=== PATIENT | female | born 1935 | race Caucasian/White ===

== ENCOUNTER → 2017-08-03 | Outpatient (CLI) | payer OTHER, MEDICARE ==
[~2017-08-03] MED LIST: AMOX500C3 PO; ASPEC81 PO; ATOR-22 PO; BIMA0.01 OPB; GADAVIST IV PRN; LEVO50TA6 PO; MULT-506 PO; SENN-65 PO; TIMO0.2534 OPB; WARF5TAB7 PO; [UNRECOGNIZED DRUG - OTHER] PO
--- NOTE | 2017-08-03 16:01 | DIAGNOSTIC IMAGING REPORT ---
BRAIN COMBO HISTORY: 82 years-old Female G31.84 Mild cognitive impairment chronic memory loss COMPARISON: CT head 08/15/2011 TECHNIQUE: Multiplanar multisequence MRI of the brain was obtained both with and without the use of 6.5 mL Gadavist FINDINGS: There is no restricted diffusion to suggest acute infarction. The midline structures including the corpus callosum, brainstem, infundibulum and pituitary gland and optic chiasm appear unremarkable the sagittal T1 images. No cerebellar tonsillar herniation. Degenerative changes of the imaged cervical spine. There is no acute intracranial hemorrhage, midline shift, abnormal extra-axial collections, hydrocephalus or intracranial mass identified. There is moderate generalized cerebral and cerebellar atrophy with ex vacuo ventriculomegaly. Multifocal patchy areas of increased T2/FLAIR signal are noted within the subcortical, deep and periventricular white matter of the cerebral hemispheres bilaterally. Major flow voids at the level of the skull base appear patent. Orbits appear unremarkable. Trace left mastoid effusion. Mild ethmoid sinus disease. Scalp, covering and soft tissues are unremarkable. There is no abnormal intra-axial or extra-axial enhancement identified. IMPRESSION: 1. No acute intracranial abnormality identified. No acute infarction or abnormal enhancement. 2. Moderate atrophy with ex vacuo ventriculomegaly. 3. Multifocal patchy areas of increased T2/FLAIR signal are noted within the subcortical, deep and periventricular white matter of the cerebral hemispheres bilaterally suggesting mild chronic microvascular ischemic changes. 4. Trace left mastoid effusion. The above report was generated using voice recognition software. It may contain grammatical, syntax or spelling errors. Electronically signed by: Wilfredo Javier M.D. 08/03/2017 4:00 PM Dictated Date/Time: 08/03/2017 3:53 PM
== END | disposition home or self-care (01) ==
LOC: C.MRI 14:03
PROVIDERS: ATTEND Psychiatry & Neurology Neurology
DX: G31.84 Mild cognitive impairment of uncertain or unknown etiology (principal)

== ENCOUNTER → 2017-09-15 | Outpatient (CLI) | payer OTHER, MEDICARE ==
[~2017-09-15] MED LIST changes: -GADAVIST IV PRN
== END | disposition home or self-care (01) ==
LOC: C.LAB1850 13:42
PROVIDERS: ATTEND Psychiatry & Neurology Neurology
DX: G31.84 Mild cognitive impairment of uncertain or unknown etiology (principal)

== ENCOUNTER 2018-12-11 11:01 | Inpatient (IN) ==
[2018-12-11] MEDS ORDERED: SODIUM CHLORIDE 0.9% 1000ML 1,000 ML IV ONE (11:23)
[2018-12-11 11:55] LABS: Hematocrit (blood only) 40.1 % (37-47); Hemoglobin 13.9 g/dL (12.0-16.0); Mean Corpuscular Hgb Conc 34.7 g/dL (32-36); Mean Corpuscular Volume 90.3 fL (80-100); Mean Platelet Volume 10.1 fL (7.4-10.4); Platelet Count 155 K/uL (130-400); RDW Coefficient of Variation 14.7 % (11.5-14.5); RDW Standard Deviation 48.4 fL (36.4-46.3); Red Blood Count 4.44 M/uL (4.2-5.4); White Blood Count 15.49 K/uL (4.8-10.8)
[2018-12-11 12:12] LABS: BUN Creatinine Ratio 23.6 (10-20); Calcium 9.2 mg/dl (8.5-10.1); Creatinine Clr Calc Pharmacy 50.7 ml/min; Est GFR (African American) 78.4; Est GFR (Non-African American) 67.6; Potassium 3.4 mmol/L (3.5-5.1)
[2018-12-11 12:13] LABS: Partial Thromboplastin Ratio 1.5; Partial Thromboplastin Time 39.8 Seconds (21.0-31.0); Prothrombin Time 33.5 Seconds (9.0-12.0)
[2018-12-11 12:15] LABS: INR 3.6 (0.9-1.1)
[2018-12-11 12:16] LABS: Troponin I 0.022 ng/ml (0-0.045)
[2018-12-11 12:17] LABS: Basophils # (auto) 0.01 K/uL (0-0.2); Basophils % (auto) 0.1 %; Eosinophils # (auto) 0.01 K/uL (0-0.5); Eosinophils % (auto) 0.1 %; Immature Granulocytes # (auto) 0.06 K/uL (0.00-0.02); Immature Granulocytes % (auto) 0.4 %; Lymphocytes # (auto) 1.12 K/uL (1.2-3.4); Lymphocytes % (auto) 7.2 %; Monocytes # (auto) 0.72 K/uL (0.11-0.59); Monocytes % (auto) 4.6 %; Neutrophils # (auto) 13.57 K/uL (1.4-6.5); Neutrophils % (auto) 87.6 %
--- NOTE | 2018-12-11 12:21 | XRay Report ---
XR chest 1V portable CLINICAL HISTORY: fall COMPARISON STUDY: Chest radiograph January 14, 2014. FINDINGS: There is no pneumothorax or pleural effusion. Moderate cardiomegaly is noted with a prosthe tic cardiac valve and median sternotomy wires. There is no evidence for pulmonary edema. There is min imal left lower lung interstitial thickening. This is probably chronic or reflects atelectasis. IMPRESSION: No acute cardiopulmonary findings. Electronically signed by: Osiel Tafoya M.D. 12/11/2018 12:20 PM
--- NOTE | 2018-12-11 12:22 | XRay Report ---
XR pelvis 1-2V routine CLINICAL HISTORY: Fall. COMPARISON: None FINDINGS: The sacroiliac joints and symphysis pubis are intact. There is no acute fracture within th e pelvis or the hips. IMPRESSION: No acute fracture within the pelvis or hips. Electronically signed by: Osiel Tafoya M.D. 12/11/2018 12:20 PM
[2018-12-11] MEDS ORDERED: IOVERSOL 100ml IV PRN (12:34)
--- NOTE | 2018-12-11 12:40 | CT Scan Report ---
CT OF THE HEAD WITHOUT CONTRAST CLINICAL HISTORY: Fall. Weakness. COMPARISON STUDY: Head CT January 14, 2014. MRI of the brain August 03, 2017. CT DOSE: 1900.40 mGy.cm TECHNIQUE: Helical axial images of the head were obtained without IV contrast. Automated exposure con trol was utilized for the study. A dose lowering technique was utilized adhering to the principles o f ALARA. FINDINGS: No acute intracranial hemorrhage, midline shift or mass effect is present. Ventricular dila tation is unchanged and likely due to atrophy. Basilar cisterns are patent. There are no extra axial collections. There are no findings to suggest acute dural sinus thrombosis or acute territorial infar ct. There is no calvarial fracture. IMPRESSION: 1. No acute intracranial findings. 2. No calvarial fracture. Electronically signed by: Osiel Tafoya M.D. 12/11/2018 12:38 PM
--- NOTE | 2018-12-11 12:43 | CT Scan Report ---
CT OF THE CERVICAL SPINE WITHOUT CONTRAST CLINICAL HISTORY: Fall. Weakness. COMPARISON STUDY: Cervical spine radiographs May 02, 2009. TECHNIQUE: Helical axial images of the cervical spine were obtained without IV contrast. Sagittal a nd coronal reconstructions were viewed. Automated exposure control was utilized for the study. A do se lowering technique was utilized adhering to the principles of ALARA. FINDINGS: Craniocervical junction is intact and there is no acute cervical spine fracture. Mild anter olisthesis of C4 on C5 is similar to prior exam. There is marked disc space narrowing with osteophyto sis at C5-C6 and C6-C7. There is severe multilevel facet arthrosis. There is no prevertebral edema. T he facet joints are intact. IMPRESSION: No acute cervical spine fracture or subluxation. Electronically signed by: Osiel Tafoya M.D. 12/11/2018 12:41 PM
--- NOTE | 2018-12-11 13:00 | CT Scan Report ---
CT OF THE ABDOMEN AND PELVIS WITH CONTRAST CLINICAL HISTORY: Fall. COMPARISON STUDY: Right upper quadrant ultrasound February 23, 2018. TECHNIQUE: Following IV administration of 94 mL of [id number], axial images of the abdomen and pelvi s were obtained from the lung bases to the proximal femurs. Images were reviewed in the axial, sagitt al, and coronal planes. IV contrast was administered without complication. Automated exposure contro l was utilized for the study. A dose lowering technique was utilized adhering to the principles of A CUCA. FINDINGS: No hemoperitoneum or pneumoperitoneum is present. There is moderate cardiomegaly. Prostheti c mitral valve is noted. Left lower lobe opacity is/interstitial thickening is likely chronic. There is a gallstone within the gallbladder without evidence for acute cholecystitis. There is no evidence for traumatic injury to the liver, spleen, adrenal glands, kidneys or pancreas. A 1.4 cm left adrenal nodule is indeterminate although statistically benign. Abdominal aorta is ectatic. There is no evide nce for a bowel obstruction. Caliber and wall thickness of small and large bowel are normal. There is no ascites or lymphadenopathy. There is moderate atherosclerotic plaque within the major vessels. No acute lumbar spine or pelvic fracture is identified. The endometrial/endometrial cavity is prominent . A 1.1 cm focus of enhancement along the right aspect of the endometrium is noted. IMPRESSION: 1. No acute traumatic findings within the abdomen or pelvis. 2. Prominence of the endometrium which may reflect endometrial thickening or fluid within the canal. 1.1 cm nodular enhancing focus along the right second endometrium with a few additional enhancing aldair rine lesions. These may reflect fibroids however the findings could be correlated with evidence for p ostmenopausal bleeding. If present, gynecologic consultation is recommended. 3. Cholelithiasis. 4. Stable dilatation of the proximal abdominal aorta. Electronically signed by: Osiel Tafoya M.D. 12/11/2018 12:58 PM
[2018-12-11 13:20] LABS: Appearance Urine Clear (Clear); Bacteria Urine Automated Negative (Negative); Bilirubin Urine Negative (Negative); Blood Urine 2+ (Negative); Color Urine Dark Yellow; Glucose Urine UA Negative (Negative); Ketones Urine Negative (Negative); Leukocyte Esterase Urine Negative (Negative); Nitrite Urine Negative (Negative); Protein Urine Negative (Negative); Specific Gravity Urine 1.044 (1.000-1.030); Urobilinogen Urine Negative (Negative)
[2018-12-11] MEDS ORDERED: cefTRIAXone SODIUM 1,000 MG/50 ML BAG IV STA (13:31)
--- NOTE | 2018-12-11 14:25 | Emergency Department Note ---
Entered by Bradly Wren acting as a scribe for History of Present Illness General Chief complaint: Fall Stated complaint: FALL IN RESTROOM Time Seen by Provider: 12/11/18 11:14 Source: patient History of Present Illness Provider complaint: syncopal episode Onset (ago): day(s) 1 Location: head Radiation: non-radiation Severity: similar to prior episodes Pain Consistency: + constant Quality: + aching Relieved By: + none Exacerbated By: + none Associated symptoms: + weakness; no fever/chills and no shortness of breath Treatments prior to arrival: none The patient is an 83 year old female who presents to the emergency department with complaints of a fall last night. The patient's friend states she found the patient on the floor this morning in the bathroom when she was coming to see her after making her breakfast. She states that the patient did not know how she fell and 10 minutes later she could not remember anything. He recently traveled back from [place] 2 days ago. Before her travel to [place], she went to the hospital in [place] for disorientation and her last INR was four and she was started on Keflex for a possible UTI infection from her PCP. She is on Coumadin. The patient reports having intermittent nausea. She denies any fever or shortness of breath. Home Medications Home Medications Medication Instructions Recorded Confirmed Type acetaminophen 325 mg capsule 325 mg PO QAM PRN cap 03/31/18 12/11/18 History aspirin 81 mg tablet,delayed 81 mg PO QPM 03/31/18 12/11/18 History release atorvastatin 20 mg tablet 20 mg PO QPM 03/31/18 12/11/18 History bimatoprost 0.01 % eye drops 1 drops OP QAM 03/31/18 12/11/18 History calcium carbonate 500 mg calcium 500 mg PO QPM tab 03/31/18 12/11/18 History (1,250 mg) tablet donepezil 5 mg tablet 5 mg PO QPM 03/31/18 12/11/18 History levothyroxine 50 mcg capsule 50 mcg PO QPM 03/31/18 12/11/18 History multivitamin tablet 1 tab PO QPM 03/31/18 12/11/18 History sennosides 8.6 mg-docusate sodium 1 tab PO DAILY 03/31/18 12/11/18 History 50 mg tablet warfarin 5 mg tablet See Rx Instructions .ROUTE 03/31/18 12/11/18 History .COMPLEX tab cyanocobalamin (vit B-12) 1,000 1,000 mcg PO QPM 12/09/18 12/11/18 History mcg tablet dorzolamide-timolol 1 drp OPB BID 12/11/18 12/11/18 History warfarin See Rx Instructions .ROUTE .COMPLEX 12/11/18 12/11/18 History Allergies Allergy/AdvReac Type Severity Reaction Status Date / Time No Known Allergies Allergy Unverified 12/11/18 11:32 Past Med/Surg History Medical History Bronchitis (Resolved) Dizziness (Acute) Encounter for monitoring coumadin therapy (Acute) A-fib (Acute) Herpes zoster (Acute) Dementia Bilateral leg pain (Acute) Supratherapeutic INR (Acute) Surgical History H/O mitral valve replacement (Resolved) Social History Preferred Language: Maori Feels Safe at Home: Yes Smoking Status: Former smoker Review of Systems See HPI for pertinent positives & negatives. and A total of 10 systems reviewed and were otherwise negative Physical Exam Vital Signs Vital Signs - 24 hr 12/11/18 11:05 12/11/18 11:15 12/11/18 11:30 Temperature 36.4 C L Temperature Source Oral Sepsis Recent Fever Within 48 Hours No Sepsis New/Unexplained Change in Mental Status No Sepsis Action Taken by Nursing No Action Required Pulse Rate 85 105 H 83 Pulse Rate from SpO2 Sensor 99 H Respiratory Rate 97 H 19 20 Respiratory Effort / Characteristics Non-Labored Spontaneous Blood Pressure 87/64 L 98/66 L 94/69 L Blood Pressure Mean 71 76 77 Blood Pressure Position Sitting Pulse Oximetry 97 96 95 Oxygen Delivery Method Room Air Room Air Room Air 12/11/18 12:00 12/11/18 12:37 12/11/18 13:00 Temperature Temperature Source Sepsis Recent Fever Within 48 Hours Sepsis New/Unexplained Change in Mental Status Sepsis Action Taken by Nursing Pulse Rate 101 H 77 72 Pulse Rate from SpO2 Sensor 72 77 77 Respiratory Rate 16 21 21 Respiratory Effort / Characteristics Blood Pressure 99/65 L 106/69 120/75 Blood Pressure Mean 76 81 90 Blood Pressure Position Pulse Oximetry 94 96 97 Oxygen Delivery Method Room Air Room Air Room Air GENERAL: She is oriented to person, place, and time. She appears well-developed and well-nourished. She does not appear distressed. HENT: Exam performed. Head: Normocephalic and atraumatic. Right Ear: External ear normal. No mastoid tenderness. Left Ear: External ear normal. No mastoid tenderness. Mouth/Throat: The oropharynx is clear and moist. No trismus in the jaw. No dental abscesses or uvula swelling. No oropharyngeal exudate or tonsillar abscesses. EYES: Conjunctivae and EOM are normal. Pupils are equal, round, and reactive to light. Right eye exhibits no discharge. Left eye exhibits no discharge. No scleral icterus. NECK: Normal range of motion. Neck supple. No JVD present. No spinous process tenderness present. No carotid bruit present. No rigidity. No tracheal deviation and normal range of motion present. No Brudzinski's sign and no Kernig's sign noted. CV: Heart murmur. Normal rate, irregular rhythm and intact distal pulses. There is no peripheral edema. Palpable radial pulses bue. PULM/CHEST: Effort normal and breath sounds normal. No respiratory distress. No stridor. She has no wheezes. She has no rales. Chest Wall: She exhibits no tenderness. ABD: The abdomen is soft. Bowel sounds are normal. She has no distension. No mass is present. There is no tenderness. There is no rebound, no guarding, no Moran's sign and no tenderness at McBurney's point. Rovsig negative MUSC/SKEL: Normal range of motion. There is no peripheral edema or deformity. No CT lumbar spine tenderness. Pelvis stable. LYMPH: No cervical adenopathy. NEURO: She is alert and oriented to person, place, and time. She has normal strength. No cranial nerve deficit or sensory deficit. Coordination and gait normal. GCS eye subscore is 4. GCS verbal subscore is 5. GCS motor subscore is 6 . cerbellar tests wnl. SKIN: Skin is warm and dry. She is not diaphoretic. PSYCH: She has a normal mood and affect. Her behavior is normal. Judgment and thought content normal. Procedures FAST Exam FAST Exam 1: Fluid in Morison's pouch: No Fluid in Splenorenal Junction: No Fluid around bladder, Transverse view: No Fluid around bladder, Sagittal view: No Fluid in Pericardial Sac: No Gross Wall Motion Abnormality: No Study normal for this patient: Yes Course 1114:The patient was evaluated in room B7. A physical exam was performed.The patient was initially found to be hypotensive and was placed on monitor tech and had a large bore IV access to obtain fluid was started, bedside FAST negative, see procedure note. 1334: Vital signs are stable and there is no traumatic injury. Mild elevation of leukocyte count is 15.4 and her lactic acid level is 2.1. The patient's blood pressure improved status post 1 L IV fluid bolus. I discuss the results with the family and the patient. Her WBC and lactic acid values show that she could have a UTI. The family does not feel comfortable taking her home due to the recent fall. Dr. Ayala- [facility] hospitalist, agreed to accept the patient for further evaluation. Administered Medications Ioversol (Optiray 320 100ml) 94 ml IV ONCE PRN PRN Reason: Interaction Checking Stop: 12/15/18 12:33 Last Admin: 12/11/18 12:35 Dose: 1 ml Documented by: [id number] Discontinued Medications Sodium Chloride (Nss 1000ml) 1,000 mls @ 999 mls/hr IV .Q1H1M ONE Stop: 12/11/18 12:23 Last Infusion: 12/11/18 12:43 Dose: 0 mls/hr Documented by: [id number] Admin: 12/11/18 11:42 Dose: 999 mls/hr Documented by: [id number] Medical Decision Making Medical Records Attestation: I reviewed the patient's medical records. Home Medications Current Medication List: was personally reviewed by me Laboratory Data Attestation: I reviewed the patient's lab results. Result diagrams: 12/11/18 11:33 12/11/18 11:33 Lab Results 12/11/18 12/11/18 12/11/18 Range/Units 11:33 11:33 11:33 WBC 15.49 H (4.8-10.8) K/uL RBC 4.44 (4.2-5.4) M/uL Hgb 13.9 (12.0-16.0) g/dL Hct 40.1 (37-47) % MCV 90.3 (80-100) fL MCH 31.3 (25-34) pg MCHC 34.7 (32-36) g/dL RDW Std Deviation 48.4 H (36.4-46.3) fL RDW Coeff of Asa 14.7 H (11.5-14.5) % Plt Count 155 (130-400) K/uL MPV 10.1 (7.4-10.4) fL Immature Gran % (Auto) 0.4 % Neut % (Auto) 87.6 % Lymph % (Auto) 7.2 % Louisa % (Auto) 4.6 % Eos % (Auto) 0.1 % Baso % (Auto) 0.1 % Immature Gran # (Auto) 0.06 H (0.00-0.02) K/uL Neut # (Auto) 13.57 H (1.4-6.5) K/uL Lymph # (Auto) 1.12 L (1.2-3.4) K/uL Louisa # (Auto) 0.72 H (0.11-0.59) K/uL Eos # (Auto) 0.01 (0-0.5) K/uL Baso # (Auto) 0.01 (0-0.2) K/uL PT 33.5 H (9.0-12.0) Seconds INR 3.6 H (0.9-1.1) APTT 39.8 H (21.0-31.0) Seconds PTT Ratio 1.5 Sodium 134 L (136-145) mmol/L Potassium 3.4 L (3.5-5.1) mmol/L Chloride 99 (98-107) mmol/L Carbon Dioxide 27 (21-32) mmol/L Anion Gap 8.0 (3-11) BUN 19 H (7-18) mg/dl Creatinine 0.81 (0.6-1.2) mg/dl Est Cr Clr Drug Dosing 50.7 ml/min Est GFR ( Amer) 78.4 Est GFR (Non-Af Amer) 67.6 BUN/Creatinine Ratio 23.6 H (10-20) Glucose 177 H (70-99) mg/dl Lactate (0.4-2.0) mmol/L Calcium 9.2 (8.5-10.1) mg/dl Total Creatine Kinase 25 L (26-192) U/L Troponin I 0.022 (0-0.045) ng/ml Lipase 179 (73-393) U/L Urine Color Urine Appearance (Clear) Urine pH (4.5-7.5) Ur Specific [place] (1.000-1.030) Urine Protein (Negative) Urine Glucose (UA) (Negative) Urine Ketones (Negative) Urine Blood (Negative) Urine Nitrite (Negative) Urine Bilirubin (Negative) Urine Urobilinogen (Negative) Ur Leukocyte Esterase (Negative) Urine WBC (Auto) (0-5) /hpf Urine RBC (Auto) (0-4) /hpf U Hyaline Cast (Auto) (0-5) /lpf U Epithel Cells (Auto) (0-5) /lpf Urine Bacteria (Auto) (Negative) 12/11/18 12/11/18 Range/Units 11:40 13:00 WBC (4.8-10.8) K/uL RBC (4.2-5.4) M/uL Hgb (12.0-16.0) g/dL Hct (37-47) % MCV (80-100) fL MCH (25-34) pg MCHC (32-36) g/dL RDW Std Deviation (36.4-46.3) fL RDW Coeff of Asa (11.5-14.5) % Plt Count (130-400) K/uL MPV (7.4-10.4) fL Immature Gran % (Auto) % Neut % (Auto) % Lymph % (Auto) % Louisa % (Auto) % Eos % (Auto) % Baso % (Auto) % Immature Gran # (Auto) (0.00-0.02) K/uL Neut # (Auto) (1.4-6.5) K/uL Lymph # (Auto) (1.2-3.4) K/uL Louisa # (Auto) (0.11-0.59) K/uL Eos # (Auto) (0-0.5) K/uL Baso # (Auto) (0-0.2) K/uL PT (9.0-12.0) Seconds INR (0.9-1.1) APTT (21.0-31.0) Seconds PTT Ratio Sodium (136-145) mmol/L Potassium (3.5-5.1) mmol/L Chloride (98-107) mmol/L Carbon Dioxide (21-32) mmol/L Anion Gap (3-11) BUN (7-18) mg/dl Creatinine (0.6-1.2) mg/dl Est Cr Clr Drug Dosing ml/min Est GFR ( Amer) Est GFR (Non-Af Amer) BUN/Creatinine Ratio (10-20) Glucose (70-99) mg/dl Lactate 2.1 H* (0.4-2.0) mmol/L Calcium (8.5-10.1) mg/dl Total Creatine Kinase (26-192) U/L Troponin I (0-0.045) ng/ml Lipase (73-393) U/L Urine Color Dark Yellow Urine Appearance Clear (Clear) Urine pH 6.0 (4.5-7.5) Ur Specific [place] 1.044 H (1.000-1.030) Urine Protein Negative (Negative) Urine Glucose (UA) Negative (Negative) Urine Ketones Negative (Negative) Urine Blood 2+ H (Negative) Urine Nitrite Negative (Negative) Urine Bilirubin Negative (Negative) Urine Urobilinogen Negative (Negative) Ur Leukocyte Esterase Negative (Negative) Urine WBC (Auto) 1-5 (0-5) /hpf Urine RBC (Auto) 10-30 H (0-4) /hpf U Hyaline Cast (Auto) 1-5 (0-5) /lpf U Epithel Cells (Auto) 10-20 H (0-5) /lpf Urine Bacteria (Auto) Negative (Negative) Imaging Data Radiologist's Impression: Radiology results as stated below. Per my review and the radiologists interpretation: XR pelvis 1-2V routine CLINICAL HISTORY: Fall. COMPARISON: None FINDINGS: The sacroiliac joints and symphysis pubis are intact. There is no acute fracture within the pelvis or the hips. IMPRESSION: No acute fracture within the pelvis or hips. Electronically signed by: Osiel Tafoya M.D. 12/11/2018 12:[address] OF THE HEAD WITHOUT CONTRAST CLINICAL HISTORY: Fall. Weakness. COMPARISON STUDY: Head CT January 14, 2014. MRI of the brain August 03, 2017. CT DOSE: 1900.40 mGy.cm TECHNIQUE: Helical axial images of the head were obtained without IV contrast. Automated exposure control was utilized for the study. A dose lowering christianne hnique was utilized adhering to the principles of ALARA. FINDINGS: No acute intracranial hemorrhage, midline shift or mass effect is present. Ventricular dilatation is unchanged and likely due to atrophy. Basilar cisterns are patent. There are no extra axial collections. There are no findings to suggest acute dural sinus thrombosis or acute territorial infarct. There is no calvarial fracture. IMPRESSION: 1. No acute intracranial findings. 2. No calvarial fracture. Electronically signed by: Osiel Tafoya M.D. 12/11/2018 12:38 PM Dictated: 12/11/18 1236 Transcribed: 12/11/18 1236 Dictated: 12/11/18 1220 Transcribed: 12/11/18 1220 XR chest 1V portable CLINICAL HISTORY: fall COMPARISON STUDY: Chest radiograph January 14, 2014. FINDINGS: There is no pneumothorax or pleural effusion. Moderate cardiomegaly is noted with a prosthetic cardiac valve and median sternotomy wires. There is no evidence for pulmonary edema. There is minimal left lower lung interstitial thickening. This is probably chronic or reflects atelectasis. IMPRESSION: No acute cardiopulmonary findings. Electronically signed by: Osiel Tafoya M.D. 12/11/2018 12:20 PM Dictated: 12/11/[address] OF THE CERVICAL SPINE WITHOUT CONTRAST CLINICAL HISTORY: Fall. Weakness. COMPARISON STUDY: Cervical spine radiographs May 02, 2009. TECHNIQUE: Helical axial images of the cervical spine were obtained without IV contrast. Sagittal and coronal reconstructions were viewed. Automated exposure control was utilized for the study. A dose lowering technique was utilized adhering to the principles of ALARA. FINDINGS: Craniocervical junction is intact and there is no acute cervical spine fracture. Mild anterolisthesis of C4 on C5 is similar to prior exam. There is marked disc space narrowing with osteophytosis at C5-C6 and C6-C7. There is severe multilevel facet arthrosis. There is no prevertebral edema. The facet juan luis ints are intact. IMPRESSION: No acute cervical spine fracture or subluxation. Electronically signed by: Osiel Tafoya M.D. 12/11/2018 12:41 PM Dictated: 12/11/18 1236 Transcribed: 12/11/[address] OF THE ABDOMEN AND PELVIS WITH CONTRAST CLINICAL HISTORY: Fall. COMPARISON STUDY: Right upper quadrant ultrasound February 23, 2018. TECHNIQUE: Following IV administration of 94 mL of Optiray-320, axial images of the abdomen and pelvis were obtained from the lung bases to the proximal femurs. Images were reviewed in the axial, sagittal, and coronal planes. IV contrast was administered without complication. Automated exposure control was utilized for the study. A dose lowering technique was utilized adhering to the principles of ALARA. FINDINGS: No hemoperitoneum or pneumoperitoneum is present. There is moderate cardiomegaly. Prosthetic mitral valve is noted. Left lower lobe opacity is/interstitial thickening is likely chronic. There is a gallstone within the gallbladder without evidence for acute cholecystitis. There is no evidence for traumatic injury to the liver, spleen, adrenal glands, kidneys or pancreas. A 1.4 cm left adrenal nodule is indeterminate although statistically benign. Abdominal aorta is ectatic. There is no evidence for a bowel obstruction. Caliber and wall thickness of small and large bowel are normal. There is no ascites or lymphadenopathy. There is moderate atherosclerotic plaque within the major vessels. No acute lumbar spine or pelvic fracture is identified. The endometrial/endometrial cavity is prominent. A 1.1 cm focus of enhancement along the right aspect of the endometrium is noted. IMPRESSION: 1. No acute traumatic findings within the abdomen or pelvis. 2. Prominence of the endometrium which may reflect endometrial thickening or fluid within the canal. 1.1 cm nodular enhancing focus along the right second endometrium with a few additional enhancing uterine lesions. These may reflect fibroids however the findings could be correlated with evidence for postmenopausal bleeding. If present, gynecologic consultation is recommended. 3. Cholelithiasis. 4. Stable dilatation of the proximal abdominal aorta. Electronically signed by: Osiel Tafoya M.D. 12/11/2018 12:58 PM ECG Data Attestation: I personally reviewed and interpreted this ECG as follows: Indication: syncope Rate (beats per minute): 88 Rhythm: atrial fibrillation Findings: + other (QRS and QTC WNL); no ST depression and no ST elevation Blood Pressure Blood Pressure Findings: Normal blood pressure MDM Narrative 1114:The patient was evaluated in room B7. A physical exam was performed.The patient was initially found to be hypotensive and was placed on monitor tech and had a large bore IV access to obtain fluid was started, bedside FAST negative, see procedure note. 1334: Vital signs are stable and there is no traumatic injury. Mild elevation of leukocyte count is 15.4 and her lactic acid level is 2.1. The patient's blood pressure improved status post 1 L IV fluid bolus. I discuss the results with the family and the patient. Her WBC and lactic acid values show that she could have a UTI. The family does not feel comfortable taking her home due to the recent fall. Dr. Ayala- [facility] hospitalist, agreed to accept the patient for further evaluation. Impression & Plan Fall, UTI (urinary tract infection), Sepsis Discharge Plan Visit Data Chief Complaint: Fall Stated Complaint: FALL IN RESTROOM ED Provider: Juan Bauer Discharge Problem: Fall, UTI (urinary tract infection), Sepsis Patient Disposition: Being Evaluated by Hospitalist Forms Stand Alone Forms: [facility] Prescriptions Prescriptions: No Action aspirin [Ecotrin Low Strength] 81 mg tablet,delayed release (DR/EC) 81 mg PO QPM RF: 0 atorvastatin [Lipitor] 20 mg tablet 20 mg PO QPM RF: 0 acetaminophen 325 mg capsule 325 mg PO QAM PRN (Reason: Pain) RF: 0 bimatoprost [Lumigan] 0.01 % drops 1 drops OP QAM RF: 0 donepezil [Aricept] 5 mg tablet 5 mg PO QPM RF: 0 levothyroxine 50 mcg capsule 50 mcg PO QPM RF: 0 multivitamin tablet 1 tab PO QPM RF: 0 calcium carbonate [Oyster Shell Calcium] 500 mg calcium (1,250 mg) tablet 500 mg PO QPM RF: 0 sennosides-docusate sodium [Senna Plus] 8.6-50 mg tablet 1 tab PO DAILY RF: 0 warfarin 5 mg tablet See Rx Instructions .ROUTE .COMPLEX RF: 0 cyanocobalamin (vitamin B-12) 1,000 mcg tablet 1,000 mcg PO QPM RF: 0 warfarin 2.5 mg Tablet See Rx Instructions .ROUTE .COMPLEX RF: 0 dorzolamide-timolol 22.3-6.8 mg/mL drops 1 drp OPB BID RF: 0 Referrals Referrals: Ben Gomez MD [Primary Care Provider] - Discharge Problem: Fall Qualifiers: Encounter type: initial encounter Qualified Code(s): W19.XXXA - Unspecified fall, initial encounter UTI (urinary tract infection) Qualifiers: Urinary tract infection type: site unspecified Hematuria presence: with hematuria Qualified Code(s): N39.0 - Urinary tract infection, site not specified Sepsis Qualifiers: Sepsis type: sepsis due to unspecified organism Qualified Code(s): A41.9 - Sepsis, unspecified organism The scribe's documentation has been prepared under my direction and personally reviewed by me in its entirety. I confirm that the note above accurately reflects all work, treatment, procedures, and medical decision making performed by me.
--- NOTE | 2018-12-11 14:49 | History & Physical Report ---
Date of Service December 11, 2018 Assessment & Plan (1) Altered mental status: Uncertain etiology UTI vs other infection vs dementia exacerbated by jet lag vs other Was an issue preflight and pt did appear to improve s/p abx at OSH, however it was felt that she did not have an infection ?? after cx returned?? and no abx were continued EKG is WNL Possible UTI, cx pending TSH, B12, Lyme pending Blood cx pending Ceftriaxone started in the ED, will continue CT head neg for acute CTAP neg for infectious concerns CXR neg for acute (2) Fall: Uncertain circumstances Imaging neg for MSK issues from fall PT/OT pending Daughter is requesting placement as she cannot care for her on her own in her current state EKG is WNL Possible UTI, cx pending TSH, B12, Lyme pending Blood cx pending Ceftriaxone started in the ED, will continue CK WNL (3) UTI (urinary tract infection): Dx as outpt after UA in office on 12/09 Started keflex on 12/10 Ceftriaxone in the ED, will continue UA on admission with only 2+ blood, neg for leuk est, nitrites Cx pending HypoTN on arrival to the ED, now WNL WBC and lactic acid elevated Afebrile, not tachycardic (4) A-fib: continue home meds Coumadin 2.5mg /Wed, 5mg other days INR was 4.1 on 12/09, 3.6 on admission Monitor (5) Hypokalemia: Mild, replace and monitor (6) Memory loss: Chronic issue Takes donepezil Follows with Dr. Key if needed and was to see him this week for annual f/u (7) B12 deficiency: New dx at OSH B12 pending MCV is high normal (8) Hypothyroid: continue home meds TSH pending (9) Hyperlipidemia: continue home meds (10) DVT prophylaxis: Supratherapeutic on coumadin History of Present Illness Primary Care Provider: Ben Gomez MD 83 y/o F who was brought to the ED by her daughter after being found on the floor in the bathroom. When asked, pt states she has no idea why she is in the ED. She states that she feels like her usual self. Pt takes donepezil at baseline for some minor memory issues. She follows with Dr. Key for this and is to have her yearly f/u with him next week. Pt was in her usual state of health until about 1 month ago. She and her daughter had planned a trip to [place] to visit a friend who lives there. Pt had been at her usual (walking around the block daily unassisted, driving, ambulating without issue, etc), but while they were at the airport in [place], she suddenly became very "feeble" and could hardly walk. She was also very disoriented, not knowing they were in an airport. She suggested they just "go back home on the way to [place]" and was making other statements that were not appropriate for the situation they were in. She was taken to a hospital in [place] and had testing done over several days. Daughter does not have any paperwork from this with her, but states the final dx was dehydration. She was also given potassium while admitted and was started on B12. At one point she was told that the pt had a UTI and was on abx, but then the next day was told that this was not the case and no further abx were given. Pt seemed to be feeling better, so they went to [place] at that time time for 2 weeks. Daughter states that while they were there, pt was no longer making nonsensical statements, but she was very fatigued. She required a wheelchair for tourist activities and was only able to do one activity a day, which was unlike her. She did not seem confused again until they were on the return flight home. She made several statements that were again not appropriate for the situation and she did not remember that they were on an airplane at one point. She also fell in the bathroom of the plane and daughter had to assist her out of the bathroom. Pt returned to [place] on Wednesday and slept for about 24 hours. She has continued to feel fatigued and disoriented but no specific complaints. Her appetite has been low. She was seen by an REFERRAL CLERK at her PCP's office on Wednesday and was dx with dehydration based on labs. She gave a urine sample at that time and they were call yesterday stating that she has a UTI. She was started on Keflex last night. Pt denies urinary sx. Daughter woke up this morning and found pt lying on the bathroom floor. Pt has no memory of falling and could not tell her what happened. She could not get up on her own. There were no signs of trauma. They came to the ED at that point. She was seen by [facility] on Wednesday and her INR was elevated at 4.1. Her coumadin was held for this. Pt denies fever, SOB, chest pain, abd pain, n/v/c/d, LE swelling. Pt does have pain in her feet, but this is a chronic issue. Allergies Allergy/AdvReac Type Severity Reaction Status Date / Time No Known Allergies Allergy Unverified 12/11/18 11:32 Home Medications Home Medications Medication Instructions Recorded Confirmed Type acetaminophen 325 mg capsule 325 mg PO QAM PRN cap 03/31/18 12/11/18 History aspirin 81 mg tablet,delayed 81 mg PO QPM 03/31/18 12/11/18 History release atorvastatin 20 mg tablet 20 mg PO QPM 03/31/18 12/11/18 History bimatoprost 0.01 % eye drops 1 drops OP QAM 03/31/18 12/11/18 History calcium carbonate 500 mg calcium 500 mg PO QPM tab 03/31/18 12/11/18 History (1,250 mg) tablet donepezil 5 mg tablet 5 mg PO QPM 03/31/18 12/11/18 History levothyroxine 50 mcg capsule 50 mcg PO QPM 03/31/18 12/11/18 History multivitamin tablet 1 tab PO QPM 03/31/18 12/11/18 History sennosides 8.6 mg-docusate sodium 1 tab PO DAILY 03/31/18 12/11/18 History 50 mg tablet warfarin 5 mg tablet See Rx Instructions .ROUTE 03/31/18 12/11/18 History .COMPLEX tab cyanocobalamin (vit B-12) 1,000 1,000 mcg PO QPM 12/09/18 12/11/18 History mcg tablet dorzolamide-timolol 1 drp OPB BID 12/11/18 12/11/18 History warfarin See Rx Instructions .ROUTE .COMPLEX 12/11/18 12/11/18 History Past Med/Surg History Medical History Bronchitis (Resolved) Dizziness (Acute) Encounter for monitoring coumadin therapy (Acute) A-fib (Acute) Herpes zoster (Acute) Dementia Bilateral leg pain (Acute) Supratherapeutic INR (Acute) Surgical History H/O mitral valve replacement (Resolved) Social History Preferred Language: Kazakh Feels Safe at Home: Yes Smoking Status: Former smoker Smoking End Date: Hx Alcohol Use: No Hx Substance Use: No Review of Systems Review of Systems: Pertinent positives and negatives reviewed in HPI--all others negative Physical Exam Constitutional: WD/WN, vitals as above Eyes: normal visual van by confrontation and + anicteric sclerae Neck: normal visual inspection and trachea midline Respiratory: normal respiratory effort, lungs clear to auscultation Cardiovascular: Rate/Rhythm: regular rate; + abnormal rhythm Gastrointestinal (Abdomen): Inspection/Auscultation: abdomen not distended Percussion/Palpation: abdomen soft; abdomen nontender Musculoskeletal: Head/Neck/Chest: normocephalic and head atraumatic negative for edema, peripheral pulses intact Skin: no rashes, warm and dry Neurologic: CN's II-XI intact bilaterally, awake and + confused Speech / Cognition: normal speech Psychiatric: Orientation: oriented to person, oriented to place (knows she is in a hospital but does not know what town she is in) and cooperative; + not oriented to time (does not know the year, answers fall to the season, does know the president) Eye Contact: good eye contact Speech: normal rate/rhythm/volume of speech Affect: euthymic affect Thought Process: no word rohan Knows that she lives in [place] Results & Data Vital Signs (Past 12 Hours) Vital Signs Temp Pulse Resp BP Pulse Ox 12/11/18 13:00 72 21 120/75 97 12/11/18 12:37 77 21 106/69 96 12/11/18 12:00 101 H 16 99/65 L 94 12/11/18 11:30 83 20 94/69 L 95 12/11/18 11:15 105 H 19 98/66 L 96 12/11/18 11:05 36.4 C L 85 97 H 87/64 L 97 Diagnostic Findings CXR: neg for acute CT head: neg for acute CT c-spine: neg for acute Pelvic XR: neg for acute CTAP: neg for acute, possible fibroids noted, adrenal mass noted that is likely benign ECG Rhythm: atrial fibrillation Code Status & VTE Plan Code Status Full code VTE Prophylaxis Plan VTE Prophylaxis will be ordered: Yes PG Care Time/CCT Total # of Minutes Spent Total Time Spent with Patient: Total time spent is greater than 50% in coordination of care (as documented) at patient's floor/unit and/or counseling patient: (1) Fall Encounter type: initial encounter Qualified Code(s): W19.XXXA - Unspecified fall, initial encounter
[2018-12-11] MEDS ORDERED: ACETAMINOPHEN 325 MG PO PRN (16:07)
[2018-12-11] MEDS ORDERED: ONDANSETRON INJ 2 MG/ML 2 ML VIAL IV PRN (16:07)
[2018-12-11] MEDS ORDERED: MAGNESIUM HYDROXIDE SUSP 30 ML UDC PO PRN (16:07)
[2018-12-11] MEDS ORDERED: ACETAMINOPHEN 325 MG TAB PO PRN (16:07)
[2018-12-11] MEDS ORDERED: POTASSIUM CHLORIDE 20 MEQ TABCR PO ONE (16:30)
[2018-12-11 17:38] LABS: Lyme Ab IgG w/WB Rflx Negative (Negative); Lyme Ab IgM w/WB Rflx Negative (Negative)
[2018-12-11] MEDS: CALCIUM CARBONATE 500 MG CHEWABLE TAB PO SCH (17:38)
[2018-12-11] MEDS: MULTIVITAMIN TAB PO SCH (17:38)
[2018-12-11] MEDS: CYANOCOBALAMIN 500 MCG TABLET (VITAMIN B-12) PO SCH (20:46)
[2018-12-11] MEDS: DORZOLAMIDE/TIMOLOL 22.3/6.8MG/ML 10 ML BTL OPB SCH (20:46)
[2018-12-11] MEDS: ASPIRIN 81 MG ECTAB PO SCH (20:46)
[2018-12-11] MEDS: DONEPEZIL HCL 5 MG TAB PO SCH (20:46)
[2018-12-11] MEDS: LEVOTHYROXINE SODIUM 50 MCG TABLET PO SCH (20:47)
[2018-12-11] MEDS ORDERED: CALCIUM CARBONATE 500 MG CHEWABLE TAB PO SCH (21:00)
[2018-12-11] MEDS ORDERED: MULTIVITAMIN TAB PO SCH (21:00)
[2018-12-11] MEDS ORDERED: CALCIUM CARBONATE 1250MG TAB PO SCH (21:00)
[2018-12-11] MEDS: ATORVASTATIN 20 MG TAB PO SCH (21:05)
[2018-12-12 06:30] LABS: Basophils # (auto) 0.01 K/uL (0-0.2); Basophils % (auto) 0.1 %; Eosinophils # (auto) 0.02 K/uL (0-0.5); Eosinophils % (auto) 0.2 %; Hematocrit (blood only) 37.9 % (37-47); Immature Granulocytes # (auto) 0.03 K/uL (0.00-0.02); Immature Granulocytes % (auto) 0.3 %; Lymphocytes # (auto) 0.99 K/uL (1.2-3.4); Lymphocytes % (auto) 9.9 %; Mean Corpuscular Hgb Conc 34.3 g/dL (32-36); Mean Corpuscular Volume 90.5 fL (80-100); Monocytes # (auto) 1.01 K/uL (0.11-0.59); Neutrophils # (auto) 7.99 K/uL (1.4-6.5); Neutrophils % (auto) 79.5 %; Platelet Count 145 K/uL (130-400); RDW Coefficient of Variation 14.8 % (11.5-14.5); RDW Standard Deviation 49.1 fL (36.4-46.3); Red Blood Count 4.19 M/uL (4.2-5.4); White Blood Count 10.05 K/uL (4.8-10.8)
[2018-12-12 06:39] LABS: Prothrombin Time 37.4 Seconds (9.0-12.0)
[2018-12-12 06:52] LABS: BUN Creatinine Ratio 23.6 (10-20); Calcium 9.2 mg/dl (8.5-10.1); Creatinine Clr Calc Pharmacy 72.1 ml/min; Est GFR (African American) 100.1; Est GFR (Non-African American) 86.3; Potassium 3.9 mmol/L (3.5-5.1)
[2018-12-12] MEDS: DOCUSATE SODIUM/SENNA 50/8.6MG TAB PO SCH (07:54)
[2018-12-12] MEDS: DORZOLAMIDE/TIMOLOL 22.3/6.8MG/ML 10 ML BTL OPB SCH ×2 (07:54→20:27)
[2018-12-12] MEDS ORDERED: DORZOLAMIDE/TIMOLOL 22.3/6.8MG/ML 10 ML BTL OP ONE (09:00)
[2018-12-12 11:32] LABS: Albumin Level 3.2 gm/dl (3.4-5.0); Bilirubin Direct 0.3 mg/dl (0-0.2); Magnesium 2.2 mg/dl (1.8-2.4); Total Protein 7.5 gm/dl (6.4-8.2)
[2018-12-12] MEDS: D5W AND NSS 1,000 ML IV SCH (13:58)
[2018-12-12] MEDS: cefTRIAXone SODIUM 2,000 MG in DEXTROSE 5% 50 ML IV SCH (14:22)
[2018-12-12] MEDS: MULTIVITAMIN TAB PO SCH (16:49)
[2018-12-12] MEDS: CALCIUM CARBONATE 500 MG CHEWABLE TAB PO SCH (16:49)
--- NOTE | 2018-12-12 19:33 | Hospitalist Progress Note ---
Date of Service December 12, 2018 Assessment & Plan (1) Endocarditis of mitral valve: Time course of dental work in early October, followed by development of illness 2-3 weeks later, and ongoing sickness since -coupled with + blood cultures for GPC in chains (strep or enterococcus) and echo findings- are all concerning for MV endocarditis. Continue rocephin although if the pathogen is enterococcus will need to be changed to PCN agent. Repeat blood cultures today. Check sed rate and crp in am. Formal cardiology consult to be requested (does she need PAULA or simply assume endocarditis?). Consider ID consultation. Supportive care. Abnormal LFTs could be due to embolic phenomenon (liver looked anatomically ok on CT at admission). (2) Bacteremia: due to endocarditis? no skin source on exam. no pneumonia on cxr. urine cx from outpatient [facility] office was NEGATIVE. has gallstones on CT but no symptoms to suggest cholecystitis. repeat blood cx's today. echo findings as noted. cardiology consult requested. consider ID consult as well. Present on Admission?: Yes (3) Hypothyroid: TSH wnl. cont synthroid. Present on Admission?: Yes (4) UTI (urinary tract infection): suspected, but ruled out at this time. (5) Altered mental status: 2nd to bacteremia. CT head noted to be normal. if endocarditis is truly present cannot rule out septic embolic to brain. consider MRI brain. daughter reports NO baseline dementia. Present on Admission?: Yes (6) Fall: in setting of generalized illness from bacteremia. PT, OT. treat underlying infection. Present on Admission?: Yes (7) Supratherapeutic INR: continue to hold coumadin. INR am. LFTs noted to be mildly high today- cause? liver dysfunction will contribute to supratherapeutic INR. Present on Admission?: Yes (8) H/O mitral valve replacement: bioprosthetic. replaced 15 years ago at [facility] per daughter. echo findings as noted. cardiology consultation. Present on Admission?: Yes (9) A-fib: rates controlled. on chronic coumadin at home. INR supratherapeutic at this time. Present on Admission?: Yes (10) DVT prophylaxis: coumadin daughter updated twice at bedside today Subjective patient with fatigue and poor appetite. this has been ongoing for several weeks. she DID have a dental cleaning about October 26. she took prophylaxis with amoxicillin prior to this procedure. had MVR with bovine valve about 15 years ago at [facility]. 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 tele with quentin overnight - rates controlled. patient denies headaches, sore throat, rash, cp, dyspnea, cough, abd pain, vomiting, dysuria, joint pain/swelling, myalgias. when she was hospitalized at a hospital in [place] in October prior to traveling to [place] there was initially concern of UTI but daughter was ultimately told there was NO UTI. unsure if blood cx's were sent during that stay. Review of Systems Constitutional: + fatigue, + weakness and + anorexia; no fever, no chills, no sweats, no body aches and no weight loss Ear, Nose, Mouth, Throat: no nasal congestion Respiratory: no cough and no dyspnea Gastrointestinal: no abdominal pain and no vomiting Genitourinary: no dysuria Physical Exam Constitutional: + ill appearing and + thin; no acute distress ENMT: external ear and nose normal, oropharynx normal Respiratory: normal respiratory effort, lungs clear to auscultation Cardiovascular: Rate/Rhythm: regular rate and + irregularly irregular Heart Sounds: normal S1, normal S2 and + murmur (2/6 systolic LLSB) Vessels: posterior tibial pulses present and dorsalis pedis pulses present; no JVD Extremities: no edema Gastrointestinal (Abdomen): normal bowel sounds, soft, nontender, no hepatosplenomegaly Musculoskeletal: no cyanosis or clubbing, extremities motor strength 5/5 Skin: no rashes, warm and dry (no janeway lesions; no splinter hemorrhages) Psychiatric: A+Ox3, euthymic affect Lymphatic: no cervical lymphadenopathy Results & Data Vital Signs (Past 12 Hours) Vital Signs Temp Pulse Resp BP BP Pulse Ox 12/12/18 15:54 36.3 C L 81 16 119/81 95 12/12/18 09:58 98 12/12/18 08:35 36.5 C 78 16 111/52 L 95 Laboratory Results Laboratory Results - last 24 hr 12/11/18 12/12/18 12/12/18 14:54 05:55 05:55 WBC 10.05 RBC 4.19 L Hgb 13.0 Hct 37.9 MCV 90.5 MCH 31.0 MCHC 34.3 RDW Std Deviation 49.1 H RDW Coeff of Asa 14.8 H Plt Count 145 MPV 10.0 Immature Gran % (Auto) 0.3 Neut % (Auto) 79.5 Lymph % (Auto) 9.9 [facility] % (Auto) 10.0 Eos % (Auto) 0.2 Baso % (Auto) 0.1 Immature Gran # (Auto) 0.03 H Neut # (Auto) 7.99 H Lymph # (Auto) 0.99 L [facility] # (Auto) 1.01 H Eos # (Auto) 0.02 Baso # (Auto) 0.01 PT 37.4 H INR 4.0 H Sodium Potassium Chloride Carbon Dioxide Anion Gap BUN Creatinine Est Cr Clr Drug Dosing Est GFR ( Amer) Est GFR (Non-Af Amer) BUN/Creatinine Ratio Glucose POC Lactic Acid Juan Miguel 1.69 Calcium Magnesium Total Bilirubin Direct Bilirubin AST ALT Alkaline Phosphatase Total Protein Albumin 12/12/18 12/12/18 05:55 10:23 WBC RBC Hgb Hct MCV MCH MCHC RDW Std Deviation RDW Coeff of Asa Plt Count MPV Immature Gran % (Auto) Neut % (Auto) Lymph % (Auto) [facility] % (Auto) Eos % (Auto) Baso % (Auto) Immature Gran # (Auto) Neut # (Auto) Lymph # (Auto) [facility] # (Auto) Eos # (Auto) Baso # (Auto) PT INR Sodium 136 Potassium 3.9 Chloride 104 Carbon Dioxide 27 Anion Gap 5.0 BUN 14 Creatinine 0.57 L Est Cr Clr Drug Dosing 72.1 Est GFR ( Amer) 100.1 Est GFR (Non-Af Amer) 86.3 BUN/Creatinine Ratio 23.6 H Glucose 85 POC Lactic Acid Juan Miguel Calcium 9.2 Magnesium 2.2 Total Bilirubin 1.0 Direct Bilirubin 0.3 H AST 63 H ALT 75 Alkaline Phosphatase 192 H Total Protein 7.5 Albumin 3.2 L Diagnostic Findings blood cx's 2/2 sets + for GPC in chains echo - MV bioprosthetic valve with possible vegetation PG Care Time/CCT Total # of Minutes Spent Total Time Spent with Patient: Total time spent is greater than 50% in coordination of care (as documented) at patient's floor/unit and/or counseling patient: (1) Hypothyroid Hypothyroidism type: acquired Qualified Code(s): E03.9 - Hypothyroidism, unspecified (2) UTI (urinary tract infection) Urinary tract infection type: site unspecified Hematuria presence: without hematuria Qualified Code(s): N39.0 - Urinary tract infection, site not specified (3) Altered mental status Altered mental status type: delirium Qualified Code(s): R41.0 - Disorientation, unspecified (4) Fall Encounter type: initial encounter Qualified Code(s): W19.XXXA - Unspecified fall, initial encounter (5) A-fib Atrial fibrillation type: chronic Qualified Code(s): I48.2 - Chronic atrial fibrillation
[2018-12-12] MEDS: CYANOCOBALAMIN 500 MCG TABLET (VITAMIN B-12) PO SCH (20:27)
[2018-12-12] MEDS: LEVOTHYROXINE SODIUM 50 MCG TABLET PO SCH (20:27)
[2018-12-12] MEDS: DONEPEZIL HCL 5 MG TAB PO SCH (20:27)
[2018-12-12] MEDS: ATORVASTATIN 20 MG TAB PO SCH (20:27)
[2018-12-12] MEDS: ASPIRIN 81 MG ECTAB PO SCH (20:27)
[2018-12-13] MEDS: D5W AND NSS 1,000 ML IV SCH (03:46)
[2018-12-13 06:35] LABS: INR 3.1 (0.9-1.1); Prothrombin Time 29.5 Seconds (9.0-12.0)
[2018-12-13 06:56] LABS: Albumin Level 2.4 gm/dl (3.4-5.0); BUN Creatinine Ratio 21.9 (10-20); C Reactive Protein 4.68 mg/dl (0-0.29); Calcium 8.8 mg/dl (8.5-10.1); Est GFR (African American) 103.1; Potassium 3.8 mmol/L (3.5-5.1)
[2018-12-13 07:05] LABS: Albumin Globulin Ratio 0.7 (0.9-2); Bilirubin,Total 0.6 mg/dl (0.2-1); Globulin 3.7 gm/dl (2.5-4.0); Total Protein 6.1 gm/dl (6.4-8.2)
[2018-12-13] MEDS: BIMATOPROST 0.01% OP SCH (08:02)
[2018-12-13] MEDS: DOCUSATE SODIUM/SENNA 50/8.6MG TAB PO SCH (08:02)
[2018-12-13] MEDS: DORZOLAMIDE/TIMOLOL 22.3/6.8MG/ML 10 ML BTL OPB SCH ×2 (08:02→20:17)
--- NOTE | 2018-12-13 14:02 | Cardiology Consultation ---
Date of Consultation December 13, 2018 Assessment & Plan (1) A-fib: She is known to have permanent atrial fibrillation. She is not appear to be symptomatic from the arrhythmia. Rate control appears to be adequate She has been on appropriate anticoagulation. Present on Admission?: Yes (2) Endocarditis of mitral valve: Patient did have streptococcal bacteremia. She does appear to have a lesion on the mitral valve. She is not appear to have other sequelae of endocarditis. The valve function is normal. I suspect she does have bacteremia related to this lesion. She has been started on antibiotics and should complete the appropriate extended course for treatment of prosthetic mitral valve endocarditis. We do not have other studies with which to compare her current images. Will attempt to contact [facility] where she has been followed for many years to see if there has been any evidence of abnormality involving the mitral valve previously. It is unclear whether this infection has caused any of the symptoms which prompted her admission. Most of the symptoms describe seem like progressive dementia or perhaps worsening of dementia due to environmental factors. History of Present Illness Reason for Consultation: Bacteremia Requesting Physician: Matthew Attending Physician: Wm Castro History of Present Illness The patient is an 83-year-old woman with a history of mitral valve replacement who was admitted to [facility] with symptoms of altered mental status. Much of today's information was obtained from the daughter who was present for the interview. It seems that the patient does suffer from an element of baseline dementia. Over the past few weeks she has been slightly more confused. Her daughter brought her to the airport for a planned trip to [place] and an she was noted to be confused. She was brought to a local hospital where she was admitted for a couple of days. She is felt to be dehydrated may have had a urinary tract infection. The patient's symptoms improved to the degree where she was able to take the trip to [facility] in the did remain confused during that trip. Upon returned to the [facility] she was again evaluated for the symptoms and eventually brought to [facility] where she was discovered to have Streptococcus pneumoniae bacteremia. The patient reportedly was cold through most of her trip to [facility]. There were no objective findings of fevers. There were no other reports of specific symptoms such as a cough, breathing trouble, chest pain, edema or abdominal complaints. The patient has had an element of anorexia and according to her daughter eats primarily yogurt and fruit. The patient did suffer a fall in her bathroom recently. The circumstances of the fall are unclear as the patient has no recollection of the event. Allergies Allergy/AdvReac Type Severity Reaction Status Date / Time No Known Allergies Allergy Unverified 12/11/18 11:32 Home Medications Home Medications Medication Instructions Recorded Confirmed Type acetaminophen 325 mg capsule 325 mg PO QAM PRN cap 03/31/18 12/11/18 History aspirin 81 mg tablet,delayed 81 mg PO QPM 03/31/18 12/11/18 History release atorvastatin 20 mg tablet 20 mg PO QPM 03/31/18 12/11/18 History bimatoprost 0.01 % eye drops 1 drops OP QAM 03/31/18 12/11/18 History calcium carbonate 500 mg calcium 500 mg PO QPM tab 03/31/18 12/11/18 History (1,250 mg) tablet donepezil 5 mg tablet 5 mg PO QPM 03/31/18 12/11/18 History levothyroxine 50 mcg capsule 50 mcg PO QPM 03/31/18 12/11/18 History multivitamin tablet 1 tab PO QPM 03/31/18 12/11/18 History sennosides 8.6 mg-docusate sodium 1 tab PO DAILY 03/31/18 12/11/18 History 50 mg tablet warfarin 5 mg tablet See Rx Instructions .ROUTE 03/31/18 12/11/18 History .COMPLEX tab cyanocobalamin (vit B-12) 1,000 1,000 mcg PO QPM 12/09/18 12/11/18 History mcg tablet dorzolamide-timolol 1 drp OPB BID 12/11/18 12/11/18 History warfarin See Rx Instructions .ROUTE .COMPLEX 12/11/18 12/11/18 History Patient History Medical History Bronchitis (Resolved) Dizziness (Acute) Encounter for monitoring coumadin therapy (Acute) A-fib (Chronic) Herpes zoster (Acute) Dementia Bilateral leg pain (Acute) Supratherapeutic INR (Acute) Surgical History H/O mitral valve replacement (Chronic) Social History Preferred Language: Maldivian Communication Ability: Effective Beliefs That Will Affect Care: None Current Living Situation: Family Current Living Situation Comment: lives with daughter Feels Safe at Home: Yes Smoking Status: Former smoker Hx Alcohol Use: No Hx Substance Use: No Review of Systems Review of Systems: Unobtainable due to cognitive status Physical Exam Physical Exam: She is alert and oriented x3. Mood affect appear normal. She answered all questions appropriately. However, many of her answers were incorrect according to her daughter. HEENT: Sclerae are anicteric. Pupils are equal and reactive to light and accommodation. Extraocular movements were intact. Neuro: Cranial nerves intact Neck: Examination of the submandibular region did not reveal any significant lymphadenopathy. Carotids are palpable bilaterally and free of bruits on auscultation. There was no evidence of jugular venous distention. The thyroid was not enlarged. Lungs: Lungs are clear to auscultation bilaterally. There are no rales wheezes or rhonchi. She has normal respiratory effort without use of accessory muscles. There is normal pulmonary excursion. Cardiac: The rhythm was regular. S1 and S2 were normal. There are no murmurs on examination. The PMI was not markedly displaced on palpation. Abdomen: The abdomen was soft and nontender. Extremities: Patient has bilateral radial pulses that are equal in intensity. There is no evidence cyanosis or clubbing. There was no evidence of significant peripheral edema bilaterally. Skin: There are no rashes noted on examination today. Results & Data Vital Signs (Past 12 Hours) Vital Signs Temp Pulse Resp BP Pulse Ox 12/13/18 07:30 36.5 C 80 18 143/89 H 96 Laboratory Results Abnormal Lab Results 12/13/18 12/13/18 12/13/18 05:57 05:57 05:57 ESR 41 H PT 29.5 H INR 3.1 H Sodium 137 Potassium 3.8 Chloride 106 Carbon Dioxide 24 Anion Gap 6.0 BUN 11 Creatinine 0.52 L Est Cr Clr Drug Dosing 79.0 Est GFR ( Amer) 103.1 Est GFR (Non-Af Amer) 89.0 BUN/Creatinine Ratio 21.9 H Glucose 93 Calcium 8.8 Total Bilirubin 0.6 AST 51 H ALT 63 Alkaline Phosphatase 149 H C-Reactive Protein 4.68 H Total Protein 6.1 L Albumin 2.4 L Globulin 3.7 Albumin/Globulin Ratio 0.7 L Diagnostic Findings Echocardiogram obtained yesterday revealed normal LV systolic function. Normal function of a bioprosthetic mitral valve. 9 millimeter mobile lesion involving the structure of the prosthetic mitral valve CT scan of the head did not reveal any acute process CT scan of the abdomen and pelvis revealed mild dilation of the proximal aorta but no other acute process Chest x-ray did not reveal any evidence of acute pulmonary disease ECG Additional Comments: Atrial fibrillation with controlled ventricular response and nonspecific ST and T-wave changes (1) A-fib Atrial fibrillation type: chronic Qualified Code(s): I48.2 - Chronic atrial fibrillation
--- NOTE | 2018-12-13 14:25 | Infectious Disease Consult ---
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 follow repeat cultures. doubt she would be surgical candidate. History of Present Illness Attending Physician: Wm Castro pt admitted with change in mental status, appears to be worsening over several weeks. pt had dental cleaning in October and then had febrile illness afterwards lasting weeks. did travel to [place] and had increased fatigue, confusion during that time. was also briefly hospitalized in [place]. most recently was treated for uti with keflex from pcp just prior to admission. was found on bath[place] floor and brought to hospital by family. In ER she was found to be afebrile but had wbc of 15, UA negative. blood cultures growing alpha strep, no final to be done, 09/29 bottles. repeat cultures on 12/12 pending. Has h/o MVR, tte did show 9mm veg on MV. She is on rocephin and tolerating well. denies f/c on my exam. no cp, sob, adame, cough. denies abd pain, no n/v/d, no gu symptoms. had ct head and spine - negative, CT abd ? fibroid. states she is tolerating abx well. eating well. Allergies Allergy/AdvReac Type Severity Reaction Status Date / Time No Known Allergies Allergy Unverified 12/11/18 11:32 Home Medications Home Medications Medication Instructions Recorded Confirmed Type acetaminophen 325 mg capsule 325 mg PO QAM PRN cap 03/31/18 12/11/18 History aspirin 81 mg tablet,delayed 81 mg PO QPM 03/31/18 12/11/18 History release atorvastatin 20 mg tablet 20 mg PO QPM 03/31/18 12/11/18 History bimatoprost 0.01 % eye drops 1 drops OP QAM 03/31/18 12/11/18 History calcium carbonate 500 mg calcium 500 mg PO QPM tab 03/31/18 12/11/18 History (1,250 mg) tablet donepezil 5 mg tablet 5 mg PO QPM 03/31/18 12/11/18 History levothyroxine 50 mcg capsule 50 mcg PO QPM 03/31/18 12/11/18 History multivitamin tablet 1 tab PO QPM 03/31/18 12/11/18 History sennosides 8.6 mg-docusate sodium 1 tab PO DAILY 03/31/18 12/11/18 History 50 mg tablet warfarin 5 mg tablet See Rx Instructions .ROUTE 03/31/18 12/11/18 History .COMPLEX tab cyanocobalamin (vit B-12) 1,000 1,000 mcg PO QPM 12/09/18 12/11/18 History mcg tablet dorzolamide-timolol 1 drp OPB BID 12/11/18 12/11/18 History warfarin See Rx Instructions .ROUTE .COMPLEX 12/11/18 12/11/18 History Patient History Medical History Bronchitis (Resolved) Dizziness (Acute) Encounter for monitoring coumadin therapy (Acute) A-fib (Chronic) Herpes zoster (Acute) Dementia Bilateral leg pain (Acute) Supratherapeutic INR (Acute) Surgical History H/O mitral valve replacement (Chronic) Social History Preferred Language: Danish Communication Ability: Effective Beliefs That Will Affect Care: None Current Living Situation: Family Current Living Situation Comment: lives with daughter Feels Safe at Home: Yes Smoking Status: Former smoker Hx Alcohol Use: No Hx Substance Use: No Review of Systems Review of Systems: All systems reviewed & are unremarkable except as noted in HPI & below Physical Exam Constitutional: WD/WN, vitals as above Eyes: PERRL, conjunctivae normal, anicteric sclerae ENMT: external ear and nose normal, oropharynx normal Neck: normal visual inspection Respiratory: normal respiratory effort, lungs clear to auscultation Cardiovascular: RRR, no murmur, no edema Gastrointestinal (Abdomen): normal bowel sounds, soft, nontender, no hepatosplenomegaly Musculoskeletal: no cyanosis or clubbing, extremities motor strength 5/5 Skin: no rashes, warm and dry Psychiatric: A+Ox3, euthymic affect Results & Data Vital Signs (Past 12 Hours) Vital Signs Temp Pulse Resp BP Pulse Ox 12/13/18 07:30 36.5 C 80 18 143/89 H 96 Laboratory Results Microbiology 12/12/18 Unknown Urine,Clean Catch Urine Culture - Preliminary No growth - Less than 1,000 colonies/mL, Final report to follow. 12/12/18 10:30 Blood Aerobic Blood Culture - Preliminary No growth in Aerobic bottle after 24 hours. 12/12/18 10:30 Blood Anaerobic Blood Culture - Preliminary No growth in Anaerobic bottle after 24 hours. 12/12/18 10:23 Blood Aerobic Blood Culture - Preliminary No growth in Aerobic bottle after 24 hours. 12/12/18 10:23 Blood Anaerobic Blood Culture - Preliminary No growth in Anaerobic bottle after 24 hours. 12/11/18 14:56 Blood Aerobic Blood Culture - Final Alpha strep not S.pne/enteroco 12/11/18 14:56 Blood Anaerobic Blood Culture - Final Alpha strep not S.pne/enteroco 12/11/18 14:45 Blood Aerobic Blood Culture - Final Alpha strep not S.pne/enteroco 12/11/18 14:45 Blood Anaerobic Blood Culture - Final Alpha strep not S.pne/enteroco
[2018-12-13] MEDS: cefTRIAXone SODIUM 2,000 MG in DEXTROSE 5% 50 ML IV SCH (14:41)
[2018-12-13] MEDS ORDERED: WARFARIN SOD 5 MG TAB PO SCH (16:00)
[2018-12-13] MEDS: CALCIUM CARBONATE 500 MG CHEWABLE TAB PO SCH (17:42)
[2018-12-13] MEDS: MULTIVITAMIN TAB PO SCH ×2 (17:42→17:43)
--- NOTE | 2018-12-13 19:51 | Magnetic Resonance Report ---
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 FINDINGS: Motion degraded exam. Social Service Assistant localizer images demonstrate no gross extracranial abnormality. There is no restricted diffusion to suggest acute or subacute infarction. Midline structures including the cor pus callosum, brainstem, optic chiasm, and pituitary gland appear unremarkable on the sagittal T1 ser ies. Multiple subcentimeter cystic foci noted about the pineal gland. Degenerative changes are noted about the imaged cervical spine. No acute intracranial hemorrhage, midline shift, abnormal extra-axial collection, hydrocephalus or in tracranial mass. Age-related involutional changes with ex vacuo ventriculomegaly. Mild to moderate pa tchy T2/FLAIR hyperintensities about the white matter redemonstrated suggestive of chronic microvascu lar ischemic disease. Moderate-sized bilateral mastoid effusions. Major flow voids at the level of th e skull base appear patent. Bilateral cataract repair. Skull and soft tissues are unremarkable. Mild mucosal thickening of the paranasal sinuses. Mild rightward bowing and spurring of the nasal septum. IMPRESSION: 1. Motion degraded exam without acute intracranial abnormality identified. 2. Age-related involutional changes with findings suggestive of chronic microvascular ischemic diseas e. 3. Moderate bilateral mastoid effusions. The above report was generated using voice recognition software. It may contain grammatical, syntax o r spelling errors. Electronically signed by: Wilfredo Javier M.D. 12/13/2018 7:50 PM
[2018-12-13] MEDS: LEVOTHYROXINE SODIUM 50 MCG TABLET PO SCH (20:16)
[2018-12-13] MEDS: ATORVASTATIN 20 MG TAB PO SCH (20:16)
[2018-12-13] MEDS: ASPIRIN 81 MG ECTAB PO SCH (20:16)
[2018-12-13] MEDS: DONEPEZIL HCL 5 MG TAB PO SCH (20:16)
[2018-12-13] MEDS: CYANOCOBALAMIN 500 MCG TABLET (VITAMIN B-12) PO SCH (20:17)
--- NOTE | 2018-12-13 20:47 | Hospitalist Progress Note ---
Date of Service December 13, 2018 Assessment & Plan (1) Endocarditis of mitral valve: Time course of dental work in early October, followed by development of illness 2-3 weeks later, and ongoing sickness since -coupled with blood cx's positive for alpha strep and echo findings- all concerning for MV endocarditis. Continue rocephin x 6 weeks. Once repeat blood cx's deemed negative can place PICC line. Baseline sed rate/crp noted. Abnormal LFTs could be due to embolic phenomenon (liver looked anatomically ok on CT at admission however). Confusion could be from septic emboli from SBE -- MRI brain requested. Appreciate cardiology and ID consultations. (2) Bacteremia: due to endocarditis. no skin source on exam. no pneumonia on cxr. urine cx from outpatient [facility] office was NEGATIVE. repeat urine cx from here negative. has gallstones on CT but no symptoms to suggest cholecystitis. repeat blood cx's thus far negative. appreciate cardiology and ID consults. will need 6-week course of IV rocephin for MV endocarditis. (3) Hypothyroid: TSH wnl. cont synthroid. (4) UTI (urinary tract infection): suspected at admission, but ruled out at this time. (5) Altered mental status: CT head noted to be normal. In light of probable endocarditis cannot rule out septic embolic to brain. Thus, will obtain MRI brain. daughter reports NO baseline dementia. If MRI brain does not show septic emboli this could be metabolic encephalopathy from infection. Supportive care. (6) Fall: in setting of generalized illness from bacteremia. PT, OT. treat underlying infection. may need rehab. (7) Supratherapeutic INR: INR 3.1. Resume coumadin at 5mg today, then 2.5mg tomorrow, etc. daily INR. LFTs noted to be mildly high today- cause? liver dysfunction will contribute to supratherapeutic INR. (8) H/O mitral valve replacement: bioprosthetic. replaced 15 years ago at [facility] per daughter. echo findings as noted. cardiology consultation. they have requested previous echo from that hospital for comparison purposes. (9) A-fib: rates controlled. on chronic coumadin at home. resuming coumadin today. (10) Abnormal LFTs: cause? no signs/symptoms of acute cholecystitis. reactive to endocarditis/bacteremia? other? repeat in am for stability. (11) DVT prophylaxis: coumadin daughter updated at bedside today progressing nicely Subjective appetite fair - no change in this yet. still w/ fatigue. still w/ confusion as confirmed by daughter. confusion waxing/waning. tele stable. no fevers. seen by cardiology and ID -- 6-week rocephin course advised. PAULA deferred since TTE showed the MV vegetation so well. Review of Systems Constitutional: + fatigue and + anorexia; no fever and no chills Respiratory: no cough and no dyspnea Cardiovascular: no chest pain Gastrointestinal: + nausea; no abdominal pain, no vomiting and no constipation mild dyspepsia Physical Exam Constitutional: + ill appearing and + thin; no acute distress ENMT: external ear and nose normal, oropharynx normal Respiratory: normal respiratory effort, lungs clear to auscultation Cardiovascular: Rate/Rhythm: regular rate and + irregularly irregular Heart Sounds: normal S1, normal S2 and + murmur (2/6 systolic LLSB) Vessels: posterior tibial pulses present and dorsalis pedis pulses present; no JVD Extremities: no edema Gastrointestinal (Abdomen): normal bowel sounds, soft, nontender, no hepatosplenomegaly Skin: no rashes, warm and dry (no janeway lesions; no splinter hemorrhages) Psychiatric: Orientation: alert, oriented to person and oriented to place; + not oriented to time Results & Data Vital Signs (Past 12 Hours) Vital Signs Temp Pulse Resp BP Pulse Ox 12/13/18 19:44 36.8 C 84 20 128/87 96 12/13/18 15:53 36.9 C 81 18 118/54 L 96 Laboratory Results Laboratory Results - last 24 hr 12/13/18 12/13/18 12/13/18 05:57 05:57 05:57 ESR 41 H PT 29.5 H INR 3.1 H Sodium 137 Potassium 3.8 Chloride 106 Carbon Dioxide 24 Anion Gap 6.0 BUN 11 Creatinine 0.52 L Est Cr Clr Drug Dosing 79.0 Est GFR ( Amer) 103.1 Est GFR (Non-Af Amer) 89.0 BUN/Creatinine Ratio 21.9 H Glucose 93 Calcium 8.8 Total Bilirubin 0.6 AST 51 H ALT 63 Alkaline Phosphatase 149 H C-Reactive Protein 4.68 H Total Protein 6.1 L Albumin 2.4 L Globulin 3.7 Albumin/Globulin Ratio 0.7 L 12/14/18 12/14/18 05:21 05:21 ESR PT 23.6 H INR 2.5 H Sodium Pending Potassium Pending Chloride Pending Carbon Dioxide Pending Anion Gap Pending BUN Pending Creatinine Pending Est Cr Clr Drug Dosing Pending Est GFR ( Amer) Pending Est GFR (Non-Af Amer) Pending BUN/Creatinine Ratio Pending Glucose Pending Calcium Pending Total Bilirubin Pending AST Pending ALT Pending Alkaline Phosphatase Pending C-Reactive Protein Total Protein Pending Albumin Pending Globulin Pending Albumin/Globulin Ratio Pending Diagnostic Findings blood cx's from admission - alpha strep repeat blood cx's from yesterday - negative to date PG Care Time/CCT Total # of Minutes Spent Total Time Spent with Patient: Total time spent is greater than 50% in coordination of care (as documented) at patient's floor/unit and/or counseling patient: (1) UTI (urinary tract infection) Hematuria presence: without hematuria Urinary tract infection type: site unspecified Qualified Code(s): N39.0 - Urinary tract infection, site not specified (2) A-fib Atrial fibrillation type: chronic Qualified Code(s): I48.2 - Chronic atrial fibrillation (3) Hypothyroid Hypothyroidism type: acquired Qualified Code(s): E03.9 - Hypothyroidism, unspecified (4) Altered mental status Altered mental status type: delirium Qualified Code(s): R41.0 - Disorientation, unspecified (5) Fall Encounter type: initial encounter Qualified Code(s): W19.XXXA - Unspecified fall, initial encounter
[2018-12-14 05:57] LABS: INR 2.5 (0.9-1.1); Prothrombin Time 23.6 Seconds (9.0-12.0)
[2018-12-14 06:20] LABS: Albumin Level 2.5 gm/dl (3.4-5.0); Calcium 9.1 mg/dl (8.5-10.1); Creatinine Clr Calc Pharmacy 73.4 ml/min; Est GFR (African American) 100.6; Est GFR (Non-African American) 86.8; Potassium 3.7 mmol/L (3.5-5.1)
[2018-12-14 06:23] LABS: Albumin Globulin Ratio 0.6 (0.9-2); Bilirubin,Total 0.6 mg/dl (0.2-1); Total Protein 6.5 gm/dl (6.4-8.2)
[2018-12-14] MEDS: DORZOLAMIDE/TIMOLOL 22.3/6.8MG/ML 10 ML BTL OPB SCH ×2 (08:23→21:11)
[2018-12-14] MEDS: BIMATOPROST 0.01% OP SCH (08:23)
[2018-12-14] MEDS: DOCUSATE SODIUM/SENNA 50/8.6MG TAB PO SCH (08:23)
--- NOTE | 2018-12-14 13:47 | Infectious Disease Progress Nt ---
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 follow repeat cultures. doubt she would be surgical candidate. if cultures negative, in am, ok for picc line. Subjective repeat blood cultures negative, afebrile. tolerating abx. MRI brain done yesterday due to change in mental status and concern for spetic emboli, negative. ESR 41, creat stable. Results & Data Vital Signs (Past 12 Hours) Vital Signs Temp Pulse Resp BP Pulse Ox 12/14/18 07:33 36.7 C 79 20 113/79 95 Laboratory Results Microbiology 12/12/18 10:30 Blood Aerobic Blood Culture - Preliminary No growth in Aerobic bottle after 48 hours. 12/12/18 10:30 Blood Anaerobic Blood Culture - Preliminary No growth in Anaerobic bottle after 48 hours. 12/12/18 10:23 Blood Aerobic Blood Culture - Preliminary No growth in Aerobic bottle after 48 hours. 12/12/18 10:23 Blood Anaerobic Blood Culture - Preliminary No growth in Anaerobic bottle after 48 hours. 12/12/18 Unknown Urine,Clean Catch Urine Culture - Preliminary No growth - Less than 1,000 colonies/mL, Final report to follow. 12/11/18 14:56 Blood Aerobic Blood Culture - Final Alpha strep not S.pne/enteroco 12/11/18 14:56 Blood Anaerobic Blood Culture - Final Alpha strep not S.pne/enteroco 12/11/18 14:45 Blood Aerobic Blood Culture - Final Alpha strep not S.pne/enteroco 12/11/18 14:45 Blood Anaerobic Blood Culture - Final Alpha strep not S.pne/enteroco
[2018-12-14] MEDS: cefTRIAXone SODIUM 2,000 MG in DEXTROSE 5% 50 ML IV SCH (14:05)
[2018-12-14] MEDS ORDERED: WARFARIN SOD 2.5 MG TAB PO SCH (16:00)
--- NOTE | 2018-12-14 21:38 | Hospitalist Progress Note ---
Date of Service December 14, 2018 Assessment & Plan (1) Endocarditis of mitral valve: Time course of dental work in early October, followed by development of illness 2-3 weeks later, and ongoing sickness since -coupled with blood cx's positive for alpha strep and echo findings- all concerning for MV endocarditis. Continue rocephin x 6 weeks from date of last negative culture. If repeat cultures continue to remain negative through tomorrow AM will obtain PICC. Consent obtained from patient and her daughter today; questions answered. Baseline sed rate/crp noted. Abnormal LFTs could be due to embolic phenomenon (liver looked anatomically ok on CT at admission however). Awaiting RUQ u/s. MRI brain w/o septic emboli. Appreciate cardiology and ID consultations. (2) Septicemia: 2nd to MV endocarditis. (3) Bacteremia: due to endocarditis. no skin source on exam. no pneumonia on cxr. urine cx from outpatient [facility] office was NEGATIVE. repeat urine cx from here negative. has gallstones on CT but no symptoms to suggest cholecystitis. repeat blood cx's thus far negative. appreciate cardiology and ID consults. will need 6-week course of IV rocephin for MV endocarditis. (4) Altered mental status: 2nd to METABOLIC ENCEPHALOPATHY FROM SEPTICEMIA/ENDOCARDITIS. CT head noted to be normal. MRI BRAIN w/o septic emboli. Large ventricles and atrophy noted. I explained these findings to pt and her daughter today. Could easily have baseline mild cognitive impairment. Will need to see what baseline mental status is like in a few weeks once MV endocarditis has been aggressively treated. (5) UTI (urinary tract infection): suspected at admission, but ruled out at this time. (6) Hypothyroid: TSH wnl. cont synthroid. (7) Fall: in setting of generalized illness from bacteremia. PT, OT. treat underlying infection. needs rehab. (8) Supratherapeutic INR: resolved resumed normal coumadin dosing daily INR (9) H/O mitral valve replacement: bioprosthetic. replaced 15 years ago at [facility] per daughter. echo findings as noted. cardiology consultation appreciated. they have requested previous echo from that hospital for comparison purposes. (10) A-fib: rates controlled. on chronic coumadin at home. resumed coumadin. (11) Abnormal LFTs: cause? no signs/symptoms of acute cholecystitis. reactive to endocarditis/bacteremia? septic emboli to liver? RUQ u/s pending. (12) DVT prophylaxis: coumadin daughter updated at bedside again today progressing nicely dispo - SNF for rehab PICC line insertion tomorrow Subjective patient w/o complaints during the visit daughter at bedside no fevers, chills, cp, cough, dyspnea, abd pain eating better daughter reports confusion mildly improved both on board with SNF for rehab after d/c Review of Systems Constitutional: + fatigue and + weakness Respiratory: no dyspnea and no dyspnea on exertion Cardiovascular: no chest pain Gastrointestinal: no abdominal pain, no nausea and no vomiting Musculoskeletal: no joint pain Integumentary: no rash Physical Exam Constitutional: well developed and + thin; no acute distress ENMT: external ear and nose normal, oropharynx normal Respiratory: normal respiratory effort, lungs clear to auscultation Cardiovascular: Rate/Rhythm: regular rate and + irregularly irregular Heart Sounds: normal S1, normal S2 and + murmur (2/6 systolic LLSB) Vessels: posterior tibial pulses present and dorsalis pedis pulses present; no JVD Extremities: no edema Gastrointestinal (Abdomen): normal bowel sounds, soft, nontender, no hepatosplenomegaly Skin: no rashes, warm and dry (no janeway lesions; no splinter hemorrhages) Psychiatric: Orientation: alert, oriented to person and oriented to place; + not oriented to time Affect: + blunted affect Results & Data Vital Signs (Past 12 Hours) Vital Signs Temp Pulse Resp BP Pulse Ox 12/14/18 15:20 36.4 C L 78 20 101/80 96 Laboratory Results Laboratory Results - last 24 hr 12/14/18 12/14/18 05:21 05:21 PT 23.6 H INR 2.5 H Sodium 136 Potassium 3.7 Chloride 105 Carbon Dioxide 24 Anion Gap 7.0 BUN 11 Creatinine 0.56 L Est Cr Clr Drug Dosing 73.4 Est GFR ( Amer) 100.6 Est GFR (Non-Af Amer) 86.8 BUN/Creatinine Ratio 19.0 Glucose 91 Calcium 9.1 Total Bilirubin 0.6 AST 54 H ALT 72 Alkaline Phosphatase 161 H Total Protein 6.5 Albumin 2.5 L Globulin 4.0 Albumin/Globulin Ratio 0.6 L PG Care Time/CCT Total # of Minutes Spent Total Time Spent with Patient: Total time spent is greater than 50% in coordination of care (as documented) at patient's floor/unit and/or counseling patient: (1) UTI (urinary tract infection) Hematuria presence: without hematuria Urinary tract infection type: site unspecified Qualified Code(s): N39.0 - Urinary tract infection, site not specified (2) A-fib Atrial fibrillation type: chronic Qualified Code(s): I48.2 - Chronic atrial fibrillation (3) Hypothyroid Hypothyroidism type: acquired Qualified Code(s): E03.9 - Hypothyroidism, unspecified (4) Altered mental status Altered mental status type: delirium Qualified Code(s): R41.0 - Disorientation, unspecified (5) Fall Encounter type: initial encounter Qualified Code(s): W19.XXXA - Unspecified fall, initial encounter
[2018-12-14] MEDS: CALCIUM CARBONATE 500 MG CHEWABLE TAB PO SCH (21:54)
[2018-12-14] MEDS: MULTIVITAMIN TAB PO SCH (21:54)
[2018-12-14] MEDS: DONEPEZIL HCL 5 MG TAB PO SCH (21:54)
[2018-12-14] MEDS: LEVOTHYROXINE SODIUM 50 MCG TABLET PO SCH (21:55)
[2018-12-14] MEDS: ASPIRIN 81 MG ECTAB PO SCH (21:55)
[2018-12-14] MEDS: CYANOCOBALAMIN 500 MCG TABLET (VITAMIN B-12) PO SCH (21:55)
[2018-12-14] MEDS: ATORVASTATIN 20 MG TAB PO SCH (21:55)
--- NOTE | 2018-12-14 22:58 | Ultrasound Report ---
US gallbladder CLINICAL HISTORY: 83 years-old Female presenting with gallstones, abnormal LFTs. TECHNIQUE: Real-time grayscale and limited color Doppler ultrasound imaging of the abdomen limited to the right upper quadrant was performed. COMPARISON: CT from 12/11/2018. FINDINGS: Pancreas: Visualized portions of the pancreatic head and body normal. Liver: Normal echogenicity and echotexture. The liver measures 16.2 cm in maximal sagittal dimension. No sonographic evidence of hepatic mass. Main portal vein patent with normal directional flow. Biliary: No intrahepatic biliary ductal dilatation. Common bile duct measures up to 4 mm in diameter. Gallbladder: Gallstones with a physiologically distended gallbladder. No evidence of wall thickening or pericholecystic fluid or inflammatory change. Sonographic Moran's sign negative. Right kidney: Subcentimeter hyperechogenic lesion in the right kidney. A hypodense lesion was evident in this region on prior CT though no macroscopic fat was definitively visualized due to its small si ze. Ascites: None. Other: Ectasia of the proximal aorta which measures 2.8 x 3.0 cm in axial dimensions. This is unchang ed from prior CT. IMPRESSION: 1. Cholelithiasis. No biliary ductal dilatation or significant evidence to suggest cholecystitis. 2. Subcentimeter hyperechogenic lesion in the right kidney. 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 We ll-defined hypodense lesion was evident in this region on prior CT though its small size precluded ev aluation for macroscopic fat. 3. 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 Electronically signed by: Bam Pereira M.D. 12/14/2018 10:57 PM
[2018-12-15 05:56] LABS: Prothrombin Time 19.1 Seconds (9.0-12.0)
[2018-12-15] MEDS: DORZOLAMIDE/TIMOLOL 22.3/6.8MG/ML 10 ML BTL OPB SCH ×2 (07:45→21:05)
[2018-12-15] MEDS: BIMATOPROST 0.01% OP SCH (07:45)
[2018-12-15] MEDS: DOCUSATE SODIUM/SENNA 50/8.6MG TAB PO SCH (07:47)
--- NOTE | 2018-12-15 10:49 | XRay Report ---
XR chest 1V portable CLINICAL HISTORY: confirm PICC line placement COMPARISON STUDY: 12/11/2018 FINDINGS: There are postsurgical changes of midline sternotomy and valvular replacement. The heart is enlarged. There is no focal pulmonary consolidation. There is been interval placement of a left-side d PICC catheter. The tip projects of the superior vena cava.[ IMPRESSION: Interval placement of a left-sided PICC catheter. The tip projects over the superior vena cava. Electronically signed by: Brennan Naik M.D. 12/15/2018 10:48 AM
[2018-12-15] MEDS: cefTRIAXone SODIUM 2,000 MG in DEXTROSE 5% 50 ML IV SCH (14:21)
[2018-12-15] MEDS ORDERED: WARFARIN SOD 5 MG TAB PO SCH (16:00)
[2018-12-15] MEDS: CALCIUM CARBONATE 500 MG CHEWABLE TAB PO SCH (17:14)
[2018-12-15] MEDS: MULTIVITAMIN TAB PO SCH (17:26)
--- NOTE | 2018-12-15 19:56 | Hospitalist Progress Note ---
Date of Service December 15, 2018 Assessment & Plan (1) Endocarditis of mitral valve: Time course of dental work in early October, followed by development of illness 2-3 weeks later, and ongoing sickness since -coupled with blood cx's positive for alpha strep and echo findings- all concerning for MV endocarditis. Continue rocephin x 6 weeks from date of last negative culture. PICC line placed today - left arm. Abnormal LFTs - RUQ u/s shows normal appearing liver. Etiology? MRI brain w/o septic emboli. Appreciate cardiology and ID consultations. Overall doing well. (2) Septicemia: 2nd to MV endocarditis. (3) Bacteremia: due to endocarditis. no skin source on exam. no pneumonia on cxr. urine cx from outpatient [facility] office was NEGATIVE. repeat urine cx from here negative. has gallstones on CT but no symptoms to suggest cholecystitis. repeat blood cx's cont to be negative. appreciate cardiology and ID consults. will need 6-week course of IV rocephin for MV endocarditis. (4) Altered mental status: 2nd to METABOLIC ENCEPHALOPATHY FROM SEPTICEMIA/ENDOCARDITIS. IMPROVING. CT head noted to be normal. MRI BRAIN w/o septic emboli. Large ventricles and atrophy noted. Could easily have baseline mild cognitive impairment. (5) Hypothyroid: TSH wnl. cont synthroid. (6) Fall: in setting of generalized illness from bacteremia. PT, OT. treat underlying infection. needs rehab. (7) Supratherapeutic INR: resolved resumed normal coumadin dosing daily INR (8) H/O mitral valve replacement: bioprosthetic. replaced 15 years ago at [facility] per daughter. echo findings as noted. cardiology consultation appreciated. they have requested previous echo from that hospital for comparison purposes. (9) A-fib: rates controlled. on chronic coumadin at home. resumed coumadin. INR today 2. repeat INR in am. (10) Abnormal LFTs: cause? no signs/symptoms of acute cholecystitis. reactive to endocarditis/bacteremia? RUQ u/s without liver lesions. will repeat LFTs am. (11) DVT prophylaxis: coumadin dispo - SNF for rehab hopefully d/c there tomorrow Subjective no issues overnight daughter again at bedside PICC line placed today, left arm no new issues feels good eating better mentation better Review of Systems Constitutional: no fever and no chills Respiratory: no cough and no dyspnea Cardiovascular: no chest pain and no dyspnea on exertion Gastrointestinal: no abdominal pain, no nausea, no vomiting and no diarrhea/loose stools Physical Exam Constitutional: well developed and + thin; no acute distress ENMT: external ear and nose normal, oropharynx normal Respiratory: normal respiratory effort, lungs clear to auscultation Cardiovascular: Rate/Rhythm: regular rate and + irregularly irregular Heart Sounds: normal S1, normal S2 and + murmur (2/6 systolic LLSB) Vessels: posterior tibial pulses present and dorsalis pedis pulses present; no JVD Extremities: no edema Gastrointestinal (Abdomen): normal bowel sounds, soft, nontender, no hepatosplenomegaly Psychiatric: Orientation: alert, oriented to person and oriented to place; + not oriented to time Affect: + blunted affect Results & Data Vital Signs (Past 12 Hours) Vital Signs Temp Pulse Resp BP Pulse Ox 12/15/18 16:00 36.9 C 74 18 121/84 95 Laboratory Results Laboratory Results - last 24 hr 12/15/18 05:27 PT 19.1 H INR 2.0 H PG Care Time/CCT Total # of Minutes Spent Total Time Spent with Patient: Total time spent is greater than 50% in coordination of care (as documented) at patient's floor/unit and/or counseling patient: (1) A-fib Atrial fibrillation type: chronic Qualified Code(s): I48.2 - Chronic atrial fibrillation (2) Hypothyroid Hypothyroidism type: acquired Qualified Code(s): E03.9 - Hypothyroidism, unspecified (3) Altered mental status Altered mental status type: delirium Qualified Code(s): R41.0 - Disorientation, unspecified (4) Fall Encounter type: initial encounter Qualified Code(s): W19.XXXA - Unspecified fall, initial encounter
[2018-12-15] MEDS: ASPIRIN 81 MG ECTAB PO SCH (21:06)
[2018-12-15] MEDS: DONEPEZIL HCL 5 MG TAB PO SCH (21:06)
[2018-12-15] MEDS: ATORVASTATIN 20 MG TAB PO SCH (21:07)
[2018-12-15] MEDS: CYANOCOBALAMIN 500 MCG TABLET (VITAMIN B-12) PO SCH (21:07)
[2018-12-15] MEDS: LEVOTHYROXINE SODIUM 50 MCG TABLET PO SCH (21:07)
[2018-12-16 05:49] LABS: Hemoglobin 14.8 g/dL (12.0-16.0); Mean Corpuscular Hgb Conc 34.4 g/dL (32-36); Mean Corpuscular Volume 91.7 fL (80-100); Mean Platelet Volume 9.8 fL (7.4-10.4); Platelet Count 209 K/uL (130-400); RDW Standard Deviation 49.4 fL (36.4-46.3); Red Blood Count 4.69 M/uL (4.2-5.4); White Blood Count 9.99 K/uL (4.8-10.8)
[2018-12-16 06:03] LABS: INR 2.1 (0.9-1.1); Prothrombin Time 20.8 Seconds (9.0-12.0)
[2018-12-16 06:24] LABS: Albumin Level 2.8 gm/dl (3.4-5.0); BUN Creatinine Ratio 18.9 (10-20); Calcium 9.5 mg/dl (8.5-10.1); Creatinine Clr Calc Pharmacy 52.7 ml/min; Est GFR (African American) 82.1; Est GFR (Non-African American) 70.8; Potassium 3.7 mmol/L (3.5-5.1)
[2018-12-16 06:27] LABS: Albumin Globulin Ratio 0.6 (0.9-2); Bilirubin,Total 0.6 mg/dl (0.2-1); Globulin 4.6 gm/dl (2.5-4.0); Total Protein 7.4 gm/dl (6.4-8.2)
[2018-12-16] MEDS: BIMATOPROST 0.01% OP SCH (09:37)
[2018-12-16] MEDS: DORZOLAMIDE/TIMOLOL 22.3/6.8MG/ML 10 ML BTL OPB SCH (09:37)
[2018-12-16] MEDS: DOCUSATE SODIUM/SENNA 50/8.6MG TAB PO SCH (09:37)
--- NOTE | 2018-12-16 10:17 | Infectious Disease Progress Nt ---
Date of Service December 16, 2018 Assessment & Plan (1) Endocarditis of mitral valve: continue Rocephin 2g IV daily, would give 6 weeks from first negative culture due to artificial valve. follow repeat cultures, negative to date. doubt she would be surgical candidate. ok for d/c when otherwise stable. will need weekly cbc, cmp, esr while on therapy. can follow with ID post d/c from hospital. Subjective pt seen in followup, for tentative d/c to snf. tolerating rocephin, picc placed yesterday. afebrile. no cp, sob, cough, no abd pain, eating well. no n/v/d. Repeat cutlures from 12/12 remain negative. wbc 9.9. Review of Systems Review of Systems: All systems reviewed & are unremarkable except as noted in HPI & below Physical Exam Constitutional: WD/WN, vitals as above Eyes: PERRL, conjunctivae normal, anicteric sclerae ENMT: external ear and nose normal, oropharynx normal Neck: normal visual inspection Respiratory: normal respiratory effort, lungs clear to auscultation Cardiovascular: RRR, no murmur, no edema Gastrointestinal (Abdomen): normal bowel sounds, soft, nontender, no hepatosplenomegaly Musculoskeletal: no cyanosis or clubbing, extremities motor strength 5/5 Skin: no rashes, warm and dry Psychiatric: A+Ox3, euthymic affect Results & Data Vital Signs (Past 12 Hours) Vital Signs Temp Pulse Resp BP BP Pulse Ox 12/16/18 07:24 36.2 C L 75 20 130/84 96 12/15/18 23:05 37.1 C 76 18 115/78 97 Laboratory Results Microbiology 12/12/18 Unknown Urine,Clean Catch Urine Culture - Final Corynebacterium urealyticum 12/12/18 10:30 Blood Aerobic Blood Culture - Preliminary No growth in Aerobic bottle after 48 hours. 12/12/18 10:30 Blood Anaerobic Blood Culture - Preliminary No growth in Anaerobic bottle after 48 hours. 12/12/18 10:23 Blood Aerobic Blood Culture - Preliminary No growth in Aerobic bottle after 48 hours. 12/12/18 10:23 Blood Anaerobic Blood Culture - Preliminary No growth in Anaerobic bottle after 48 hours. 12/11/18 14:56 Blood Aerobic Blood Culture - Final Alpha strep not S.pne/enteroco 12/11/18 14:56 Blood Anaerobic Blood Culture - Final Alpha strep not S.pne/enteroco 12/11/18 14:45 Blood Aerobic Blood Culture - Final Alpha strep not S.pne/enteroco 12/11/18 14:45 Blood Anaerobic Blood Culture - Final Alpha strep not S.pne/enteroco
[2018-12-16] MEDS: cefTRIAXone SODIUM 2,000 MG in DEXTROSE 5% 50 ML IV SCH (14:49)
--- NOTE | 2018-12-25 21:36 | Discharge Summary ---
Date of Service date of admission - December 11, 2018 date of discharge - December 16, 2018 Admission HPI Per Admitting Provider 83 y/o F who was brought to the ED by her daughter after being found on the floor in the bathroom. When asked, pt states she has no idea why she is in the ED. She states that she feels like her usual self. Pt takes donepezil at baseline for some minor memory issues. She follows with Dr. Key for this and is to have her yearly f/u with him next week. Pt was in her usual state of health until about 1 month ago. She and her daughter had planned a trip to [place] to visit a friend who lives there. Pt had been at her usual (walking around the block daily unassisted, driving, ambulating without issue, etc), but while they were at the airport in [place], she suddenly became very "feeble" and could hardly walk. She was also very disoriented, not knowing they were in an airport. She suggested they just "go back home on the way to [place]" and was making other statements that were not appropriate for the situation they were in. She was taken to a hospital in [place] and had testing done over several days. Daughter does not have any paperwork from this with her, but states the final dx was dehydration. She was also given potassium while admitted and was started on B12. At one point she was told that the pt had a UTI and was on abx, but then the next day was told that this was not the case and no further abx were given. Pt seemed to be feeling better, so they went to [place] at that time time for 2 weeks. Daughter states that while they were there, pt was no longer making nonsensical statements, but she was very fatigued. She required a wheelchair for tourist activities and was only able to do one activity a day, which was unlike her. She did not seem confused again until they were on the return flight home. She made several statements that were again not appropriate for the situation and she did not remember that they were on an airplane at one point. She also fell in the bathroom of the plane and daughter had to assist her out of the bathroom. Pt returned to [place] on Wednesday and slept for about 24 hours. She has continued to feel fatigued and disoriented but no specific complaints. Her appetite has been low. She was seen by an CLINICAL ESTHETICIAN at her PCP's office on Wednesday and was dx with dehydration based on labs. She gave a urine sample at that time and they were call yesterday stating that she has a UTI. She was started on Keflex last night. Pt denies urinary sx. Daughter woke up this morning and found pt lying on the bathroom floor. Pt has no memory of falling and could not tell her what happened. She could not get up on her own. There were no signs of trauma. They came to the ED at that point. She was seen by [facility] on Wednesday and her INR was elevated at 4.1. Her coumadin was held for this. Pt denies fever, SOB, chest pain, abd pain, n/v/c/d, LE swelling. Pt does have pain in her feet, but this is a chronic issue. Principal Diagnosis alpha strep mitral valve endocarditis Discharge Exam Constitutional + thin; no acute distress ENMT external ear and nose normal, oropharynx normal Respiratory normal respiratory effort, lungs clear to auscultation Cardiovascular Rate/Rhythm: regular rate and + irregularly irregular Heart Sounds: normal S1, normal S2 and + murmur (2/6 systolic LLSB) Vessels: posterior tibial pulses present and dorsalis pedis pulses present; no JVD Extremities: no edema Gastrointestinal (Abdomen) normal bowel sounds, soft, nontender, no hepatosplenomegaly Musculoskeletal no cyanosis or clubbing, extremities motor strength 5/5 Skin no rashes, warm and dry (no janeway lesions; no splinter hemorrhages) Psychiatric Orientation: alert, oriented to person and oriented to place; + not oriented to time Affect: + blunted affect Lymphatic no cervical lymphadenopathy Discharge Data Allergies Allergy/AdvReac Type Severity Reaction Status Date / Time No Known Allergies Allergy Unverified 12/11/18 11:32 Consultations 1. cardiology - Jayme Rosen MD 2. infectious disease - Valeri Timmons DO 3. PT, OT Procedures Performed PICC line placement - left arm Ordered Studies 1. CT abd/pelvis - IMPRESSION: 1. No acute traumatic findings within the abdomen or pelvis. 2. Prominence of the endometrium which may reflect endometrial thickening or fluid within the canal. 1.1 cm nodular enhancing focus along the right second endometrium with a few additional enhancing uterine lesions. These may reflect fibroids however the findings could be correlated with evidence for postmenopausal bleeding. If present, gynecologic consultation is recommended. 3. Cholelithiasis. 4. Stable dilatation of the proximal abdominal aorta. 2. CT cervical spine - no fracture. 3. CT head - no acute process. 4. MRI brain - IMPRESSION: 1. Motion degraded exam without acute intracranial abnormality identified. 2. Age-related involutional changes with findings suggestive of chronic microvascular ischemic disease. 3. Moderate bilateral mastoid effusions. 5. u/s gall bladder - IMPRESSION: 1. Cholelithiasis. No biliary ductal dilatation or significant evidence to suggest cholecystitis. 2. Subcentimeter hyperechogenic lesion in the right kidney. 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 Well-defined hypodense lesion was evident in this region on prior CT though its small size precluded evaluation for macroscopic fat. 3. 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 6. echocardiogram - * EF 50-55% * mild RV dysfunction * bioprosthetic MV * MV vegetation - 9mm in size Hospital Course (1) Endocarditis of mitral valve: Time course of dental work in early October, followed by development of illness 2-3 weeks later, and ongoing sickness since - coupled with blood cx's positive for alpha strep and echo findings of mitral valve vegetation - all concerning/consistent with MV endocarditis. Continue rocephin x 6 weeks via Left arm PICC. MRI brain w/o septic emboli. Will need cardiology and ID follow-up post-discharge. While on daily rocephin will need CBC, CMP, and ESR weekly for the next 6 weeks. (2) Septicemia: 2nd to MV endocarditis. Culprit pathogen - alpha strep. Repeat blood cultures during this stay were negative ensuring sterility. (3) Bacteremia: due to endocarditis. no skin source on exam. no pneumonia on cxr. urine cx from outpatient [facility] office was NEGATIVE. repeat urine cx from [facility] was negative. has gallstones on CT and ultrasound but no symptoms to suggest cholecystitis. repeat blood cx's were negative. will need 6-week course of IV rocephin for MV endocarditis. (4) Altered mental status: 2nd to METABOLIC ENCEPHALOPATHY FROM SEPTICEMIA/ENDOCARDITIS. IMPROVING. CT head noted to be normal. MRI BRAIN w/o septic emboli. Large ventricles and atrophy noted on MRI brain. Could easily have baseline mild cognitive impairment. If in 3-4 weeks there is still memory issues/cognitive impairment would advise neurology referral for formal neuropsych testing. (5) Hypothyroid: TSH wnl. cont synthroid. (6) Fall: in setting of generalized illness from bacteremia. PT, OT evals completed; both recommending rehab post-discharge. (7) Supratherapeutic INR: resolved resumed normal coumadin dosing discharge INR was 2.1. will need repeat INR in a few days post-discharge to ensure therapeutic range is being maintained in face of antibiotics. (8) H/O mitral valve replacement: bioprosthetic. replaced 15 years ago at per daughter. echo findings as noted. cardiology consultation performed; will need local cardiology follow-up to repeat the echo. they have requested previous echo from that hospital for comparison purposes. (9) A-fib: rates controlled while hospitalized. on chronic coumadin at home. INR 2.1 at discharge. (10) Abnormal LFTs: cause? no signs/symptoms of acute cholecystitis. reactive to endocarditis/bacteremia? RUQ u/s without liver lesions. both CT and u/s showed gallstones only. would repeat LFTs several days post-discharge to ensure they are improving. would also hold statin agent until LFTs have fully normalized. Total Time Total Time Spent Total Time Spent (In Minutes): 45 Total Time Includes: Examination of the Patient, Discharge Planning, Medication Reconciliation and Communication With Other Providers Discharge Plan Discharge Items Patient Disposition: Transfer [facility] Reason For Visit: altered mental status Discharge Diagnosis: 1. Strep bacteremia/septicemia due to mitral valve endocarditis. 2. altered mental status / confusion - improving. Discharge Goals: Diagnostic testing and Therapeutic intervention Activity: Resume your previous activity Non-emergency contact: Primary Care Provider, Specialist and [employer] Call non-emergency contact if: you have any medication questions, your symptoms worsen and your temperature is above 100.5 Follow-up/Referrals: Valeri Timmons DO [Physician] - (see infectious disease in 2 weeks for mitral valve endocarditis.) Merlin Rosen MD [Physician] - (see Dr Rosen in 3-4 weeks for mitral valve endocarditis ) Ben Gomez MD [Primary Care Provider] - (see within 1 week of discharge from [facility]) Diet: Regular Addtl Provider Instructions: From Wm Castro, hospitalist - You were treated for mitral valve endocarditis with IV antibiotics. At the beginning of your stay your blood cultures were positive for strep infection. This led to the heart ultrasound (echo) showing a "vegetation" on your mitral valve. A vegetation is a collection of bacteria on the valve. It is suspected that you may have seeded your blood with bacteria during dental work earlier this spring, which then led to the mitral valve endocarditis. Your repeat blood cultures are negative suggesting the bloodstream infection is resolved. You will need 6 weeks in total of IV antibiotics via your left arm PICC line. You have 37 days left of treatment. You will need follow-up with Dr Jayme Rosen from cardiology to re- evaluate the valve later on, Dr Valeri Timmons from infectious disease to follow the infection and your labs, and ultimately your family doctor. Recommendations - 1. rocephin 2 gm IV daily via LUE PICC line x 37 more days. 2. lactinex probiotics three times daily for 40 days. 3. CBC, CMP, and sed rate ONCE WEEKLY for the next 6 weeks; results to Dr Valeri Timmons, [facility] Infectious disease. First set of blood work can be on 12/19/18. 4. INR on day of discharge is 2.1. Repeat INR is recommended on 12/19/18 to ensure stability; INR goal 2-3. 5. Mrs De La Vega's LFTs have been mildly high during the stay. Please continue to hold her lipitor. If they persist she should be seen by a GI physician. Her liver ultrasound was normal. Follow-up - see separate section. Return to [facility] if - * you have persistent fevers over 100.5 degrees * your left arm becomes very swollen, tender, etc * you develop severe diarrhea * any other concerns Prescriptions: New ceftriaxone 2 gram recon soln 2 gm IV DAILY Qty: 37 RF: 0 Lactinex 1 million cell tablet,chewable 3 tab PO TID 40 Days Qty: 360 RF: 0 Continued aspirin [Ecotrin Low Strength] 81 mg tablet,delayed release (DR/EC) 81 mg PO QPM RF: 0 bimatoprost [Lumigan] 0.01 % drops 1 drops OP QAM RF: 0 donepezil [Aricept] 5 mg tablet 5 mg PO QPM RF: 0 levothyroxine 50 mcg capsule 50 mcg PO QPM RF: 0 multivitamin tablet 1 tab PO QPM RF: 0 calcium carbonate [Oyster Shell Calcium] 500 mg calcium (1,250 mg) tablet 500 mg PO QPM RF: 0 sennosides-docusate sodium [Senna Plus] 8.6-50 mg tablet 1 tab PO DAILY RF: 0 warfarin 5 mg tablet See Rx Instructions .ROUTE .COMPLEX RF: 0 cyanocobalamin (vitamin B-12) 1,000 mcg tablet 1,000 mcg PO QPM RF: 0 warfarin 2.5 mg Tablet See Rx Instructions .ROUTE .COMPLEX RF: 0 dorzolamide-timolol 22.3-6.8 mg/mL drops 1 drp OPB BID RF: 0 Changed acetaminophen 325 mg capsule 650 mg PO Q6H PRN (Reason: Pain) Qty: 60 RF: 0 Discontinued atorvastatin [Lipitor] 20 mg tablet 20 mg PO QPM RF: 0 Stand-Alone Forms: [facility] Discharge Orders: Discharge Order (Routine); Ordered 12/16/18 Ordered By: Wm Castro Skilled Items Patient informed of condition?: Yes DNR: No Discharge Level of Care: Skilled Communicable Disease: No Discharge Prognosis: Stable Admission Data Admit Date/Time: 12/11/18 14:39 Attending Provider: Wm Castro Admit Provider: June Ayala Primary Care Provider: Ben Gomez Other Providers: Merlin Rosen ; Valeri Timmons ; IRB Approved Study,Julio Service: Medical Other Interventions: Discharge Summary Assessment (RN) Last Done: 12/16/18 14:35 Pending Studies at Discharge: No DC Date/Time DO NOT enter until pt leaves facility: 12/16/18 15:30
== END 2018-12-16 15:30 | DRG 871 ==
LOC: ED 11:01 → SUATTDRO 14:39 → 2N 14:39
DX: Z95.2 Presence of prosthetic heart valve; G93.41 Metabolic encephalopathy; A41.89 Other specified sepsis; Z79.82 Long term (current) use of aspirin; I05.9 Rheumatic mitral valve disease, unspecified; Z79.899 Other long term (current) drug therapy; E53.8 Deficiency of other specified B group vitamins; I48.2 Chronic atrial fibrillation; E78.5 Hyperlipidemia, unspecified; E03.9 Hypothyroidism, unspecified; E87.6 Hypokalemia; Z79.01 Long term (current) use of anticoagulants; Z91.81 History of falling

== ENCOUNTER 2020-07-25 17:23 | Inpatient (IN) ==
[2020-07-25] MEDS ORDERED: PANTOprazole 80 MG in DEXTROSE 5% 100 ML IV STA (18:05)
[2020-07-25] MEDS ORDERED: SODIUM CHLORIDE 0.9% 500 ML IV SCH (18:15)
[2020-07-25 18:46] LABS: Basophils # (auto) 0.02 K/uL (0-0.2); Basophils % (auto) 0.3 %; Eosinophils # (auto) 0.02 K/uL (0-0.5); Eosinophils % (auto) 0.3 %; Hematocrit (blood only) 37.6 % (37-47); Hemoglobin 12.5 g/dL (12.0-16.0); Immature Granulocytes # (auto) 0.01 K/uL (0.00-0.02); Immature Granulocytes % (auto) 0.2 %; Lymphocytes # (auto) 0.96 K/uL (1.2-3.4); Lymphocytes % (auto) 15.6 %; Mean Corpuscular Hgb Conc 33.2 g/dL (32-36); Mean Corpuscular Volume 93.3 fL (80-100); Mean Platelet Volume 10.8 fL (7.4-10.4); Monocytes % (auto) 9.8 %; Neutrophils # (auto) 4.53 K/uL (1.4-6.5); Neutrophils % (auto) 73.8 %; Platelet Count 138 K/uL (130-400); RDW Coefficient of Variation 16.9 % (11.5-14.5); RDW Standard Deviation 57.6 fL (36.4-46.3); Red Blood Count 4.03 M/uL (4.2-5.4); White Blood Count 6.14 K/uL (4.8-10.8)
[2020-07-25 19:02] LABS: INR 3.2 (0.9-1.1); Partial Thromboplastin Ratio 1.3; Partial Thromboplastin Time 36.7 Seconds (21.0-31.0); Prothrombin Time 31.4 Seconds (9.0-12.0)
[2020-07-25 19:05] LABS: BUN Creatinine Ratio 24.4 (10-20); Calcium 8.7 mg/dl (8.5-10.1); Creatinine Clr Calc Pharmacy 48.8 ml/min; Est GFR (African American) 89.1; Est GFR (Non-African American) 76.9; Potassium 3.7 mmol/L (3.5-5.1)
[2020-07-25 19:10] LABS: Albumin Globulin Ratio 1.1 (0.9-2); Bilirubin,Total 1.7 mg/dl (0.2-1); Globulin 2.7 gm/dl (2.5-4.0); Total Protein 5.7 gm/dl (6.4-8.2); Troponin I 0.022 ng/ml (0-0.045)
[2020-07-25] MEDS ORDERED: PHYTONADIONE 2.5 MG in SODIUM CHLORIDE 0.9% 50 ML IV ONE (19:26)
[2020-07-25] MEDS ORDERED: SODIUM CHLORIDE 0.9% 1000ML 1,000 ML IV ONE (19:55)
[2020-07-25] MEDS ORDERED: METOPROLOL TARTRATE 1 MG/ML VIAL IV STA (19:55)
--- NOTE | 2020-07-25 20:00 | Emergency Department Note ---
Impression & Plan Bright red rectal bleeding, Atrial fibrillation with rapid ventricular response, Supratherapeutic international normalized ratio (INR) ED Provider Note Provider: Ryan Gordon MD DATE OF SERVICE:07/25/2020 CHIEF COMPLAINT: Rectal bleed HISTORY OF PRESENT ILLNESS: Patient is a 85-year-old female history of atrial fibrillation on Coumadin, bioprosthetic mitral valve, history of endocarditis, UTI, Alzheimer's, and thyroid dysfunction presenting from her living facility today via ambulance with report of rectal bleeding. Nursing staff evidently noted some rectal bleeding and blood clots in a bowel movement earlier this afternoon. She is on Coumadin. Also takes aspirin. Denies abdominal pain but states she is a little bit of rectal discomfort. Denies dizziness, lightheadedness, chest pain, or shortness of breath. Denies syncope or near syncope. Daughter is present and states the patient has reported little bit of rectal discomfort for several months. No fevers reported URI symptoms. Patient does not not drink alcohol or use significant NSAIDs by report. Patient denies again any abdominal or gastric discomfort or nausea or vomiting. REVIEW OF SYSTEMS: A total of 10 review of systems was obtained and negative except as stated above in the HPI. PAST MEDICAL HISTORY: As noted above MEDICATIONS: Reviewed home medication list SOCIAL HISTORY: Lives in [facility] facility, does not use alcohol PHYSICAL EXAM: GENERAL: alert and oriented in no acute distress on stretcher Head: normocephalic and atraumatic EYES: No injection, discharge or icterus. NECK: Trachea midline. LUNGS: Airway patent. No retractions. Breath sounds clear HEART: Irregular tachycardic rate and rhythm. No chest wall tenderness ABDOMEN: Soft and non-tender, without guarding or rebound. No hepatosplenomegaly or masses Rectal: With nurse bibliographic services specialist, rectal was completed in standard fashion with evidence of dark red blood from the rectum. No large hemorrhoid appreciated. SKIN: Acyanotic, warm, dry, without rashes EXTREMITIES: Without swelling, tenderness or deformity NEUROLOGICAL: No focal deficits. No aphasia. No facial droop or slurred speech. EK bpm atrial fibrillation throughout ventricular response. Occasional PVC. No acute ST segment elevation is noted with some slight inferior T wave changes noted. CONTINUOUS CARDIAC MONITORING: was ordered given her arrhythmia and showed a heart rate of 80s-120s bpm in atrial fibrillation with RVR Patient's laboratory studies and imaging reviewed. Differential includes GI bleed, diverticulitis, gastritis, ulcer, infection, dehydration, metabolic abnormality, hypo/hyperglycemia, electrolyte disturbance, anemia, hypoxia, cardiac sources, intracerebral event, toxicologic, neurologic, as well as other pathologies. IMPRESSION/MEDICAL DECISION MAKING: Patient presents onset today of some rectal bleeding while on Coumadin. Bright red blood on exam with nursing bibliographic services specialist today. Given initial dose of 80 mg IV Protonix although she does not have significant risk factors for upper GI bleed and in the final analysis lower suspicion this is upper GI bleed more of a lower bleed. Slightly supratherapeutic INR 3.2 likely contributing to bleeding today. Given a small IV dose of 2.5 mg of IV vitamin K as she is on this for A. fib and has a bioprosthetic not a mechanical mitral valve. Patient denies significant symptoms of weakness, shortness of breath, chest pain, syncope, near syncope, dizziness, or abdominal discomfort. Hemoglobin appears stable on initial lab here. Does experience some episodes of A. fib RVR while here and given a small dose of metoprolol here. Troponin detectable not abnormal and similar to previous. Blood pressure improved from just below 100 with a total of 2 L of IV fluid, one for us in the ER and one prior to arrival with EMS. Lactate is not elevated. Lower suspicion of sepsis or infection given the lack of leukocytosis, fever, and CT scan. CT scan without large active bleed noted but questions some fecal impaction and stercoral colitis. With nursing bibliographic services specialist and patient and daughter approval brief manual disimpaction removing approximate 4 cm in a standard fashion using generous amounts of lubricant. Brown and bloody stool was completed with some discomfort by the patient. I doubt acute ischemic bowel without lactate elevation and especially in light of the decompression after the disimpaction. Given the patient's anticoagulation status, tenuous cardiac picture with the A. fib, and ongoing bright red blood per rectum feel further observation the hospitalist warranted. The hospitalist was contacted. DIAGNOSIS: Rectal bleeding, A. fib RVR, supratherapeutic INR DISPOSITION: Hospitalist will evaluate Patient was agreeable with this plan. Daughter present and also agreed with this plan. Critical Care I have personally spent 33 minutes of critical care time in the direct management of this patient. This includes bedside care, interpretation of diagnostic studies, and testing, discussion with consultants, patient, and family members, and other required patient management activities. These 33 minutes is in excess of all separately billable procedures. Past Med/Surg History Medical History (Updated 07/25/20 @ 21:02 by Ryan Gordon M.D.) A-fib Bilateral leg pain Bronchitis Dementia Dizziness Encounter for monitoring coumadin therapy Endocarditis Streptococcus Herpes zoster Supratherapeutic INR Surgical History H/O mitral valve replacement Family History Denies family history of Myocardial infarction Stroke Social History Smoking Status: Former smoker Hx Alcohol Use: No Hx Substance Use: No Preferred Language: Romansh Communication Ability: Effective Beliefs That Will Affect Care: None Current Living Situation: Family Current Living Situation Comment: lives with daughter Feels Safe at Home: Yes Assistive Devices: Walker Allergies Allergies Allergy/AdvReac Type Severity Reaction Status Date / Time No Known Allergies Allergy Unverified 07/25/20 20:40 Home Meds Home Medications Medication Instructions Recorded Confirmed acetaminophen [Tylenol] 650 mg PO Q4 PRN 07/25/20 07/25/20 amoxicillin 2,000 mg PO UD 07/25/20 07/25/20 aspirin [Aspir-Low] 81 mg PO DAILY 07/25/20 07/25/20 atorvastatin [Lipitor] 20 mg PO HS 07/25/20 07/25/20 bimatoprost [Lumigan] 1 drp OPB HS 07/25/20 07/25/20 cyanocobalamin (vitamin B-12) 1,000 mcg PO DAILY 07/25/20 07/25/20 [Vitamin B-12] donepezil [Aricept] 10 mg PO QPM 07/25/20 07/25/20 dorzolamide-timolol 1 drp OPB BID 07/25/20 07/25/20 food supplemt, lactose-reduced 1 ea PO BID 07/25/20 07/25/20 [Boost] levothyroxine [Synthroid] 50 mcg PO QPM 07/25/20 07/25/20 multivitamin 1 tab PO DAILY 07/25/20 07/25/20 netarsudil [Rhopressa] 1 drp OPL DAILY 07/25/20 07/25/20 sennosides-docusate sodium 1 tab-cap PO UD 07/25/20 07/25/20 [Senna-S] warfarin 2 mg PO 5XWK 07/25/20 07/25/20 warfarin 2.5 mg PO 2XWK 07/25/20 07/25/20 Results & Data (ED) Vital Signs Vital Signs - 24 hr 07/25/20 17:31 07/25/20 19:24 07/25/20 20:07 Temperature 36.7 C Temperature Source Oral Pulse Rate 120 H 108 H Pulse Rate [Apical] 99 H Respiratory Rate 18 18 Respiratory Effort / Characteristics Non-Labored Respiratory Depth Normal Respiratory Pattern Regular Blood Pressure 105/68 113/90 Blood Pressure [Left Arm] 110/81 Blood Pressure Mean 80 Blood Pressure Mean [Left Arm] 90 Pulse Oximetry 100 98 Oxygen Delivery Method Room Air Sepsis Recent Fever Within 48 Hours No Sepsis New/Unexplained Change in Mental Status N/A Sepsis Action Taken by Nursing No Action Required Laboratory Data Result diagrams: 07/25/20 18:28 07/25/20 18:28 Lab Results 07/25/20 07/25/20 07/25/20 Range/Units 18:15 18:28 18:28 WBC 6.14 (4.8-10.8) K/uL RBC 4.03 L (4.2-5.4) M/uL Hgb 12.5 (12.0-16.0) g/dL Hct 37.6 (37-47) % MCV 93.3 (80-100) fL MCH 31.0 (25-34) pg MCHC 33.2 (32-36) g/dL RDW Std Deviation 57.6 H (36.4-46.3) fL RDW Coeff of Asa 16.9 H (11.5-14.5) % Plt Count 138 (130-400) K/uL MPV 10.8 H (7.4-10.4) fL Immature Gran % (Auto) 0.2 % Neut % (Auto) 73.8 % Lymph % (Auto) 15.6 % [place] % (Auto) 9.8 % Eos % (Auto) 0.3 % Baso % (Auto) 0.3 % Neut # (Auto) 4.53 (1.4-6.5) K/uL Lymph # (Auto) 0.96 L (1.2-3.4) K/uL [place] # (Auto) 0.60 H (0.11-0.59) K/uL Eos # (Auto) 0.02 (0-0.5) K/uL Baso # (Auto) 0.02 (0-0.2) K/uL Immature Gran # (Auto) 0.01 (0.00-0.02) K/uL PT (9.0-12.0) Seconds INR (0.9-1.1) APTT (21.0-31.0) Seconds PTT Ratio Sodium (136-145) mmol/L Potassium (3.5-5.1) mmol/L Chloride (98-107) mmol/L Carbon Dioxide (21-32) mmol/L Anion Gap (3-11) BUN (7-18) mg/dl Creatinine (0.6-1.2) mg/dl Est Cr Clr Drug Dosing ml/min Est GFR ( Amer) Est GFR (Non-Af Amer) BUN/Creatinine Ratio (10-20) Glucose (70-99) mg/dl Lactate 1.6 (0.4-2.0) mmol/L Calcium (8.5-10.1) mg/dl Magnesium (1.8-2.4) mg/dl Total Bilirubin (0.2-1) mg/dl AST (15-37) U/L ALT (12-78) U/L Alkaline Phosphatase (45-117) U/L Troponin I (0-0.045) ng/ml Total Protein (6.4-8.2) gm/dl Albumin (3.4-5.0) gm/dl Globulin (2.5-4.0) gm/dl Albumin/Globulin Ratio (0.9-2) POC Stool Occult Blood Positive A (Negative) COVID-19 Eval Order SARS-CoV-2, RNA, NAAT (NEGATIVE) Blood Type Antibody Screen 07/25/20 07/25/20 07/25/20 Range/Units 18:28 18:28 18:33 WBC (4.8-10.8) K/uL RBC (4.2-5.4) M/uL Hgb (12.0-16.0) g/dL Hct (37-47) % MCV (80-100) fL MCH (25-34) pg MCHC (32-36) g/dL RDW Std Deviation (36.4-46.3) fL RDW Coeff of Asa (11.5-14.5) % Plt Count (130-400) K/uL MPV (7.4-10.4) fL Immature Gran % (Auto) % Neut % (Auto) % Lymph % (Auto) % [place] % (Auto) % Eos % (Auto) % Baso % (Auto) % Neut # (Auto) (1.4-6.5) K/uL Lymph # (Auto) (1.2-3.4) K/uL [place] # (Auto) (0.11-0.59) K/uL Eos # (Auto) (0-0.5) K/uL Baso # (Auto) (0-0.2) K/uL Immature Gran # (Auto) (0.00-0.02) K/uL PT 31.4 H (9.0-12.0) Seconds INR 3.2 H (0.9-1.1) APTT 36.7 H (21.0-31.0) Seconds PTT Ratio 1.3 Sodium 144 (136-145) mmol/L Potassium 3.7 (3.5-5.1) mmol/L Chloride 115 H (98-107) mmol/L Carbon Dioxide 27 (21-32) mmol/L Anion Gap 2.0 L (3-11) BUN 18 (7-18) mg/dl Creatinine 0.72 (0.6-1.2) mg/dl Est Cr Clr Drug Dosing 48.8 ml/min Est GFR ( Amer) 89.1 Est GFR (Non-Af Amer) 76.9 BUN/Creatinine Ratio 24.4 H (10-20) Glucose 94 (70-99) mg/dl Lactate (0.4-2.0) mmol/L Calcium 8.7 (8.5-10.1) mg/dl Magnesium 2.0 (1.8-2.4) mg/dl Total Bilirubin 1.7 H (0.2-1) mg/dl AST 22 (15-37) U/L ALT 23 (12-78) U/L Alkaline Phosphatase 67 (45-117) U/L Troponin I 0.022 (0-0.045) ng/ml Total Protein 5.7 L (6.4-8.2) gm/dl Albumin 3.0 L (3.4-5.0) gm/dl Globulin 2.7 (2.5-4.0) gm/dl Albumin/Globulin Ratio 1.1 (0.9-2) POC Stool Occult Blood (Negative) COVID-19 Eval Order SARS-CoV-2, RNA, NAAT (NEGATIVE) Blood Type B Positive Antibody Screen NEGATIVE 07/25/20 07/25/20 Range/Units 20:05 20:05 WBC (4.8-10.8) K/uL RBC (4.2-5.4) M/uL Hgb (12.0-16.0) g/dL Hct (37-47) % MCV (80-100) fL MCH (25-34) pg MCHC (32-36) g/dL RDW Std Deviation (36.4-46.3) fL RDW Coeff of Asa (11.5-14.5) % Plt Count (130-400) K/uL MPV (7.4-10.4) fL Immature Gran % (Auto) % Neut % (Auto) % Lymph % (Auto) % [place] % (Auto) % Eos % (Auto) % Baso % (Auto) % Neut # (Auto) (1.4-6.5) K/uL Lymph # (Auto) (1.2-3.4) K/uL [place] # (Auto) (0.11-0.59) K/uL Eos # (Auto) (0-0.5) K/uL Baso # (Auto) (0-0.2) K/uL Immature Gran # (Auto) (0.00-0.02) K/uL PT (9.0-12.0) Seconds INR (0.9-1.1) APTT (21.0-31.0) Seconds PTT Ratio Sodium (136-145) mmol/L Potassium (3.5-5.1) mmol/L Chloride (98-107) mmol/L Carbon Dioxide (21-32) mmol/L Anion Gap (3-11) BUN (7-18) mg/dl Creatinine (0.6-1.2) mg/dl Est Cr Clr Drug Dosing ml/min Est GFR ( Amer) Est GFR (Non-Af Amer) BUN/Creatinine Ratio (10-20) Glucose (70-99) mg/dl Lactate (0.4-2.0) mmol/L Calcium (8.5-10.1) mg/dl Magnesium (1.8-2.4) mg/dl Total Bilirubin (0.2-1) mg/dl AST (15-37) U/L ALT (12-78) U/L Alkaline Phosphatase (45-117) U/L Troponin I (0-0.045) ng/ml Total Protein (6.4-8.2) gm/dl Albumin (3.4-5.0) gm/dl Globulin (2.5-4.0) gm/dl Albumin/Globulin Ratio (0.9-2) POC Stool Occult Blood (Negative) COVID-19 Eval Order Covid19 [facility] SARS-CoV-2, RNA, NAAT NEGATIVE (NEGATIVE) Blood Type Antibody Screen Administered Medications Discontinued Medications Sodium Chloride (Nss) 500 mls @ 999 mls/hr IV .Q31M SAMIRA Stop: 07/25/20 18:45 Last Admin: 07/25/20 18:40 Dose: Not Given Documented by: [id number] Pantoprazole Sodium 80 mg/ (Dextrose) 100 mls @ 400 mls/hr IV ONE STA Stop: 07/25/20 18:19 Last Infusion: 07/25/20 19:08 Dose: 0 mls/hr Documented by: [id number] Admin: 07/25/20 18:48 Dose: 400 mls/hr Documented by: [id number] Phytonadione 2.5 mg/ Sodium (Chloride) 50.25 mls @ 100.5 mls/hr IV ONE ONE Stop: 07/25/20 19:55 Last Infusion: 07/25/20 20:43 Dose: 0 mls/hr Documented by: [id number] Admin: 07/25/20 19:54 Dose: 100.5 mls/hr Documented by: [id number] Sodium Chloride (Nss 1000ml) 1,000 mls @ 999 mls/hr IV .Q1H1M ONE Stop: 07/25/20 20:55 Last Admin: 07/25/20 20:07 Dose: 999 mls/hr Documented by: [id number] Ioversol (Optiray 320 125ml) 120 ml IV ONCE ONE Stop: 07/25/20 20:27 Last Admin: 07/25/20 20:27 Dose: 120 ml Documented by: [id number] Metoprolol Tartrate (Metoprolol Tartrate 1 Mg/Ml Vial) 2.5 mg IV NOW STA Stop: 07/25/20 19:56 Last Admin: 07/25/20 20:07 Dose: 2.5 mg Documented by: [id number] Discharge Plan Visit Data Chief Complaint: GI Assessment Stated Complaint: RECTAL BLEED ED Provider: Ryan Gordon Discharge Problem: Bright red rectal bleeding, Atrial fibrillation with rapid ventricular response, Supratherapeutic international normalized ratio (INR) Patient Disposition: Being Evaluated by Hospitalist Forms Stand Alone Forms: [facility] Prescriptions Prescriptions: No Action multivitamin Tablet 1 tab PO DAILY RF: 0 atorvastatin [Lipitor] 20 mg tablet 20 mg PO HS RF: 0 donepezil [Aricept] 10 mg tablet 10 mg PO QPM RF: 0 sennosides-docusate sodium [Senna-S] 8.6-50 mg Tablet 1 tab-cap PO UD RF: 0 cyanocobalamin (vitamin B-12) [Vitamin B-12] 1,000 mcg Tablet 1,000 mcg PO DAILY RF: 0 aspirin [Aspir-Low] 81 mg Tablet,Delayed Release (Dr/Ec) 81 mg PO DAILY RF: 0 levothyroxine [Synthroid] 50 mcg tablet 50 mcg PO QPM RF: 0 dorzolamide-timolol 22.3-6.8 mg/mL drops 1 drp OPB BID RF: 0 Lumigan 0.01 % drops 1 drp OPB HS RF: 0 Boost 0.04 gram- 1 kcal/mL Liquid 1 ea PO BID RF: 0 Rhopressa 0.02 % drops 1 drp OPL DAILY RF: 0 amoxicillin 500 mg capsule 2,000 mg PO UD RF: 0 acetaminophen [Tylenol] 325 mg Tablet 650 mg PO Q4 PRN (Reason: Fever Or Pain) RF: 0 warfarin 2.5 mg tablet 2.5 mg PO 2XWK RF: 0 warfarin 2 mg tablet 2 mg PO 5XWK RF: 0 Referrals Referrals: Sandra [facility] [Primary Care Provider] -
[2020-07-25] MEDS ORDERED: OPTIRAY 320 125ml IV ONE (20:26)
--- NOTE | 2020-07-25 20:40 | CT Scan Report ---
CT angio abdomen pelvis w con CT DOSE: 307.93 mGy.cm CLINICAL HISTORY: Rectal bleed TECHNIQUE: CT angiography was performed in a dynamic helical fashion during intravenous administratio n of 120 cc of Optiray 320. MIP images were acquired. A dose lowering technique was utilized adherin g to the principles of ALARA. COMPARISON STUDY: CT scan dated 07/10/2020 FINDINGS: The heart is enlarged. There is basilar subpleural reticulation. No hepatic masses are visualized on this arterial phase study. There is cholelithiasis. No splenic masses are visualized. No pancreatic masses are visualized. There is mild bilateral adrenal gland thickening similar to the prior study. 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 There are no transition zones to indicate bowel obstruction. There is a large amount stool within the rectum which measures 8 cm transversely. There is mild recta l wall thickening and infiltration of the perirectal fat. This may indicate stercoral colitis. No pathologic pelvic masses are visualized in this arterial phase study. There is no pathologic adenopathy. 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 There is no evidence of hemodynamic significant renal artery s tenosis. There are 2 left renal arteries. r there is no evidence of abdominal aortic aneurysm. There is layering contrast within the abdominal aorta suggesting an element of diminished cardiac output. There is no evidence of iliac artery stenosis. No destructive skeletal lesions are visualized IMPRESSION: 1. Large amount stool within the rectal vault with associated rectal wall thickening and infiltration of the perirectal fat. The findings are concerning for stercoral colitis 2. No evidence of bowel obstruction. No evidence of free air 3. Cholelithiasis 4. 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 Electronically signed by: Brennan Naik M.D. 07/25/2020 8:38 PM
--- NOTE | 2020-07-25 23:18 | History & Physical Report ---
Date of Service July 25, 2020 Assessment & Plan (1) Bright red rectal bleeding: Mrs. De La Vega is an 85 yo woman with a PMHx of A-fib and a bioprosthetic mitral valve, on anticoagulation with Coumadin, who was admitted for evaluation of bright red blood per rectum. - suspect lower GI source. recommend no further protonix use at this time. - patient is hemodynamically stable. Hemoglobin stable. - CTA of abdomen and pelvis without evidence for large, active bleed - INR was supratherapeutic on admission at 3.2; this certainly increased her propensity to bleed. Patient was treated with antibiotic one week ago for UTI, although amoxicillin not typically associated with increased INR - hold Coumadin and aspirin at this time - serial H+H q4h. transfuse if Hgb < 7 - If bleeding persists, could consider DDAVP administration to reverse anti- platelet effects of ASA - GI consult placed - As for the differential diagnosis, could be secondary to a diverticular bleed, internal hemorrhoids, colon cancer, polyp, ischemic colitis. - Diverticular bleed/bleeding internal hemorrhoids suspected given brisk hematochezia observed by nursing staff. Although typically painless - patient's chronic rectal pain likely secondary to associated stercoral colitis/fecal impaction. - Colon cancer/poylp is possible given weight loss over past month reported by patient, however no large colonic mass was appreciated on CT scan of abdomen. More likely to present with asymptomatic anemia rather than brisk hematochezia . - Ischemic colitis is unlikley given lack of sudden onset abdominal pain reported by patient (although she was mildly tender on palpation). Lactate not elevated. 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 Current GI bleed is certainly not major - would recommend continue use of chronic anticoagulation upon hospital discharge (3) Supratherapeutic international normalized ratio (INR): - INR 3.2 on arrival - Goal INR is between 2-3 (mitral valve is bioprosthetic, not mechanical) - secondary to Coumadin use - will hold coumadin - given 2.5mg vit K in ED - recheck INR in am (4) Fecal retention: - CTA of abdomen and pelvis showing large amount of impacted stool in rectal vault, concerning for sterocoral colitis - s/p manual disimpaction in ED - suspect patient's description of "oatmeal like" stool that she has been passing everyday is a result of constipation overflow diarrhea - will hold off on starting a bowel regimen at this time (in the setting of suspect lower GI bleed), but would recommend titrating bowel regimen upon discharge to 1 soft BM per day (5) Hyperlipidemia: - continue home dose Atorvastain 20mg, daily (6) Hypothyroid: - patient is on 50mcg levothyroxine at home. will hold while NPO. Can consider using 25 mcg IV levothyroxine (7) Elevated bilirubin: - total bilirubin elevated to 1.7 - asymptomatic - LFTs normal - direct bili ordered for am to assess conjugated vs. 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 NSS at 115mls/hr. Dvt ppx: supratheraputic on coumadin Code: DNR/DNI; I discussed with patient and daughter at bedside History of Present Illness Primary Care Provider: [facility] Mrs. 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 Earlier today, Mrs. De La Vega had a bloody BM that was witnessed by nursing staff. She has complained of rectal pain for the past 4-6 weeks, although this is the first time she has had associated bleeding. She passes ~ 2 BMs per day - she describes their texture as "oatmeal like." She does take a daily Senna. She denies any dizziness, lightheadedness, chest pain, SOB, nausea/vomiting. No hematuria or recent nosebleeds. Dr. Goins previously managed her Coumadin, however since she has been at [facility], the physician there has taken over this duty. In addition to her Coumadin, Mrs. De La Vega is on a daily baby aspirin (due to her bioprosthetic heart valve). She denies any Etoh use. Of note, she was treated for a UTI a week ago with an antibiotic (she believes it was amoxicillin). Her urinary symptoms have resolved at this time. Mrs. De La Vega's daughter is present in the exam room - she is able to provide some history and additional details. She says about 1 month ago, the staff at [facility] expressed concerns about her having a low appetite and weight loss. Boost nutrition supplements were added to her diet. Mrs. De La Vega denies any abdominal pain after eating. She has had at least one lifetime colonoscopy, but she is unsure of exactly how long ago her most recent scope was - daughter estimates ~ 10 years. No history of inflammatory bowel disease. No history of coronary artery disease. On arrival to the ED, she was afebrile, HR was tachycardic at 112, BP 105/68, RR 19, satting 98% on room air. Her WBC was normal. Hgb normal at 12.5. Platelets normal at 138k/uL. INR elevated to 3.2. Cr normal at 0.72. Chloride elevated to 115, electrolytes otherwise normal. Lactate not elevated. T bili elevated to 1.7. Trop detectable at 0.022. Fecal Occult blood positive. COVID 19 negative. EKG showing A-Fib with RVR. 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 The ED provider manually disimpacted stool from her rectum, which resulted in a bloody BM. She was given vit K 2.5mg IV, protonix 80mg, IV, Metoprolol 2.5mg, IV, and 2 liters of normal saline. Allergies Allergy/AdvReac Type Severity Reaction Status Date / Time No Known Allergies Allergy Unverified 07/25/20 20:40 Home Medications Medication Instructions Recorded Confirmed Type acetaminophen [Tylenol] 650 mg PO Q4 PRN 07/25/20 07/25/20 History amoxicillin 2,000 mg PO UD 07/25/20 07/25/20 History aspirin [Aspir-Low] 81 mg PO DAILY 07/25/20 07/25/20 History atorvastatin [Lipitor] 20 mg PO HS 07/25/20 07/25/20 History bimatoprost [Lumigan] 1 drp OPB HS 07/25/20 07/25/20 History cyanocobalamin (vitamin B-12) 1,000 mcg PO DAILY 07/25/20 07/25/20 History [Vitamin B-12] donepezil [Aricept] 10 mg PO QPM 07/25/20 07/25/20 History dorzolamide-timolol 1 drp OPB BID 07/25/20 07/25/20 History food supplemt, lactose-reduced 1 ea PO BID 07/25/20 07/25/20 History [Boost] levothyroxine [Synthroid] 50 mcg PO QPM 07/25/20 07/25/20 History multivitamin 1 tab PO DAILY 07/25/20 07/25/20 History netarsudil [Rhopressa] 1 drp OPL DAILY 07/25/20 07/25/20 History sennosides-docusate sodium 1 tab-cap PO UD 07/25/20 07/25/20 History [Senna-S] warfarin 2 mg PO 5XWK 07/25/20 07/25/20 History warfarin 2.5 mg PO 2XWK 07/25/20 07/25/20 History Past Med/Surg History Medical History (Updated 07/26/20 @ 11:20 by June Polanco PA-C) A-fib Bilateral leg pain Bronchitis Dementia Dizziness Encounter for monitoring coumadin therapy Endocarditis Streptococcus Herpes zoster Supratherapeutic INR Surgical History H/O mitral valve replacement Family History Denies family history of Myocardial infarction Stroke Social History Smoking Status: Unknown if ever smoked Hx Alcohol Use: No Hx Substance Use: No Preferred Language: Uzbek Communication Ability: Effective 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 Required: No Beliefs That Will Affect Care: None marital status: Current Living Situation: Personal Care Facility Current Living Situation Comment: lives with daughter Feels Safe at Home: Yes Safety Concerns: Feels Safe At This Time Assistive Devices: Walker Review of Systems Ear, Nose, Mouth, Throat: no dizziness Respiratory: no hemoptysis Cardiovascular: no chest pain, no lightheadedness and no syncope Gastrointestinal: + abdominal pain (rectal pain ), + diarrhea/loose stools and + blood in stools Genitourinary: no hematuria Physical Exam Constitutional: + thin, + frail appearing and cooperative; no acute distress Eyes: + anicteric sclerae ENMT: external ear and nose normal, oropharynx normal Neck: normal visual inspection and trachea midline Respiratory: normal respiratory effort; no respiratory distress and no cough Auscultation: + wheezes (on expiration, RLL); no crackles, no rales and no pleural rub Cardiovascular: Rate/Rhythm: + tachycardic and + irregularly irregular Heart Sounds: normal S1, normal S2 and + murmur (systolic ejection ) Extremities: no pedal edema Gastrointestinal (Abdomen): Inspection/Auscultation: abdomen normal to inspection and normal bowel sounds; abdomen not distended Percussion/Palpation: + abdomen tender (suprapubic region ) and abdomen soft; no guarding and no hepatosplenomegaly Skin: no rashes, warm and dry Neurologic: moves all extremities Psychiatric: A+Ox3, euthymic affect Results & Data Results & Data ([facility]) Vital Signs (Past 12 Hours) Vital Signs Temp Pulse Pulse Resp BP BP Pulse Ox 07/25/20 22:01 93 H 19 99 07/25/20 22:00 98 H 23 114/83 96 07/25/20 21:50 77 97 07/25/20 21:44 103 H 07/25/20 21:20 93 H 97 07/25/20 21:10 90 23 95 07/25/20 21:01 88 22 96 07/25/20 21:00 88 17 105/79 99 07/25/20 20:50 96 H 24 07/25/20 20:40 78 18 91 07/25/20 20:31 67 16 07/25/20 20:30 80 118/89 07/25/20 20:29 77 24 07/25/20 20:10 108 H 15 99 07/25/20 20:07 108 H 113/90 07/25/20 20:01 109 H 19 98 07/25/20 20:00 103 H 21 113/90 100 07/25/20 19:55 113 H 18 120/82 99 07/25/20 19:50 123 H 18 07/25/20 19:49 132 H 22 07/25/20 19:31 103 H 18 97 07/25/20 19:30 112 H 17 94/76 L 94 07/25/20 19:24 99 H 18 110/81 98 07/25/20 19:20 101 H 19 98 07/25/20 19:10 112 H 24 95 07/25/20 19:01 95 H 17 98 07/25/20 19:00 120 H 21 110/81 91 07/25/20 18:50 116 H 100 07/25/20 18:47 96 07/25/20 18:30 109 H 98 07/25/20 18:20 124 H 20 07/25/20 18:10 104 H 99 07/25/20 18:01 97 H 22 99 07/25/20 18:00 103 H 23 100/79 98 07/25/20 17:31 36.7 C 120 H 18 105/68 100 Supervising Physician Co-Signing Physician Notes Attending addendum: I have physically seen this patient, have supervised the medical residents activities, and agree with the H&P unless as otherwise noted. Assessment and Plan: Bright red blood per rectum/stercoral colitis- NPO Holding warfarin Did receive vitamin K 2.5 mg p.o. from the ED Repeat INR in a.m. H&H every 4 hours Consult gastroenterology Atrial fibrillation with RVR- As above holding warfarin. Hold aspirin. Lopressor 2.5 mg IV every 4 hours as needed heart rate greater than 110 Glaucoma- Continue usual eyedrops Dementia- Hold donepezil for now Remaining orders and notations as noted Resident Activity Tracking Resident Involvement: Resident Care Provided Care Provided: Adult Hospital Medicine (1) Hypothyroid Hypothyroidism type: acquired Qualified Code(s): E03.9 - Hypothyroidism, unspecified
[2020-07-25] MEDS ORDERED: ACETAMINOPHEN 1,000 MG/100 ML VIAL IV PRN (23:48)
[2020-07-25] MEDS ORDERED: METOPROLOL TARTRATE 1 MG/ML VIAL IV PRN (23:48)
[2020-07-25] MEDS ORDERED: ONDANSETRON INJ 2 MG/ML 2 ML VIAL IV PRN (23:48)
[2020-07-26] MEDS: SODIUM CHLORIDE 0.9% 1000ML 1,000 ML IV SCH ×2 (00:47→08:37)
[2020-07-26 02:31] LABS: Hematocrit (blood only) 38.6 % (37-47); Hemoglobin 12.3 g/dL (12.0-16.0)
[2020-07-26] MEDS ORDERED: LEVOTHYROXINE SODIUM 50 MCG TABLET PO SCH (06:30)
[2020-07-26 06:48] LABS: Hematocrit (blood only) 35.3 % (37-47); Hemoglobin 11.4 g/dL (12.0-16.0)
[2020-07-26 06:57] LABS: INR 1.8 (0.9-1.1); Prothrombin Time 18.5 Seconds (9.0-12.0)
[2020-07-26 07:19] LABS: BUN Creatinine Ratio 23.9 (10-20); Creatinine Clr Calc Pharmacy 50.6 ml/min; Est GFR (African American) 92.6; Est GFR (Non-African American) 79.9; Potassium 3.4 mmol/L (3.5-5.1)
[2020-07-26 07:24] LABS: Bilirubin Direct 0.5 mg/dl (0-0.2); Troponin I 0.016 ng/ml (0-0.045)
[2020-07-26] MEDS ORDERED: SODIUM CHLORIDE 0.9% 1000ML 500 ML IV ONE (08:28)
[2020-07-26] MEDS: DORZOLAMIDE/TIMOLOL 22.3/6.8MG/ML 10 ML BTL OPB SCH ×2 (08:38→21:15)
--- NOTE | 2020-07-26 09:50 | Gastrointestinal Consultation ---
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 Given lack of melena, hematemesis, BUN rise, upper GI source felt not to be the case. Suspect underlying stercoral ulcer leading to the rectal bleeding. Other considerations include diverticular bleeding, hemorrhoidal, polyps, AVMs, malignancy. She does have a history of adenomatous colonic polyps as well and was due for screening colonoscopy in 2019 however pt now with dementia and residing in a living facility. Pt currently hemodynamically stable, abd soft. - Would recommend bowel regimen with daily Miralax - Continue supportive care with IVF - Hold Coumadin - Monitor GI output - Monitor CBC, transfuse pRBC PRN - Plan for colonoscopy Wednesday; please have pt on clear liquids Wednesday, then start prep Wednesday Thank you for allowing us to participate in the care of this patient. Please call with any acute changes, questions or concerns. Please see addendum below with additional recommendation from my supervising physician. (2) Fecal retention: Supervising Physician Co-Signing Physician Notes I saw and evaluated the patient. She has a history of dementia and is not able to give much clinical history. We were consulted for evaluation of hematochezia. Review of her imaging study indicates that she has significant fecal burden and evidence of a stercoral ulcer. Physical examination Elderly female no obvious distress No abdominal tenderness noted Impression: Patient with fecal impaction likely causing a stercoral ulcer resulting in hematochezia. I would recommend starting MiraLAX twice daily and consideration of a bowel prep on Wednesday evening for possible colonoscopy on Wednesday should her bleeding persist. For the bowel preparation we would recommend use of Colyte with a liquid diet over the weekend Recommendations MiraLAX 17 g twice daily Colyte bowel preparation on Wednesday evening Please call with any questions or concerns over the weekend History of Present Illness Reason for Consultation: BRBPR Requesting Physician: Dr. Valero Attending Physician: Emanuel Watkins, DO History of Present Illness This is an 85 y/o female pt with PMHx atrial fibrillation on Coumadin, bioprosthetic mitral valve, history of endocarditis, Alzheimer's, and thyroid dysfunction who presented to the ER yesterday from her living facility today with nursing staff reporting bright red rectal bleeding with a BM earlier in the day. On arrival, labs with slightly supratherapeutic INR at 3.2, HGB 12.5, crit 38%, plt 138, BUN/cr WNL, lactate 1.6, COVID Neg. CTA of the A/P with large amount stool within the rectal vault and findings concerning for stercoral colitis, no obvious bowel obstruction or free air. In the ER she underwent manual disimpaction; stool was noted to be maroon with some sang blood. Pt was given a dose of Vit k and Coumadin was held; this AM INR 1.8. HGB 11.8, crit 36.4%; no rise in BUN. Pt had some sang blood/loose stool overnight. Nursing states she's not had hematemesis, melena. Given underlying cognitive function pt is not oriented and is not a good historian, therefore ROS is limited, but in general pt has no specific co mplaints; denies abd pain, vomiting, hematemesis, CP, SOB. Per ER notes, daughter repots pt has had some intermittent abd discomfort for a few months. No NSAID or ETOH use. Colonoscopy 2013: The examined portion of the ileum was normal. - One 5 mm adenomatous polyp in the cecum. Resected and retrieved. - Two 2 to 3 mm adenomatous polyps in the ascending colon. Resected and retrieved. - The examination was otherwise normal. - The distal rectum and anal verge are normal on retroflexion view. Repeat 5 years Allergies Allergy/AdvReac Type Severity Reaction Status Date / Time No Known Allergies Allergy Unverified 07/25/20 20:40 Home Medications Medication Instructions Recorded Confirmed Type acetaminophen [Tylenol] 650 mg PO Q4 PRN 07/25/20 07/25/20 History amoxicillin 2,000 mg PO UD 07/25/20 07/25/20 History aspirin [Aspir-Low] 81 mg PO DAILY 07/25/20 07/25/20 History atorvastatin [Lipitor] 20 mg PO HS 07/25/20 07/25/20 History bimatoprost [Lumigan] 1 drp OPB HS 07/25/20 07/25/20 History cyanocobalamin (vitamin B-12) 1,000 mcg PO DAILY 07/25/20 07/25/20 History [Vitamin B-12] donepezil [Aricept] 10 mg PO QPM 07/25/20 07/25/20 History dorzolamide-timolol 1 drp OPB BID 07/25/20 07/25/20 History food supplemt, lactose-reduced 1 ea PO BID 07/25/20 07/25/20 History [Boost] levothyroxine [Synthroid] 50 mcg PO QPM 07/25/20 07/25/20 History multivitamin 1 tab PO DAILY 07/25/20 07/25/20 History netarsudil [Rhopressa] 1 drp OPL DAILY 07/25/20 07/25/20 History sennosides-docusate sodium 1 tab-cap PO UD 07/25/20 07/25/20 History [Senna-S] warfarin 2 mg PO 5XWK 07/25/20 07/25/20 History warfarin 2.5 mg PO 2XWK 07/25/20 07/25/20 History Patient History Medical History (Updated 07/26/20 @ 11:20 by June Polanco PA-C) A-fib Bilateral leg pain Bronchitis Dementia Dizziness Encounter for monitoring coumadin therapy Endocarditis Streptococcus Herpes zoster Supratherapeutic INR Surgical History H/O mitral valve replacement Family History Denies family history of Myocardial infarction Stroke Social History Smoking Status: Unknown if ever smoked Hx Alcohol Use: No Hx Substance Use: No Preferred Language: Latvian Communication Ability: Effective Application Processor Required: No Beliefs That Will Affect Care: None Current Living Situation: Personal Care Facility Current Living Situation Comment: lives with daughter Feels Safe at Home: Yes Safety Concerns: Feels Safe At This Time Assistive Devices: Walker Physical Exam Constitutional: + chronically ill, no acute distress Eyes: + anicteric sclerae Respiratory: normal respiratory effort, lungs clear to auscultation Cardiovascular: Rate/Rhythm: + irregularly irregular + systoilc murmur Gastrointestinal (Abdomen): Inspection/Auscultation: abdomen normal to inspection and normal bowel sounds; abdomen not distended Percussion/Palpation: abdomen soft; abdomen nontender small amt of stool present at anus is mushy, maroon colored; no active BRBPR, melena Skin: no rashes, warm and dry Psychiatric: Orientation: alert; + not oriented x 3 Results & Data ([facility]) Vital Signs (Past 12 Hours) Vital Signs Temp Pulse Pulse Resp BP BP Pulse Ox 07/26/20 07:48 36.5 C 96 H 18 93/60 L 95 07/26/20 04:06 36.4 C L 107 H 18 130/81 98 07/26/20 03:25 102 H 07/25/20 23:53 36.0 C L 107 H 18 124/85 96 07/25/20 23:13 98 H 18 107/77 100 07/25/20 22:01 93 H 19 99 07/25/20 22:00 98 H 23 114/83 96 07/25/20 21:50 77 97 Laboratory Results 07/26/20 07/26/20 07/26/20 Range/Units 09:48 06:09 06:09 WBC (4.8-10.8) K/uL RBC (4.2-5.4) M/uL Hgb 11.8 L 11.4 L (12.0-16.0) g/dL Hct 36.4 L 35.3 L (37-47) % MCV (80-100) fL MCH (25-34) pg MCHC (32-36) g/dL RDW Std Deviation (36.4-46.3) fL RDW Coeff of Asa (11.5-14.5) % Plt Count (130-400) K/uL MPV (7.4-10.4) fL Immature Gran % (Auto) % Neut % (Auto) % Lymph % (Auto) % [place] % (Auto) % Eos % (Auto) % Baso % (Auto) % Neut # (Auto) (1.4-6.5) K/uL Lymph # (Auto) (1.2-3.4) K/uL [place] # (Auto) (0.11-0.59) K/uL Eos # (Auto) (0-0.5) K/uL Baso # (Auto) (0-0.2) K/uL Immature Gran # (Auto) (0.00-0.02) K/uL PT (9.0-12.0) Seconds INR (0.9-1.1) APTT (21.0-31.0) Seconds PTT Ratio Sodium 144 (136-145) mmol/L Potassium 3.4 L (3.5-5.1) mmol/L Chloride 113 H (98-107) mmol/L Carbon Dioxide 22 (21-32) mmol/L Anion Gap 9.0 (3-11) BUN 16 (7-18) mg/dl Creatinine 0.69 (0.6-1.2) mg/dl Est Cr Clr Drug Dosing 50.6 ml/min Est GFR ( Amer) 92.6 Est GFR (Non-Af Amer) 79.9 BUN/Creatinine Ratio 23.9 H (10-20) Glucose 99 (70-99) mg/dl Lactate (0.4-2.0) mmol/L Calcium 9.0 (8.5-10.1) mg/dl Magnesium (1.8-2.4) mg/dl Total Bilirubin (0.2-1) mg/dl Direct Bilirubin 0.5 H (0-0.2) mg/dl AST (15-37) U/L ALT (12-78) U/L Alkaline Phosphatase (45-117) U/L Troponin I 0.016 (0-0.045) ng/ml Total Protein (6.4-8.2) gm/dl Albumin (3.4-5.0) gm/dl Globulin (2.5-4.0) gm/dl Albumin/Globulin Ratio (0.9-2) Nasal Screen MRSA (PCR) (Negative) POC Stool Occult Blood (Negative) COVID-19 Eval Order SARS-CoV-2, RNA, NAAT (NEGATIVE) Blood Type Antibody Screen 07/26/20 07/26/20 07/26/20 Range/Units 06:09 02:17 00:51 WBC (4.8-10.8) K/uL RBC (4.2-5.4) M/uL Hgb 12.3 (12.0-16.0) g/dL Hct 38.6 (37-47) % MCV (80-100) fL MCH (25-34) pg MCHC (32-36) g/dL RDW Std Deviation (36.4-46.3) fL RDW Coeff of Asa (11.5-14.5) % Plt Count (130-400) K/uL MPV (7.4-10.4) fL Immature Gran % (Auto) % Neut % (Auto) % Lymph % (Auto) % [place] % (Auto) % Eos % (Auto) % Baso % (Auto) % Neut # (Auto) (1.4-6.5) K/uL Lymph # (Auto) (1.2-3.4) K/uL [place] # (Auto) (0.11-0.59) K/uL Eos # (Auto) (0-0.5) K/uL Baso # (Auto) (0-0.2) K/uL Immature Gran # (Auto) (0.00-0.02) K/uL PT 18.5 H (9.0-12.0) Seconds INR 1.8 H (0.9-1.1) APTT (21.0-31.0) Seconds PTT Ratio Sodium (136-145) mmol/L Potassium (3.5-5.1) mmol/L Chloride (98-107) mmol/L Carbon Dioxide (21-32) mmol/L Anion Gap (3-11) BUN (7-18) mg/dl Creatinine (0.6-1.2) mg/dl Est Cr Clr Drug Dosing ml/min Est GFR ( Amer) Est GFR (Non-Af Amer) BUN/Creatinine Ratio (10-20) Glucose (70-99) mg/dl Lactate (0.4-2.0) mmol/L Calcium (8.5-10.1) mg/dl Magnesium (1.8-2.4) mg/dl Total Bilirubin (0.2-1) mg/dl Direct Bilirubin (0-0.2) mg/dl AST (15-37) U/L ALT (12-78) U/L Alkaline Phosphatase (45-117) U/L Troponin I (0-0.045) ng/ml Total Protein (6.4-8.2) gm/dl Albumin (3.4-5.0) gm/dl Globulin (2.5-4.0) gm/dl Albumin/Globulin Ratio (0.9-2) Nasal Screen MRSA (PCR) Negative (Negative) POC Stool Occult Blood (Negative) COVID-19 Eval Order SARS-CoV-2, RNA, NAAT (NEGATIVE) Blood Type Antibody Screen 07/25/20 07/25/20 07/25/20 Range/Units 20:05 20:05 18:33 WBC (4.8-10.8) K/uL RBC (4.2-5.4) M/uL Hgb (12.0-16.0) g/dL Hct (37-47) % MCV (80-100) fL MCH (25-34) pg MCHC (32-36) g/dL RDW Std Deviation (36.4-46.3) fL RDW Coeff of Asa (11.5-14.5) % Plt Count (130-400) K/uL MPV (7.4-10.4) fL Immature Gran % (Auto) % Neut % (Auto) % Lymph % (Auto) % [place] % (Auto) % Eos % (Auto) % Baso % (Auto) % Neut # (Auto) (1.4-6.5) K/uL Lymph # (Auto) (1.2-3.4) K/uL [place] # (Auto) (0.11-0.59) K/uL Eos # (Auto) (0-0.5) K/uL Baso # (Auto) (0-0.2) K/uL Immature Gran # (Auto) (0.00-0.02) K/uL PT (9.0-12.0) Seconds INR (0.9-1.1) APTT (21.0-31.0) Seconds PTT Ratio Sodium (136-145) mmol/L Potassium (3.5-5.1) mmol/L Chloride (98-107) mmol/L Carbon Dioxide (21-32) mmol/L Anion Gap (3-11) BUN (7-18) mg/dl Creatinine (0.6-1.2) mg/dl Est Cr Clr Drug Dosing ml/min Est GFR ( Amer) Est GFR (Non-Af Amer) BUN/Creatinine Ratio (10-20) Glucose (70-99) mg/dl Lactate (0.4-2.0) mmol/L Calcium (8.5-10.1) mg/dl Magnesium (1.8-2.4) mg/dl Total Bilirubin (0.2-1) mg/dl Direct Bilirubin (0-0.2) mg/dl AST (15-37) U/L ALT (12-78) U/L Alkaline Phosphatase (45-117) U/L Troponin I (0-0.045) ng/ml Total Protein (6.4-8.2) gm/dl Albumin (3.4-5.0) gm/dl Globulin (2.5-4.0) gm/dl Albumin/Globulin Ratio (0.9-2) Nasal Screen MRSA (PCR) (Negative) POC Stool Occult Blood (Negative) COVID-19 Eval Order Covid19 IDNow [facility] SARS-CoV-2, RNA, NAAT NEGATIVE (NEGATIVE) Blood Type B Positive Antibody Screen NEGATIVE 07/25/20 07/25/20 07/25/20 Range/Units 18:28 18:28 18:28 WBC 6.14 (4.8-10.8) K/uL RBC 4.03 L (4.2-5.4) M/uL Hgb 12.5 (12.0-16.0) g/dL Hct 37.6 (37-47) % MCV 93.3 (80-100) fL MCH 31.0 (25-34) pg MCHC 33.2 (32-36) g/dL RDW Std Deviation 57.6 H (36.4-46.3) fL RDW Coeff of Asa 16.9 H (11.5-14.5) % Plt Count 138 (130-400) K/uL MPV 10.8 H (7.4-10.4) fL Immature Gran % (Auto) 0.2 % Neut % (Auto) 73.8 % Lymph % (Auto) 15.6 % [place] % (Auto) 9.8 % Eos % (Auto) 0.3 % Baso % (Auto) 0.3 % Neut # (Auto) 4.53 (1.4-6.5) K/uL Lymph # (Auto) 0.96 L (1.2-3.4) K/uL [place] # (Auto) 0.60 H (0.11-0.59) K/uL Eos # (Auto) 0.02 (0-0.5) K/uL Baso # (Auto) 0.02 (0-0.2) K/uL Immature Gran # (Auto) 0.01 (0.00-0.02) K/uL PT 31.4 H (9.0-12.0) Seconds INR 3.2 H (0.9-1.1) APTT 36.7 H (21.0-31.0) Seconds PTT Ratio 1.3 Sodium 144 (136-145) mmol/L Potassium 3.7 (3.5-5.1) mmol/L Chloride 115 H (98-107) mmol/L Carbon Dioxide 27 (21-32) mmol/L Anion Gap 2.0 L (3-11) BUN 18 (7-18) mg/dl Creatinine 0.72 (0.6-1.2) mg/dl Est Cr Clr Drug Dosing 48.8 ml/min Est GFR ( Amer) 89.1 Est GFR (Non-Af Amer) 76.9 BUN/Creatinine Ratio 24.4 H (10-20) Glucose 94 (70-99) mg/dl Lactate (0.4-2.0) mmol/L Calcium 8.7 (8.5-10.1) mg/dl Magnesium 2.0 (1.8-2.4) mg/dl Total Bilirubin 1.7 H (0.2-1) mg/dl Direct Bilirubin (0-0.2) mg/dl AST 22 (15-37) U/L ALT 23 (12-78) U/L Alkaline Phosphatase 67 (45-117) U/L Troponin I 0.022 (0-0.045) ng/ml Total Protein 5.7 L (6.4-8.2) gm/dl Albumin 3.0 L (3.4-5.0) gm/dl Globulin 2.7 (2.5-4.0) gm/dl Albumin/Globulin Ratio 1.1 (0.9-2) Nasal Screen MRSA (PCR) (Negative) POC Stool Occult Blood (Negative) COVID-19 Eval Order SARS-CoV-2, RNA, NAAT (NEGATIVE) Blood Type Antibody Screen 07/25/20 07/25/20 Range/Units 18:28 18:15 WBC (4.8-10.8) K/uL RBC (4.2-5.4) M/uL Hgb (12.0-16.0) g/dL Hct (37-47) % MCV (80-100) fL MCH (25-34) pg MCHC (32-36) g/dL RDW Std Deviation (36.4-46.3) fL RDW Coeff of Asa (11.5-14.5) % Plt Count (130-400) K/uL MPV (7.4-10.4) fL Immature Gran % (Auto) % Neut % (Auto) % Lymph % (Auto) % [place] % (Auto) % Eos % (Auto) % Baso % (Auto) % Neut # (Auto) (1.4-6.5) K/uL Lymph # (Auto) (1.2-3.4) K/uL [place] # (Auto) (0.11-0.59) K/uL Eos # (Auto) (0-0.5) K/uL Baso # (Auto) (0-0.2) K/uL Immature Gran # (Auto) (0.00-0.02) K/uL PT (9.0-12.0) Seconds INR (0.9-1.1) APTT (21.0-31.0) Seconds PTT Ratio Sodium (136-145) mmol/L Potassium (3.5-5.1) mmol/L Chloride (98-107) mmol/L Carbon Dioxide (21-32) mmol/L Anion Gap (3-11) BUN (7-18) mg/dl Creatinine (0.6-1.2) mg/dl Est Cr Clr Drug Dosing ml/min Est GFR ( Amer) Est GFR (Non-Af Amer) BUN/Creatinine Ratio (10-20) Glucose (70-99) mg/dl Lactate 1.6 (0.4-2.0) mmol/L Calcium (8.5-10.1) mg/dl Magnesium (1.8-2.4) mg/dl Total Bilirubin (0.2-1) mg/dl Direct Bilirubin (0-0.2) mg/dl AST (15-37) U/L ALT (12-78) U/L Alkaline Phosphatase (45-117) U/L Troponin I (0-0.045) ng/ml Total Protein (6.4-8.2) gm/dl Albumin (3.4-5.0) gm/dl Globulin (2.5-4.0) gm/dl Albumin/Globulin Ratio (0.9-2) Nasal Screen MRSA (PCR) (Negative) POC Stool Occult Blood Positive A (Negative) COVID-19 Eval Order SARS-CoV-2, RNA, NAAT (NEGATIVE) Blood Type Antibody Screen Diagnostic Findings CTA A/P: The heart is enlarged. There is basilar subpleural reticulation. No hepatic masses are visualized on this arterial phase study. There is cholelithiasis. No splenic masses are visualized. No pancreatic masses are visualized. There is mild bilateral adrenal gland thickening similar to the prior study. 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 There are no transition zones to indicate bowel obstruction. There is a large amount stool within the rectum which measures 8 cm transversely. There is mild rectal wall thickening and infiltration of the perirectal fat. This may indicate stercoral colitis. No pathologic pelvic masses are visualized in this arterial phase study. There is no pathologic adenopathy. 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 There is no evidence of hemodynamic significant renal artery stenosis. There are 2 left renal arteries. r there is no evidence of abdominal aortic aneurysm. There is layering contrast within the abdominal aorta suggesting an element of diminished cardiac output. There is no evidence of iliac artery stenosis. No destructive skeletal lesions are visualized IMPRESSION: 1. Large amount stool within the rectal vault with associated rectal wall thickening and infiltration of the perirectal fat. The findings are concerning for stercoral colitis 2. No evidence of bowel obstruction. No evidence of free air 3. Cholelithiasis 4. 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
[2020-07-26 10:00] LABS: Hematocrit (blood only) 36.4 % (37-47); Hemoglobin 11.8 g/dL (12.0-16.0)
--- NOTE | 2020-07-26 12:58 | Electrocardiogram Report ---
Test Reason : Blood Pressure : / mmHG Vent. Rate : 101 BPM Atrial Rate : 078 BPM P-R Int : 000 ms QRS Dur : 098 ms QT Int : 344 ms P-R-T Axes : 000 016 045 degrees QTc Int : 446 ms Atrial fibrillation with rapid ventricular response with premature ventricular or aberrantly conducte d complexes Low voltage QRS Cannot rule out Anteroseptal infarct (cited on or before 13-JAN-2014) Abnormal ECG When compared with ECG of 11-DEC-2018 11:21, Criteria for Inferior infarct are no longer Present T wave inversion now evident in Anterior leads Confirmed by Jayme Rosen ([id number]) on 07/26/2020 12:57:54 PM Referred By: [facility] Confirmed By:William Rosen
--- NOTE | 2020-07-26 13:42 | Hospitalist Progress Note ---
Date of Service July 26, 2020 Assessment & Plan (1) Bright red rectal bleeding: Mrs. De La Vega is an 85 yo woman with a PMHx of A-fib and a bioprosthetic mitral valve, on anticoagulation with Coumadin, who was admitted for evaluation of hematochezia -Appears to be lower GI source with hematochezia and no melena or history of such. - Given patient's fecal impaction and need for multiple manual disimpactions, as well as use of coumadin for anticoagulation this is most likely a stercoral u lcer, but certainly other lower GI sources such as Diverticular bleeding, mass, or AV malformation. -Patient's vital signs have remained WNL, hemoglobin 12.5 on admission 11.8 this afternoon so clearly not a major bleed at present. - GI consulted who agree this is likely secondary to patient's stool burden and anticoagulation use. - We will treat with miralax daily and bowel prep Wednesday for colonoscopy on Wednesday. - Will continue to hold home coumadin and ASA - Will recheck hemoglobin to q24 for now as patient appears stable and pay close attnetion to vitals and exam for any sign of worsening bleed. 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 (2) Atrial fibrillation with rapid ventricular response: - patient is anticoagulated with Coumadin for paroxysmal Afib -Rate controlled at present, prn lopressor for elevated heart rate as long as BP tolerates - [id number] score of 3, placing patient at moderate to high risk of stroke - HASBLED score of 2 placing patient at moderate risk for major GI bleed (2/100 patient years). - Despite current presentation, depending on patient and families goals of care benefits likely outweight the risks for continuing anticoagulation, though discussion should be had with family. (3) Supratherapeutic international normalized ratio (INR): - INR 3.2 on arrival - Goal INR is between 2-3 (4) Fecal retention: - CTA of abdomen and pelvis showing large amount of impacted stool in rectal vault, concerning for stercoral colitis - s/p manual disimpaction in ED Continue miralax BID bowel prep Wednesday (5) Hyperlipidemia: - continue home dose Atorvastain 20mg, daily (6) Hypothyroid: -Continue home 50 mcg levothyroxine daily (7) Elevated bilirubin: - total bilirubin elevated to 1.7 - asymptomatic - very slightly elevated direct bilirubin can recheck in outpatient setting if remains high can screen for infectious vs autoimmune causes (8) H/O mitral valve replacement: - bioprosthetic mitral valve placed after episode of mitral endocarditis - likely cause of murmur appreciated on exam - hold daily baby ASA 81mg in setting of acute GI bleed (9) Dementia: - continue home Aricept 10mg, qhs Dispo: MedSurg w tele F/E/N: Clear liquid diet Dvt ppx: SCD's Code: DNR/DNI; Admission and Anticipated Discharge Date Admission Date: July 25, 2020 Supervising Physician Co-Signing Physician Notes I also saw the patient with the resident physician and confirmed tavarez portions of the history and physical examination. I agree with the impression and plan as noted in the resident documentation. Upon our late afternoon exam, Winnie is lying supine in bed without any noted distress. She does have a bedside one-to-one. Exam 107/73, 100, 18, 36.7 C, 94% on room air. Awake and alert; she does have dementia at baseline. Heart is regular Abdomen soft and nontender Data Hemoglobin 11.8, white blood cell count 6.14. Potassium 3.4 AST 22, ALT 23. Stools positive for occult blood Impression and Plan Bright red blood per rectum Constipation, stercoral colitis Chronic anticoagulation secondary to mitral valve replacement Hold anticoagulation Bowel regimen Bowel prep on Wednesday Plan is for colonoscopy on Wednesday Subjective Winnie De La Vega tells me she is comfortable with no complaints, cannot remember why she's here. Oriented only to person and unable to provide any interval history. Review of Systems Review of Systems: Unobtainable due to cognitive status Physical Exam Physical Exam: Constitutional: Comfortable appearing 85 year old woman resting in bed pleasantly confused. Eyes: EOMMI bilaterally, anicteric sclerae, no conjunctival pallor ENMT: NAD Neck: supple, no JVD no masses Respiratory: Easily conversive no accessory muscle use, lung sounds vesicular in all lung van Cardiovascular: Regular rate and rhythm, no murmurs rubs skips or gallops peripheral pulses intact GI: Abdomen soft non tender, no masses or organomegaly, bowel sounds present and normal, anus with dried red blood and fecal matter Skin:warm dry well perfused Results & Data Results & Data ([facility]) Vital Signs (Past 12 Hours) Vital Signs Temp Pulse Pulse Resp BP Pulse Ox 07/26/20 11:24 36.4 C L 86 18 102/65 97 07/26/20 07:48 36.5 C 96 H 18 93/60 L 95 07/26/20 04:06 36.4 C L 107 H 18 130/81 98 07/26/20 03:25 102 H Resident Activity Tracking Resident Involvement: Resident Care Provided Care Provided: Adult Hospital Medicine (1) Fecal retention Constipation type: unspecified constipation type Qualified Code(s): K59.00 - Constipation, unspecified (2) Hypothyroid Hypothyroidism type: acquired Qualified Code(s): E03.9 - Hypothyroidism, unspecified
[2020-07-26] MEDS: POLYETHYLENE (MIRALAX) 17 GM PACK PO SCH ×2 (15:48→21:16)
[2020-07-26] MEDS: ATORVASTATIN 20 MG TAB PO SCH (21:14)
[2020-07-26] MEDS: DONEPEZIL HCL 10 MG TAB PO SCH (21:14)
[2020-07-26] MEDS: BIMATOPROST 0.01% OP SOLN 2.5 ML BTL OP SCH (21:15)
[2020-07-26] MEDS ORDERED: ACETAMINOPHEN 325 MG TAB PO PRN (23:16)
--- NOTE | 2020-07-27 00:07 | Billing Data ---
Date of Service July 27, 2020 Coding Level of Care Code 06506 Initial Inpt Care Lvl 3
[2020-07-27] MEDS: LEVOTHYROXINE SODIUM 50 MCG TABLET PO SCH (06:21)
[2020-07-27 07:16] LABS: Hematocrit (blood only) 34.2 % (37-47); Hemoglobin 11.1 g/dL (12.0-16.0); Mean Corpuscular Hemoglobin 30.4 pg (25-34); Mean Corpuscular Hgb Conc 32.5 g/dL (32-36); Mean Corpuscular Volume 93.7 fL (80-100); Mean Platelet Volume 10.7 fL (7.4-10.4); Platelet Count 134 K/uL (130-400); RDW Coefficient of Variation 17.1 % (11.5-14.5); RDW Standard Deviation 57.6 fL (36.4-46.3); Red Blood Count 3.65 M/uL (4.2-5.4); White Blood Count 4.42 K/uL (4.8-10.8)
[2020-07-27] MEDS: CYANOCOBALAMIN 500 MCG TABLET (VITAMIN B-12) PO SCH (08:32)
[2020-07-27] MEDS: DORZOLAMIDE/TIMOLOL 22.3/6.8MG/ML 10 ML BTL OPB SCH ×2 (08:32→20:24)
[2020-07-27] MEDS: POLYETHYLENE (MIRALAX) 17 GM PACK PO SCH ×2 (08:32→20:24)
--- NOTE | 2020-07-27 08:51 | Hospitalist Progress Note ---
Date of Service July 27, 2020 Assessment & Plan (1) Bright red rectal bleeding: Mrs. De La Vega is an 85 yo woman with a PMHx of A-fib and a bioprosthetic mitral valve, on anticoagulation with Coumadin, who was admitted for evaluation of hematochezia -Appears to be lower GI source with hematochezia and no melena or history of such. - Given patient's fecal impaction and need for multiple manual disimpactions, as well as use of coumadin for anticoagulation this is most likely a stercoral u lcer, but certainly other lower GI sources such as Diverticular bleeding, mass, or AV malformation. -Patient's vital signs have remained WNL, hemoglobin 12.5 on admission then repeat levels have been stable around 11. No tachycardia or hemodynamic compromise. No bloody BMs reported overnight. - GI consulted who agree this is likely secondary to patient's stool burden and anticoagulation use. - We will treat with miralax daily and bowel prep Wednesday for colonoscopy on Wednesday. - Will continue to hold home coumadin and ASA - Will recheck hemoglobin to q24 for now as patient appears stable and pay close attnetion to vitals and exam for any sign of worsening bleed. 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 (2) Atrial fibrillation with rapid ventricular response: - patient is anticoagulated with Coumadin for paroxysmal Afib -Rate controlled at present, prn lopressor for elevated heart rate as long as BP tolerates - [id number] score of 3, placing patient at moderate to high risk of stroke - HASBLED score of 2 placing patient at moderate risk for major GI bleed (2/100 patient years). - Despite current presentation, depending on patient and families goals of care benefits likely outweight the risks for continuing anticoagulation, though discussion should be had with family. (3) Supratherapeutic international normalized ratio (INR): - INR 3.2 on arrival - Goal INR is between 2-3 (4) Fecal retention: - CTA of abdomen and pelvis showing large amount of impacted stool in rectal vault, concerning for stercoral colitis - s/p manual disimpaction in ED Continue miralax BID bowel prep Asad night (5) Hyperlipidemia: - continue home dose Atorvastain 20mg, daily (6) Hypothyroid: -Continue home 50 mcg levothyroxine daily (7) Elevated bilirubin: - total bilirubin elevated to 1.7 - asymptomatic - very slightly elevated direct bilirubin can recheck in outpatient setting if remains high can screen for infectious vs autoimmune causes (8) H/O mitral valve replacement: - 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 I agree with the impression and plan as noted in the resident documentation. Upon our exam, Winnie is lying supine in bed without any noted distress. She has no complaints Exam 106/75, 80, 16, 36.5, 95% on room air Awake and alert. Heart is regular Abdomen soft and nontender Data Hemoglobin 11.1, essentially unchanged compared to yesterday Impression and Plan Bright red blood per rectum Constipation, stercoral colitis Chronic anticoagulation secondary to mitral valve replacement/Afib Continue to hold hold anticoagulation Bowel regimen Bowel prep on Wednesday Plan is for colonoscopy on Wednesday Subjective Caveat: History Limited by Dementia. Winnie is pleasant this morning, no acute events reported overnight; no acute complaints from Winnie, no abdominal pain, fever, chills, chest pain, shortness of breath. She denies any bloody BMs overnight, but she does not know why she is in the hospital. BM per staff this AM without reports of bloody appearance. Physical Exam Constitutional: WD/WN, vitals as above comfortable and + combative Eyes: PERRL, conjunctivae normal, anicteric sclerae ENMT: external ear and nose normal, oropharynx normal Neck: trachea midline Respiratory: normal respiratory effort, lungs clear to auscultation Cardiovascular: Rate/Rhythm: regular rate and regular rhythm Gastrointestinal (Abdomen): Percussion/Palpation: abdomen soft; abdomen nontender, no guarding and abdomen not rigid Musculoskeletal: Head/Neck/Chest: normocephalic and head atraumatic Skin: no rashes, warm and dry Neurologic: moves all extremities and awake Psychiatric: Orientation: alert, oriented to person, oriented to place (knew [place]; but not name of hospital) and cooperative; + not oriented to time (could not name year, but did see it written on wall and named it) Eye Contact: good eye contact Results & Data Results & Data ([facility]) Vital Signs (Past 12 Hours) Vital Signs Temp Pulse Pulse Resp BP Pulse Ox 07/27/20 08:09 36.8 C 77 18 109/76 97 07/27/20 00:36 89 07/26/20 21:23 36.5 C 86 18 110/78 99 Laboratory Results Laboratory Results - last 24 hr 07/26/20 07/27/20 09:48 06:39 WBC 4.42 L RBC 3.65 L Hgb 11.8 L 11.1 L Hct 36.4 L 34.2 L MCV 93.7 MCH 30.4 MCHC 32.5 RDW Std Deviation 57.6 H RDW Coeff of Asa 17.1 H Plt Count 134 MPV 10.7 H Medications Administered Atorvastatin Calcium (Atorvastatin 20 Mg Tab) 20 mg PO HS SAMIRA Stop: 08/25/20 20:59 Last Admin: 07/26/20 21:14 Dose: 20 mg Documented by: [id number] Bimatoprost (Bimatoprost 0.01% Op Soln 2.5 Ml Btl) 1 drops OP HS SAMIRA Stop: 08/25/20 20:59 Last Admin: 07/26/20 21:15 Dose: 1 drops Documented by: [id number] Cyanocobalamin (Cyanocobalamin 500 Mcg Tablet (Vitamin B-12)) 1,000 mcg PO DAILY SAMIRA Stop: 08/26/20 08:59 Last Admin: 07/27/20 08:32 Dose: 1,000 mcg Documented by: [id number] Donepezil HCl (Donepezil Hcl 10 Mg Tab) 10 mg PO QPM SAMIRA Stop: 08/25/20 20:59 Last Admin: 07/26/20 21:14 Dose: 10 mg Documented by: [id number] Dorzolamide/Timolol (Dorzolamide/Timolol 22.3/6.8mg/Ml 10 Ml Btl) 1 drops OPB BID SAMIRA Stop: 08/25/20 08:59 Last Admin: 07/27/20 08:32 Dose: 1 drops Documented by: [id number] Admin: 07/26/20 21:15 Dose: 1 drops Documented by: [id number] Admin: 07/26/20 08:38 Dose: 1 drops Documented by: [id number] Levothyroxine Sodium (Levothyroxine Sodium 50 Mcg Tablet) 50 mcg PO DAILYBB COUNTS INCLUDE 234 BEDS AT THE [facility] Stop: 08/26/20 06:29 Last Admin: 07/27/20 06:21 Dose: 50 mcg Documented by: [id number] Miscellaneous (Netarsudil [Rhopressa]: Order Awaiting Action) 1 ea N/A QS COUNTS INCLUDE 234 BEDS AT THE [facility] Stop: 08/25/20 07:59 Last Admin: 07/27/20 08:33 Dose: Not Given Documented by: [id number] Admin: 07/26/20 23:16 Dose: Not Given Documented by: [id number] Admin: 07/26/20 15:48 Dose: Not Given Documented by: [id number] Admin: 07/26/20 08:37 Dose: Not Given Documented by: [id number] Polyethylene Glycol (Polyethylene (Miralax) 17 Gm Pack) 17 gm PO BID COUNTS INCLUDE 234 BEDS AT THE [facility] Stop: 08/25/20 13:59 Last Admin: 07/27/20 08:32 Dose: 17 gm Documented by: [id number] Admin: 07/26/20 21:16 Dose: 17 gm Documented by: [id number] Admin: 07/26/20 15:48 Dose: 17 gm Documented by: [id number] Resident Activity Tracking Resident Involvement: Resident Care Provided Care Provided: Adult Hospital Medicine (1) Hypothyroid Hypothyroidism type: acquired Qualified Code(s): E03.9 - Hypothyroidism, unspecified (2) Fecal retention Constipation type: unspecified constipation type Qualified Code(s): K59.00 - Constipation, unspecified
[2020-07-27] MEDS: DONEPEZIL HCL 10 MG TAB PO SCH (20:20)
[2020-07-27] MEDS: ATORVASTATIN 20 MG TAB PO SCH (20:20)
[2020-07-27] MEDS: BIMATOPROST 0.01% OP SOLN 2.5 ML BTL OP SCH (20:24)
[2020-07-28] MEDS: LEVOTHYROXINE SODIUM 50 MCG TABLET PO SCH (05:50)
--- NOTE | 2020-07-28 06:53 | Hospitalist Progress Note ---
Date of Service July 28, 2020 Assessment & Plan (1) Bright red rectal bleeding: Mrs. De La Vega is an 85 yo woman with a PMHx of A-fib and a bioprosthetic mitral valve, on anticoagulation with Coumadin, who was admitted for evaluation of hematochezia -NPO at midnight for Colonoscopy tomorrow. Bowel prep per GI of [place] starting Wednesday evening. -Appears to be lower GI source with hematochezia and no melena or history of such. - Given patient's fecal impaction and need for multiple manual disimpactions, as well as use of coumadin for anticoagulation this is most likely a stercoral ulcer, but certainly other lower GI sources such as Diverticular bleeding, mass, or AV malformation. -Patient's vital signs have remained WNL, hemoglobin 12.5 on admission then repeat levels have been stable around 11, today 10.8. No tachycardia or hemodynamic compromise. No bloody BMs reported overnight. She reports one this morning but not notified of any. - GI consulted who agree this is likely secondary to patient's stool burden and anticoagulation use. - We will treat with miralax daily and bowel prep Wednesday night for colonoscopy on Wednesday. - Will continue to hold home coumadin and ASA - Will recheck hemoglobin to q24 for now as patient appears stable and pay close attnetion to vitals and exam for any sign of worsening bleed. 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 (2) Atrial fibrillation with rapid ventricular response: - patient is anticoagulated with Coumadin for paroxysmal Afib -Rate controlled at present, prn lopressor for elevated heart rate as long as BP tolerates - [id number] score of 3, placing patient at moderate to high risk of stroke - HASBLED score of 2 placing patient at moderate risk for major GI bleed (2/100 patient years). - Despite current presentation, depending on patient and families goals of care benefits likely outweight the risks for continuing anticoagulation, though discussion should be had with family. (3) Supratherapeutic international normalized ratio (INR): - INR 3.2 on arrival - Goal INR is between 2-3 (4) Fecal retention: - CTA of abdomen and pelvis showing large amount of impacted stool in rectal vault, concerning for stercoral colitis - s/p manual disimpaction in ED Continue miralax BID bowel prep Wednesday night (5) Hyperlipidemia: - continue home dose Atorvastain 20mg, daily (6) Hypothyroid: -Continue home 50 mcg levothyroxine daily (7) Elevated bilirubin: - total bilirubin elevated to 1.7 - asymptomatic - very slightly elevated direct bilirubin can recheck in outpatient setting if remains high can screen for infectious vs autoimmune causes (8) H/O mitral valve replacement: - 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 Dvt ppx: SCD's Code: DNR/DNI Admission and Anticipated Discharge Date Admission Date: July 25, 2020 Supervising Physician Co-Signing Physician Notes I also saw the patient with the resident physician and confirmed tavarez portions of the history and physical examination. I agree with the impression and plan as noted in the resident documentation. Upon our exam, Winnie is seated at the edge of her bed. She is conversational. She has no complaints. She notes having continued red stools but denies pain with defecation. Exam 106/83, 82, 18, 36.6, 99% on room air. Awake and alert. Heart is regular Abdomen soft and nontender Data Hemoglobin 10.8. -Stable Impression and Plan Bright red blood per rectum Constipation, stercoral colitis Chronic anticoagulation secondary to mitral valve replacement/Afib Continue to hold hold anticoagulation; check INR to assure reversal Bowel regimen Bowel prep Colonoscopy tomorrow Subjective Caveat: History Limited by Dementia. Winnie is pleasant this morning, no acute events reported overnight; no acute complaints from Winnie, no abdominal pain, fever, chills, chest pain, shortness of breath. She denies any bloody BMs overnight, but this morning she noted she had blood BM, but no notification by staff of bloody BMs. She still does not know why she is in the hospital. She is enjoying watching the snow from her window and is pleasant. Physical Exam Constitutional: WD/WN, vitals as above cooperative and comfortable Eyes: PERRL, conjunctivae normal, anicteric sclerae ENMT: external ear and nose normal, oropharynx normal Neck: trachea midline Respiratory: normal respiratory effort, lungs clear to auscultation Cardiovascular: Rate/Rhythm: regular rate and regular rhythm Gastrointestinal (Abdomen): Percussion/Palpation: abdomen soft; abdomen nontender, no guarding and abdomen not rigid Musculoskeletal: Head/Neck/Chest: normocephalic and head atraumatic Skin: no rashes, warm and dry Neurologic: moves all extremities and awake Psychiatric: Orientation: alert, oriented to person and cooperative Eye Contact: good eye contact Results & Data Results & Data ([facility]) Vital Signs (Past 12 Hours) Vital Signs Temp Pulse Pulse Resp BP BP Pulse Ox 07/28/20 02:29 36.5 C 95 H 18 107/74 96 07/27/20 23:04 86 07/27/20 22:15 36.5 C 82 18 101/73 93 07/27/20 19:23 36.6 C 89 18 109/82 93 Laboratory Results Laboratory Results - last 24 hr 07/28/20 06:54 WBC 4.06 L RBC 3.56 L Hgb 10.8 L Hct 33.4 L MCV 93.8 MCH 30.3 MCHC 32.3 RDW Std Deviation 58.3 H RDW Coeff of Asa 17.3 H Plt Count 146 MPV 10.5 H Medications Administered Atorvastatin Calcium (Atorvastatin 20 Mg Tab) 20 mg PO HS SAMIRA Stop: 08/25/20 20:59 Last Admin: 07/27/20 20:20 Dose: 20 mg Documented by: [id number] Admin: 07/26/20 21:14 Dose: 20 mg Documented by: [id number] Bimatoprost (Bimatoprost 0.01% Op Soln 2.5 Ml Btl) 1 drops OP HS SAMIRA Stop: 08/25/20 20:59 Last Admin: 07/27/20 20:24 Dose: 1 drops Documented by: [id number] Admin: 07/26/20 21:15 Dose: 1 drops Documented by: [id number] Cyanocobalamin (Cyanocobalamin 500 Mcg Tablet (Vitamin B-12)) 1,000 mcg PO DAILY SAMIRA Stop: 08/26/20 08:59 Last Admin: 07/28/20 07:36 Dose: 1,000 mcg Documented by: [id number] Admin: 07/27/20 08:32 Dose: 1,000 mcg Documented by: [id number] Donepezil HCl (Donepezil Hcl 10 Mg Tab) 10 mg PO QPM SAMIRA Stop: 08/25/20 20:59 Last Admin: 07/27/20 20:20 Dose: 10 mg Documented by: [id number] Admin: 07/26/20 21:14 Dose: 10 mg Documented by: [id number] Dorzolamide/Timolol (Dorzolamide/Timolol 22.3/6.8mg/Ml 10 Ml Btl) 1 drops OPB BID SAMIRA Stop: 08/25/20 08:59 Last Admin: 07/28/20 07:37 Dose: 1 drops Documented by: [id number] Admin: 07/27/20 20:24 Dose: 1 drops Documented by: [id number] Admin: 07/27/20 08:32 Dose: 1 drops Documented by: [id number] Admin: 07/26/20 21:15 Dose: 1 drops Documented by: [id number] Admin: 07/26/20 08:38 Dose: 1 drops Documented by: [id number] Levothyroxine Sodium (Levothyroxine Sodium 50 Mcg Tablet) 50 mcg PO DAILYBB SAMIRA Stop: 08/26/20 06:29 Last Admin: 07/28/20 05:50 Dose: 50 mcg Documented by: [id number] Admin: 07/27/20 06:21 Dose: 50 mcg Documented by: [id number] Miscellaneous (Netarsudil [Rhopressa]: Order Awaiting Action) 1 ea N/A QS SAMIRA Stop: 08/25/20 07:59 Last Admin: 07/28/20 07:43 Dose: Not Given Documented by: [id number] Admin: 07/28/20 00:12 Dose: Not Given Documented by: [id number] Admin: 07/27/20 15:48 Dose: Not Given Documented by: [id number] Admin: 07/27/20 08:33 Dose: Not Given Documented by: [id number] Admin: 07/26/20 23:16 Dose: Not Given Documented by: [id number] Admin: 07/26/20 15:48 Dose: Not Given Documented by: [id number] Admin: 07/26/20 08:37 Dose: Not Given Documented by: [id number] Polyethylene Glycol (Polyethylene (Miralax) 17 Gm Pack) 17 gm PO BID SAMIRA Stop: 08/25/20 13:59 Last Admin: 07/28/20 07:33 Dose: 17 gm Documented by: [id number] Admin: 07/27/20 20:24 Dose: 17 gm Documented by: [id number] Admin: 07/27/20 08:32 Dose: 17 gm Documented by: [id number] Admin: 07/26/20 21:16 Dose: 17 gm Documented by: [id number] Admin: 07/26/20 15:48 Dose: 17 gm Documented by: [id number] Resident Activity Tracking Resident Involvement: Resident Care Provided Care Provided: Adult Hospital Medicine (1) Hypothyroid Hypothyroidism type: acquired Qualified Code(s): E03.9 - Hypothyroidism, unspecified (2) Fecal retention Constipation type: unspecified constipation type Qualified Code(s): K59.00 - Constipation, unspecified
[2020-07-28 07:16] LABS: Hematocrit (blood only) 33.4 % (37-47); Hemoglobin 10.8 g/dL (12.0-16.0); Mean Corpuscular Hemoglobin 30.3 pg (25-34); Mean Corpuscular Hgb Conc 32.3 g/dL (32-36); Mean Corpuscular Volume 93.8 fL (80-100); Mean Platelet Volume 10.5 fL (7.4-10.4); Platelet Count 146 K/uL (130-400); RDW Coefficient of Variation 17.3 % (11.5-14.5); RDW Standard Deviation 58.3 fL (36.4-46.3); Red Blood Count 3.56 M/uL (4.2-5.4); White Blood Count 4.06 K/uL (4.8-10.8)
[2020-07-28] MEDS: POLYETHYLENE (MIRALAX) 17 GM PACK PO SCH ×3 (07:33→22:15)
[2020-07-28] MEDS: CYANOCOBALAMIN 500 MCG TABLET (VITAMIN B-12) PO SCH (07:36)
[2020-07-28] MEDS: DORZOLAMIDE/TIMOLOL 22.3/6.8MG/ML 10 ML BTL OPB SCH ×2 (07:37→19:41)
[2020-07-28] MEDS ORDERED: LAVAGE SOLUTION 4000ML PO SCH (16:00)
[2020-07-28] MEDS: DONEPEZIL HCL 10 MG TAB PO SCH (19:40)
[2020-07-28] MEDS: BIMATOPROST 0.01% OP SOLN 2.5 ML BTL OP SCH (19:41)
[2020-07-28] MEDS: ATORVASTATIN 20 MG TAB PO SCH (19:41)
[2020-07-28] MEDS ORDERED: bisacodyL 5 MG TABEC PO ONE (21:19)
[2020-07-29] MEDS: LEVOTHYROXINE SODIUM 50 MCG TABLET PO SCH (05:36)
[2020-07-29] MEDS: POLYETHYLENE (MIRALAX) 17 GM PACK PO SCH ×3 (05:36→20:27)
--- NOTE | 2020-07-29 06:45 | Hospitalist Progress Note ---
Date of Service July 29, 2020 Assessment & Plan (1) Bright red rectal bleeding: Patient is an 85 year old woman with PMHx Atrial fibrillation and a bioprosthetic mitral valve, on anticoagulation with warfarin, who was admitted for evaluation of hematochezia noted on day of admission. At that time she was reported to have a bloody BM witnessed by nursing staff and had complained of rectal pain for 4-6 weeks prior. Bright Red Rectal Bleeding, likely secondary to Stercoral colitis/ulcer -History of significant fecal impactions and need for multiple manual disimpactions while on Coumadin -Other GI sources such as diverticular bleeding, mass, or AV malformation -GI Consulted -S/P colonoscopy on 07/29/20 which noted multiple diminutive poyps which were clipped and a clean based ulcer at the anal verge consistent with stercoral colitis. -Patient's H&H has been stable throughout stay without obvious signs of worsening bleed. -Will advance patients diet today -Will start patient with bowel regiment of Miralax and titrate up PRN for bowel movement every 1-2 days. Atrial Fibrillation -[id number] of 3 -Rate controlled, PRN Lopressor -Will restart Warfarin at home dosing today as no active bleed noted on colonoscopy. -INR goal 2-3 Fecal Retention -Noted on CTA on admission and s/p manual disimpaction -Miralax bowel regiment as above HLD -Continue home Atorvastatin 20mg qd -Resume home aspirin Hypothyroidism -Continue home Levothyroxine 50mcg qd Hyperbilirubinemia -Total bilirubin 1.7 on admission -Downtrending to 1.2 on 07/29/20 H/O Mitral valve replacement -Resume home warfarin Dementia -Continue home Aricept 10mg QHS Dispo: M/S Telemetry FEN: Regular diet DVT: Warfarin Code: DNR/DNI Admission and Anticipated Discharge Date Admission Date: July 25, 2020 Supervising Physician Co-Signing Physician Notes I personally examined the patient and verified all tavarez points of history and exam, discussed case, and agree with decision making with Dr Villagomez. seen post colo doing well eating well vitals noted nad heent nc at mmm breathing unlabored no accessory muscles good effort skin no rashes no pallor or icterus neuro no focal deficits BRBPR - stercoral colitis/ulcer - no significant blood loss. stable. hopefully home tomorrow. bowel regimen afib - can resume coumadin soon and follow Subjective Patient evaluated this AM. History somewhat limited due to patients dementia. Pleasant this AM and noting that she was feeling well. Did not note any bright red blood in her stool overnight during bowel prep, but states she "didn't really look." Currently denying any abdominal discomfort or pain. No fever, chills, SOB, chest pain. Review of Systems Constitutional: no fever, no chills and no fatigue Eyes: no photophobia and no worsening vision Ear, Nose, Mouth, Throat: no dizziness Respiratory: no cough, no chest congestion, no dyspnea, no dyspnea on exertion and no pain on inspiration Cardiovascular: no chest pain, no chest pain at rest, no radiating jaw, neck or arm pain, no dyspnea, no dyspnea on exertion, no lightheadedness, no edema and no calf pain Gastrointestinal: no abdominal pain, no nausea, no vomiting, no constipation and no diarrhea/loose stools Genitourinary: no dysuria and no hematuria Musculoskeletal: no muscle weakness Neurologic: no falls and no headache(s) Physical Exam Constitutional: WD/WN, vitals as above Eyes: PERRL, conjunctivae normal, anicteric sclerae ENMT: external ear and nose normal, oropharynx normal Respiratory: normal respiratory effort, lungs clear to auscultation Cardiovascular: Rate/Rhythm: + irregularly irregular Gastrointestinal (Abdomen): normal bowel sounds, soft, nontender, no hepatosplenomegaly Psychiatric: Orientation: alert and oriented to person Results & Data Results & Data ([facility]) Vital Signs (Past 12 Hours) Vital Signs Temp Pulse Pulse Resp BP BP Pulse Ox 07/29/20 03:46 36.4 C L 98 H 18 118/80 96 07/29/20 00:03 36.6 C 79 17 101/71 98 07/28/20 23:03 82 07/28/20 20:09 36.4 C L 85 18 112/80 Resident Activity Tracking Resident Involvement: Resident Care Provided Care Provided: Adult Hospital Medicine
[2020-07-29 07:31] LABS: Hematocrit (blood only) 35.3 % (37-47); Hemoglobin 11.6 g/dL (12.0-16.0); Mean Corpuscular Hemoglobin 30.6 pg (25-34); Mean Corpuscular Hgb Conc 32.9 g/dL (32-36); Mean Corpuscular Volume 93.1 fL (80-100); Mean Platelet Volume 10.4 fL (7.4-10.4); Platelet Count 160 K/uL (130-400); RDW Coefficient of Variation 17.5 % (11.5-14.5); RDW Standard Deviation 57.7 fL (36.4-46.3); Red Blood Count 3.79 M/uL (4.2-5.4); White Blood Count 6.01 K/uL (4.8-10.8)
[2020-07-29 07:45] LABS: INR 2.1 (0.9-1.1); Prothrombin Time 21.2 Seconds (9.0-12.0)
[2020-07-29 08:00] LABS: Albumin Level 2.9 gm/dl (3.4-5.0); BUN Creatinine Ratio 10.2 (10-20); Calcium 8.4 mg/dl (8.5-10.1); Est GFR (African American) 92.6; Est GFR (Non-African American) 79.9; Potassium 2.8 mmol/L (3.5-5.1)
[2020-07-29 08:03] LABS: Albumin Globulin Ratio 1.1 (0.9-2); Bilirubin,Total 1.2 mg/dl (0.2-1); Globulin 2.6 gm/dl (2.5-4.0); Total Protein 5.5 gm/dl (6.4-8.2)
[2020-07-29] MEDS: POTASSIUM CHLORIDE / WTR 10 MEQ/100 ML PLCT IV SCH ×8 (08:38→17:01)
[2020-07-29] MEDS: DORZOLAMIDE/TIMOLOL 22.3/6.8MG/ML 10 ML BTL OPB SCH ×2 (08:41→20:27)
--- NOTE | 2020-07-29 08:41 | Gastroenterology Progress Note ---
Date of Service July 29, 2020 Assessment & Plan (1) Bright red rectal bleedin85 y/o female with underlying Alzheimer's, a-fib, h/o bioprosthetic mitral valve replacement on Coumadin, admitted from living facility with report of BRBPR, and found to have large amt of stool in the rectal vault and findings associated with stercoral colitis prepped for colonoscopy this AM NPO Colonoscopy this AM appreciate elyte management per primary team as doing Attg add: I interviewed and examined pt, reviewed chart and labs. Pt with stable hgb and no further bleeding. Csocpy today. Admission and Anticipated Discharge Date Admission Date: July 25, 2020 Subjective Pt was seen and evaluated. No concerns this AM. Tolerated bowel prep. No abd pain, nausea/vomiting K is low this AM but replenishing now. No black/bloody stools reported with prep Review of Systems Constitutional: no fever, no chills and no fatigue Respiratory: no cough and no dyspnea Cardiovascular: no chest pain and no dyspnea Gastrointestinal: no abdominal pain, no nausea, no coffee ground emesis, no hematemesis and no melena Physical Exam Constitutional: no acute distress Neck: trachea midline Respiratory: normal respiratory effort; no respiratory distress Cardiovascular: Rate/Rhythm: regular rate Gastrointestinal (Abdomen): Percussion/Palpation: abdomen soft; abdomen nontender, no guarding and abdomen not rigid Skin: no rashes, warm and dry Results & Data ([facility]) Vital Signs (Past 12 Hours) Vital Signs Temp Pulse Pulse Resp BP BP Pulse Ox 07/29/20 07:38 36.3 C L 77 16 111/76 96 07/29/20 03:46 36.4 C L 98 H 18 118/80 96 07/29/20 00:03 36.6 C 79 17 101/71 98 07/28/20 23:03 82 Laboratory Results 07/29/20 07/29/20 07/29/20 Range/Units 07:09 07:09 07:09 WBC 6.01 (4.8-10.8) K/uL RBC 3.79 L (4.2-5.4) M/uL Hgb 11.6 L (12.0-16.0) g/dL Hct 35.3 L (37-47) % MCV 93.1 (80-100) fL MCH 30.6 (25-34) pg MCHC 32.9 (32-36) g/dL RDW Std Deviation 57.7 H (36.4-46.3) fL RDW Coeff of Asa 17.5 H (11.5-14.5) % Plt Count 160 (130-400) K/uL MPV 10.4 (7.4-10.4) fL PT 21.2 H (9.0-12.0) Seconds INR 2.1 H (0.9-1.1) Sodium 145 (136-145) mmol/L Potassium 2.8 L (3.5-5.1) mmol/L Chloride 112 H (98-107) mmol/L Carbon Dioxide 28 (21-32) mmol/L Anion Gap 5.0 (3-11) BUN 7 (7-18) mg/dl Creatinine 0.69 (0.6-1.2) mg/dl Est Cr Clr Drug Dosing 53.0 ml/min Est GFR ( Amer) 92.6 Est GFR (Non-Af Amer) 79.9 BUN/Creatinine Ratio 10.2 (10-20) Glucose 100 H (70-99) mg/dl Calcium 8.4 L (8.5-10.1) mg/dl Total Bilirubin 1.2 H (0.2-1) mg/dl AST 31 (15-37) U/L ALT 28 (12-78) U/L Alkaline Phosphatase 73 (45-117) U/L Total Protein 5.5 L (6.4-8.2) gm/dl Albumin 2.9 L (3.4-5.0) gm/dl Globulin 2.6 (2.5-4.0) gm/dl Albumin/Globulin Ratio 1.1 (0.9-2)
--- NOTE | 2020-07-29 11:44 | Anesthesiology Consultation ---
Date of Service July 29, 2020 Assessment & Plan Chart Review Chart Review: Acceptable Risk for Surgery and Patient NOT seen in Pre Admission Testing Consults Requested none ASA ASA4 Proposed Anesthesia Anesthesia Type: MAC Risk / Benefits Reviewed With: PT / POA / Parent / Guardian, Accepts Plan and Informed Consent Obtained Additional Comments: covid test negative History Surgery Operation Date: 07/29/20 16:00 Proposed Procedures p Colonoscopy Dr Rajput - Blank Rajput MD Height/Weight Height: 5 ft 7 in Weight: 55.3 kg Allergies Allergy/AdvReac Type Severity Reaction Status Date / Time No Known Allergies Allergy Unverified 07/25/20 20:40 Medications Home Medications Medication Instructions Recorded Confirmed Last Taken acetaminophen [Tylenol] 650 mg PO Q4 PRN 07/25/20 07/25/20 Unknown amoxicillin 2,000 mg PO UD 07/25/20 07/25/20 Unknown aspirin [Aspir-Low] 81 mg PO DAILY 07/25/20 07/25/20 07/24/20 21:00 atorvastatin [Lipitor] 20 mg PO HS 07/25/20 07/25/20 07/24/20 21:00 bimatoprost [Lumigan] 1 drp OPB HS 07/25/20 07/25/20 07/24/20 21:00 cyanocobalamin (vitamin B-12) 1,000 mcg PO DAILY 07/25/20 07/25/20 Unknown [Vitamin B-12] donepezil [Aricept] 10 mg PO QPM 07/25/20 07/25/20 07/24/20 21:00 dorzolamide-timolol 1 drp OPB BID 07/25/20 07/25/20 07/25/20 08:00 food supplemt, lactose-reduced 1 ea PO BID 07/25/20 07/25/20 07/25/20 08:00 [Boost] levothyroxine [Synthroid] 50 mcg PO QPM 07/25/20 07/25/20 07/24/20 21:00 multivitamin 1 tab PO DAILY 07/25/20 07/25/20 07/24/20 21:00 netarsudil [Rhopressa] 1 drp OPL DAILY 07/25/20 07/25/20 07/25/20 08:00 sennosides-docusate sodium 1 tab-cap PO UD 07/25/20 07/25/20 Unknown [Senna-S] warfarin 2 mg PO 5XWK 07/25/20 07/25/20 07/24/20 20:00 warfarin 2.5 mg PO 2XWK 07/25/20 07/25/20 07/24/20 20:00 Active Medications Generic Name Dose Route Start Last Admin Trade Name Freq PRN Reason Stop Dose Admin Atorvastatin Calcium 20 mg 07/26/20 21:00 07/28/20 19:41 Atorvastatin 20 Mg Tab PO 08/25/20 20:59 20 mg HS SAMIRA Administration Bimatoprost 1 drops 07/26/20 21:00 07/28/20 19:41 Bimatoprost 0.01% Op Soln 2.5 Ml Btl OP 08/25/20 20:59 1 drops HS SAMIRA Administration Cyanocobalamin 1,000 mcg 07/27/20 09:00 07/28/20 07:36 Cyanocobalamin 500 Mcg Tablet (Vitamin B-12) PO 08/26/20 08:59 1,000 mcg DAILY SAMIRA Administration Donepezil HCl 10 mg 07/26/20 21:00 07/28/20 19:40 Donepezil Hcl 10 Mg Tab PO 08/25/20 20:59 10 mg QPM SAMIRA Administration Dorzolamide/Timolol 1 drops 07/26/20 09:00 07/29/20 08:41 Dorzolamide/Timolol 22.3/6.8mg/Ml 10 Ml Btl OPB 08/25/20 08:59 1 drops BID SAMIRA Administration Potassium Chloride 10 meq in 100 mls @ 100 mls/hr 07/29/20 08:30 07/29/20 11:44 [employer] / Wtr IV 07/29/20 16:29 100 mls/hr Q1H SAMIRA Administration Levothyroxine Sodium 50 mcg 07/27/20 06:30 07/29/20 05:36 Levothyroxine Sodium 50 Mcg Tablet PO 08/26/20 06:29 50 mcg DAILYBB SAMIRA Administration Miscellaneous 1 ea 07/26/20 08:00 07/28/20 23:47 Netarsudil [Rhopressa]: Order Awaiting Action N/A 08/25/20 07:59 Not Given QS SAMIRA Polyethylene Glycol 17 gm 07/26/20 14:00 07/29/20 08:41 Polyethylene (Miralax) 17 Gm Pack PO 08/25/20 13:59 Not Given BID SAMIRA NPO Date Last Intake of Fluids: 07/29/20 Time Last Intake of Fluids: 07:00 Date Last Intake of Solids: 07/27/20 Last Intake of Solids Comment: pt unsure, clear liquid diet 07/27 Past Medical History Medical History A-fib Bilateral leg pain Bronchitis Dementia Dizziness Encounter for monitoring coumadin therapy Endocarditis Streptococcus Herpes zoster Supratherapeutic INR Exercise / Class Metabolic Activity III < 4 Walking/Shop/Light housework Past Family History Family History Denies family history of Myocardial infarction Stroke Past Surgical History Surgical History H/O mitral valve replacement Past Anesthesia History No Hx of Anesthesia Complications and No Family Hx of Anesthesia Complications History of PONV No Hx of PONV and No Hx of Motion Sickness Social History Smoking Status: Unknown if ever smoked Hx Alcohol Use: No Hx Substance Use: No substance use type: does not use Physical Exam Vital Signs Last Vital Signs Temp 36.3 C L 07/29/20 11:24 Pulse 81 07/29/20 11:24 Resp 16 07/29/20 11:24 BP 114/85 07/29/20 11:24 Pulse Ox 97 07/29/20 11:24 Constitutional + thin ENMT Mouth: no dentition abnormality Thyromental Distance: < 3.5 Finger Breadths Mallampati Class: II Neck normal visual inspection and trachea midline; neck extension not limited Respiratory normal respiratory effort Auscultation: lungs clear to auscultation bilaterally Cardiovascular Rate/Rhythm: + abnormal rate (afib) and + abnormal rhythm (afib) Heart Sounds: no murmur Vessels: no carotid bruit Musculoskeletal Spine: normal cervical ROM Extremities: extremities normal to inspection Neurologic moves all extremities Motor/Sensory: no sensory deficit Psychiatric Orientation: alert; + not oriented x 3 Testing Laboratory Results 07/29/20 07:09 07/29/20 07:09 PT 21.2 Seconds (9.0-12.0) H 07/29/20 07:09 INR 2.1 (0.9-1.1) H 07/29/20 07:09 APTT 36.7 Seconds (21.0-31.0) H 07/25/20 18:28 Blood Type B Positive 07/25/20 18:33 Antibody Screen NEGATIVE 07/25/20 18:33 Electrocardiogram Date: 07/25/20 Findings: + AFIB @ (at 101)
[2020-07-29] MEDS ORDERED: ATROPINE SULFATE 0.1 MG/ML 10ML SYR IV PRN (11:49)
[2020-07-29] MEDS ORDERED: ePHEDrine sulfate 50 MG/ML AMP IV PRN (11:49)
--- NOTE | 2020-07-29 11:50 | History & Physical Report ---
Date of Service July 29, 2020 Assessment & Plan Admission and Anticipated Discharge Date Admission Date: July 25, 2020 History of Present Illness Primary Care Provider: [facility] Pt with self limited rectal bleed on ac, CT imaging showed stercoral colitis CV: IRIR Resp: CTA ABd: soft A/P: Rectal bleed -- cscopy today. Allergies Allergy/AdvReac Type Severity Reaction Status Date / Time No Known Allergies Allergy Unverified 07/25/20 20:40 Home Medications Medication Instructions Recorded Confirmed Type acetaminophen [Tylenol] 650 mg PO Q4 PRN 07/25/20 07/25/20 History amoxicillin 2,000 mg PO UD 07/25/20 07/25/20 History aspirin [Aspir-Low] 81 mg PO DAILY 07/25/20 07/25/20 History atorvastatin [Lipitor] 20 mg PO HS 07/25/20 07/25/20 History bimatoprost [Lumigan] 1 drp OPB HS 07/25/20 07/25/20 History cyanocobalamin (vitamin B-12) 1,000 mcg PO DAILY 07/25/20 07/25/20 History [Vitamin B-12] donepezil [Aricept] 10 mg PO QPM 07/25/20 07/25/20 History dorzolamide-timolol 1 drp OPB BID 07/25/20 07/25/20 History food supplemt, lactose-reduced 1 ea PO BID 07/25/20 07/25/20 History [Boost] levothyroxine [Synthroid] 50 mcg PO QPM 07/25/20 07/25/20 History multivitamin 1 tab PO DAILY 07/25/20 07/25/20 History netarsudil [Rhopressa] 1 drp OPL DAILY 07/25/20 07/25/20 History sennosides-docusate sodium 1 tab-cap PO UD 07/25/20 07/25/20 History [Senna-S] warfarin 2 mg PO 5XWK 07/25/20 07/25/20 History warfarin 2.5 mg PO 2XWK 07/25/20 07/25/20 History Past Med/Surg History Medical History A-fib Bilateral leg pain Bronchitis Dementia Dizziness Encounter for monitoring coumadin therapy Endocarditis Streptococcus Herpes zoster Supratherapeutic INR Surgical History H/O mitral valve replacement Family History Denies family history of Myocardial infarction Stroke Social History Smoking Status: Unknown if ever smoked Hx Alcohol Use: No Hx Substance Use: No Preferred Language: Tajik Communication Ability: Effective [employer] Required: No Beliefs That Will Affect Care: None marital status: Current Living Situation: Personal Care Facility Current Living Situation Comment: lives with daughter Feels Safe at Home: Yes Safety Concerns: Feels Safe At This Time Assistive Devices: Walker Results & Data ([facility]) Vital Signs (Past 12 Hours) Vital Signs Temp Pulse Resp BP BP Pulse Ox 07/29/20 11:24 36.3 C L 81 16 114/85 97 07/29/20 07:38 36.3 C L 77 16 111/76 96 07/29/20 03:46 36.4 C L 98 H 18 118/80 96 07/29/20 00:03 36.6 C 79 17 101/71 98
[2020-07-29] MEDS ORDERED: ONDANSETRON INJ 2 MG/ML 2 ML VIAL ONE (12:04)
[2020-07-29] MEDS ORDERED: PROPOFOL IV EMULSION 10 MG/ML 20 ML VIAL IV ONE (12:04)
[2020-07-29] MEDS ORDERED: LIDOCAINE HCL 2% 2 ML VIAL/AMP(20MG/ML) INFIL ONE (12:04)
[2020-07-29] MEDS ORDERED: PHENYLEPHRINE HCL 10 MG/ML VIAL ONE (12:17)
--- NOTE | 2020-07-29 12:57 | GI REPORT ---
Patient Name: Winnie De La Vega Procedure Date: 07/29/2020 11:43 AM Date of : 1935 Admit Type: Inpatient Age: 85 Gender: Female Attending MD: Blank Rajput MD Procedure: Colonoscopy Providers: Blank Rajput MD Referring MD: State Manuela Rand Indications: Rectal bleeding Medicines: See the Anesthesia note for documentation of the administered medications Complications: No immediate complications. Estimated Blood Loss: Estimated blood loss: none. Procedure: Pre-Anesthesia Assessment: - ASA Grade Assessment: IV - A patient with severe systemic disease that is a constant threat to life. After I obtained informed consent, the scope was passed under direct vision. Throughout the procedure, the patient's blood pressure, pulse, and oxygen saturations were monitored continuously. The Colonoscope was introduced through the anus and advanced to the terminal ileum. The colonoscopy was performed without difficulty. The patient tolerated the procedure well. The quality of the bowel preparation was good. Findings: The perianal and digital rectal examinations were normal. Three sessile polyps were found in the transverse colon, ascending colon and cecum. The polyps were 1 to 3 mm in size. These polyps were removed with a cold snare. Resection and retrieval were complete. The transverse colon polyp site was clipped with a single clip. There was edema of the mucosa of the rectum. There was a clean based ulcer at the anal verge consistent with stercoral colitis. The colon was otherwise normal. Impression: Multiple diminutive polyps. Stercoral colitis. Recommendation: - Discharge patient to home. Bowel regimen. OK to resume anticoagulation. Blank Rajput M.D. Blank Rajput MD 07/29/2020 12:56:45 PM This report has been signed electronically. Note Initiated On: 07/29/2020 11:43 AM Number of Addenda: 0 I attest to the content of the Intraoperative Record and orders documented therein, exceptions below {[id number]}
--- NOTE | 2020-07-29 13:00 | Anesthesiology Progress Note ---
Date of Service July 29, 2020 Anesthesia Post Procedure Vital Signs Vital Signs: Temp Pulse Pulse Resp BP BP Pulse Ox 07/29/20 12:54 77 16 97/72 L 98 07/29/20 11:24 36.3 C L 81 16 114/85 97 07/29/20 07:38 36.3 C L 77 16 111/76 96 07/29/20 03:46 36.4 C L 98 H 18 118/80 96 07/29/20 00:03 36.6 C 79 17 101/71 98 07/28/20 23:03 82 07/28/20 20:09 36.4 C L 85 18 112/80 07/28/20 15:07 81 07/28/20 14:55 36.4 C L 89 16 111/77 97 Transfer of Care Handoff Completed per policy Notes Mental Status: alert / awake / arousable Patient Amnestic to Procedure: Yes Nausea / Vomiting: adequately controlled Pain: adequately controlled Airway Patency, RR, SpO2: stable & adequate BP & HR: stable & adequate Hydration State: stable & adequate Anesthetic Complications: no major complications apparent
[2020-07-29] MEDS: CYANOCOBALAMIN 500 MCG TABLET (VITAMIN B-12) PO SCH (14:04)
[2020-07-29] MEDS ORDERED: WARFARIN SOD 2 MG TAB PO SCH (17:00)
[2020-07-29 17:11] LABS: BUN Creatinine Ratio 10.7 (10-20); Calcium 8.5 mg/dl (8.5-10.1); Creatinine Clr Calc Pharmacy 64.1 ml/min; Est GFR (African American) 98.7; Est GFR (Non-African American) 85.1; Potassium 4.4 mmol/L (3.5-5.1)
--- NOTE | 2020-07-29 18:17 | Billing Data ---
Date of Service July 29, 2020 Coding Level of Care Code 92115 Subseq Hosp Care Lvl 2
[2020-07-29] MEDS: BIMATOPROST 0.01% OP SOLN 2.5 ML BTL OP SCH (20:27)
[2020-07-29] MEDS: DONEPEZIL HCL 10 MG TAB PO SCH (20:27)
[2020-07-29] MEDS: ATORVASTATIN 20 MG TAB PO SCH (20:27)
[2020-07-30] MEDS: LEVOTHYROXINE SODIUM 50 MCG TABLET PO SCH (05:56)
[2020-07-30 07:07] LABS: Basophils # (auto) 0.01 K/uL (0-0.2); Basophils % (auto) 0.1 %; Eosinophils # (auto) 0.03 K/uL (0-0.5); Eosinophils % (auto) 0.4 %; Hematocrit (blood only) 34.1 % (37-47); Hemoglobin 11.1 g/dL (12.0-16.0); Immature Granulocytes # (auto) 0.01 K/uL (0.00-0.02); Immature Granulocytes % (auto) 0.1 %; Lymphocytes % (auto) 14.6 %; Mean Corpuscular Hemoglobin 30.7 pg (25-34); Mean Corpuscular Hgb Conc 32.6 g/dL (32-36); Mean Corpuscular Volume 94.5 fL (80-100); Mean Platelet Volume 10.6 fL (7.4-10.4); Monocytes # (auto) 0.46 K/uL (0.11-0.59); Monocytes % (auto) 6.7 %; Neutrophils # (auto) 5.33 K/uL (1.4-6.5); Neutrophils % (auto) 78.1 %; Platelet Count 152 K/uL (130-400); RDW Coefficient of Variation 17.9 % (11.5-14.5); RDW Standard Deviation 60.1 fL (36.4-46.3); Red Blood Count 3.61 M/uL (4.2-5.4); White Blood Count 6.84 K/uL (4.8-10.8)
[2020-07-30 07:34] LABS: INR 2.1 (0.9-1.1); Prothrombin Time 21.1 Seconds (9.0-12.0)
[2020-07-30 07:36] LABS: BUN Creatinine Ratio 12.4 (10-20); Calcium 8.6 mg/dl (8.5-10.1); Creatinine Clr Calc Pharmacy 55.3 ml/min; Est GFR (African American) 92.6; Est GFR (Non-African American) 79.9; Potassium 3.9 mmol/L (3.5-5.1)
[2020-07-30] MEDS: DORZOLAMIDE/TIMOLOL 22.3/6.8MG/ML 10 ML BTL OPB SCH (07:46)
[2020-07-30] MEDS: CYANOCOBALAMIN 500 MCG TABLET (VITAMIN B-12) PO SCH (07:47)
[2020-07-30] MEDS: POLYETHYLENE (MIRALAX) 17 GM PACK PO SCH (07:47)
[2020-07-30] MEDS ORDERED: ASPIRIN 81 MG ECTAB PO SCH (09:00)
--- NOTE | 2020-07-30 11:30 | Discharge Summary ---
Date of Service July 30, 2020 Admission HPI Per Admitting Provider Mrs. 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 Earlier today, Mrs. De La Vega had a bloody BM that was witnessed by nursing staff. She has complained of rectal pain for the past 4-6 weeks, although this is the first time she has had associated bleeding. She passes ~ 2 BMs per day - she describes their texture as "oatmeal like." She does take a daily Senna. She denies any dizziness, lightheadedness, chest pain, SOB, nausea/vomiting. No hematuria or recent nosebleeds. Dr. Goins previously managed her Coumadin, however since she has been at [facility], the physician there has taken over this duty. In addition to her Coumadin, Mrs. De La Vega is on a daily baby aspirin (due to her bioprosthetic heart valve). She denies any Etoh use. Of note, she was treated for a UTI a week ago with an antibiotic (she believes it was amoxicillin). Her urinary symptoms have resolved at this time. Mrs. De La Vega's daughter is present in the exam room - she is able to provide some history and additional details. She says about 1 month ago, the staff at [facility] expressed concerns about her having a low appetite and weight loss. Boost nutrition supplements were added to her diet. Mrs. De La Vega denies any abdominal pain after eating. She has had at least one lifetime colonoscopy, but she is unsure of exactly how long ago her most recent scope was - daughter estimates ~ 10 years. No history of inflammatory bowel disease. No history of coronary artery disease. On arrival to the ED, she was afebrile, HR was tachycardic at 112, BP 105/68, RR 19, satting 98% on room air. Her WBC was normal. Hgb normal at 12.5. Platelets normal at 138k/uL. INR elevated to 3.2. Cr normal at 0.72. Chloride elevated to 115, electrolytes otherwise normal. Lactate not elevated. T bili elevated to 1.7. Trop detectable at 0.022. Fecal Occult blood positive. COVID 19 negative. EKG showing A-Fib with RVR. 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 The ED provider manually disimpacted stool from her rectum, which resulted in a bloody BM. She was given vit K 2.5mg IV, protonix 80mg, IV, Metoprolol 2.5mg, IV, and 2 liters of normal saline. Admission Exam Per Admitting Provider Constitutional: + thin, + frail appearing and cooperative; no acute distress Eyes: + anicteric sclerae ENMT: external ear and nose normal, oropharynx normal Neck: normal visual inspection and trachea midline Respiratory: normal respiratory effort; no respiratory distress and no cough Auscultation: + wheezes (on expiration, RLL); no crackles, no rales and no pleural rub Cardiovascular: Rate/Rhythm: + tachycardic and + irregularly irregular Heart Sounds: normal S1, normal S2 and + murmur (systolic ejection ) Extremities: no pedal edema Gastrointestinal (Abdomen): Inspection/Auscultation: abdomen normal to inspection and normal bowel sounds; abdomen not distended Percussion/Palpation: + abdomen tender (suprapubic region ) and abdomen soft; no guarding and no hepatosplenomegaly Skin: no rashes, warm and dry Neurologic: moves all extremities Psychiatric: A+Ox3, euthymic affect Principal Diagnosis Sterocoral colitis Discharge Exam Constitutional WD/WN, vitals as above Eyes PERRL, conjunctivae normal, anicteric sclerae ENMT external ear and nose normal, oropharynx normal Respiratory normal respiratory effort, lungs clear to auscultation Cardiovascular Rate/Rhythm: + irregularly irregular Heart Sounds: + murmur (2/6 KRISTIAN) Gastrointestinal (Abdomen) normal bowel sounds, soft, nontender, no hepatosplenomegaly Psychiatric Orientation: alert and oriented to person; + not oriented to place and + not oriented to time Discharge Data Allergies Allergy/AdvReac Type Severity Reaction Status Date / Time No Known Allergies Allergy Unverified 07/25/20 20:40 Consultations 07/25/20 20:46 ED Decision to Admit Stat 07/25/20 23:48 Consult Gastroenterology Routine Procedures Performed Operation Date: 07/29/20 16:00 Actual Procedures p Colonoscopy Polypectomy - Blank Rajput MD Ordered Studies 07/25/20 19:55 CT angio abdomen pelvis w con Stat Hospital Course (1) Bright red rectal bleeding: Patient is an 85 year old woman with PMHx Atrial fibrillation and a bioprosthetic mitral valve, on anticoagulation with warfarin, who was admitted for evaluation of hematochezia noted on day of admission. At that time she was reported to have a bloody BM witnessed by nursing staff and had complained of rectal pain for 4-6 weeks prior. Bright Red Rectal Bleeding, likely secondary to Stercoral colitis/ulcer -History of significant fecal impactions and need for multiple manual disimpactions while on Coumadin -Other GI sources such as diverticular bleeding, mass, or AV malformation -GI Consulted -S/P colonoscopy on 07/29/20 which noted multiple diminutive poyps which were clipped and a clean based ulcer at the anal verge consistent with stercoral colitis. -Patient's H&H has been stable throughout stay without obvious signs of worsening bleed. -Diet was advanced to good effect. -Started on regiment of Miralax 1 packet BID, upon discharge may up titrate PRN for bowel movement every 1-2 days. -Discontinued patients home Senna Atrial Fibrillation -[id number] of 3 -Rate controlled, PRN Lopressor while inpatient. -Restarted home Warfarin dosing after colonoscopy ruling out active bleed. -INR 2.1 on day of discharge, goal 2-3 Fecal Retention -Noted on CTA on admission and s/p manual disimpaction -Miralax bowel regiment as above HLD -Continued home Atorvastatin 20mg qd -Resumed home aspirin Hypothyroidism -Continued home Levothyroxine 50mcg qd Hyperbilirubinemia -Total bilirubin 1.7 on admission, -Downtrended to 1.2 on 07/29/20 H/O Mitral valve replacement -Resumed home warfarin Dementia -Continued home Aricept 10mg QHS Total Time Total Time Spent Total Time Spent (In Minutes): <30 Discharge Plan Discharge Items Patient Disposition: Home - Self-Care Reason For Visit: GI BLEED Discharge Diagnosis: Stercoral colitis, Multiple diminutive polyps Activity: Resume your previous activity Non-emergency contact: Primary Care Provider Call non-emergency contact if: you have any medication questions Follow-up/Referrals: Sandra Spencer [Primary Care Provider] - Diet: Regular Addtl Attending Provider Instructions: Patient is an 85 year old woman with PMHx Atrial fibrillation and a biopr osthetic mitral valve, on anticoagulation with warfarin, who was admitted for evaluation of hematochezia noted on day of admission. At that time she was reported to have a bloody BM witnessed by nursing staff and had complained of rectal pain for 4-6 weeks prior. Bright Red Rectal Bleeding, likely secondary to Stercoral colitis/ulcer -History of significant fecal impactions and need for multiple manual disimpactions while on Coumadin -Other GI sources such as diverticular bleeding, mass, or AV malformation -S/P colonoscopy on 07/29/20 which noted multiple diminutive poyps which were clipped and a clean based ulcer at the anal verge consistent with stercoral colitis. -Patient's H&H has been stable throughout stay without obvious signs of worsening bleed. -Diet was advanced without issues -Will start patient with bowel regiment of Miralax 1 packet BID and titrate up PRN for bowel movement every 1-2 days. -Discontinue home Senna Atrial Fibrillation -[id number] of 3 -Continue home Warfarin -INR goal 2-3 Fecal Retention -Noted on CTA on admission and s/p manual disimpaction -Miralax bowel regiment as above -Discontinue Senna HLD -Continue home Atorvastatin 20mg qd -Continue home aspirin Hypothyroidism -Continue home Levothyroxine 50mcg qd Hyperbilirubinemia -Total bilirubin 1.7 on admission -Downtrending to 1.2 on 07/29/20 -Resolved H/O Mitral valve replacement -Continue home warfarin Dementia -Continue home Aricept 10mg QHS FEN: Regular diet DVT: Warfarin Code: DNR/DNI Dispo: Discharge home to [facility] today. Pending Studies at Discharge: No Stand-Alone Forms: [employer], Smoking Cessation Medications and DC Order Prescriptions: New polyethylene glycol 3350 [Miralax] 17 gram Powder In Packet 17 g PO BID 30 Days Qty: 60 RF: 0 Continued multivitamin Tablet 1 tab PO DAILY RF: 0 atorvastatin [Lipitor] 20 mg tablet 20 mg PO HS RF: 0 donepezil [Aricept] 10 mg tablet 10 mg PO QPM RF: 0 cyanocobalamin (vitamin B-12) [Vitamin B-12] 1,000 mcg Tablet 1,000 mcg PO DAILY RF: 0 aspirin 81 mg Tablet,Delayed Release (Dr/Ec) 81 mg PO DAILY RF: 0 levothyroxine [Synthroid] 50 mcg tablet 50 mcg PO QPM RF: 0 dorzolamide-timolol 22.3-6.8 mg/mL drops 1 drp OPB BID RF: 0 Lumigan 0.01 % drops 1 drp OPB HS RF: 0 Boost 0.04 gram- 1 kcal/mL Liquid 1 ea PO BID RF: 0 Rhopressa 0.02 % drops 1 drp OPL DAILY RF: 0 acetaminophen [Tylenol] 325 mg Tablet 650 mg PO Q4 PRN (Reason: Fever Or Pain) RF: 0 warfarin 2.5 mg tablet 2.5 mg PO 2XWK RF: 0 warfarin 2 mg tablet 2 mg PO 5XWK RF: 0 Discontinued sennosides-docusate sodium [Senna-S] 8.6-50 mg Tablet 1 tab-cap PO UD RF: 0 amoxicillin 500 mg capsule 2,000 mg PO UD RF: 0 Discharge Orders: Discharge Order (Routine); Ordered 07/30/20 Ordered By: Alberto Villagomez Admission Data Admit Date/Time: 07/25/20 22:31 Attending Provider: Jayden Lei Admit Provider: Karen Valero Primary Care Provider: Sandra bucioSpencer Other Providers: Bull Peterson ; Dmitry Pena Other Interventions: Discharge Summary Assessment (RN) Last Done: 07/30/20 12:21 Supervising Physician Co-Signing Physician Notes I personally examined the patient and verified all tavarez points of history and exam, discussed case, and agree with decision making with Dr Villagomez. eating well no complaints or concerns vitals noted nad heent nc at mmm breathing unlabored no accessory muscles good effort skin no rashes no pallor or icterus neuro no focal deficits BRBPR - stercoral colitis/ulcer - no significant blood loss. stable. home today. bowel regimen afib - ok to resume coumadin, follow INR (bleeding stopped even w INR 2.1) Resident Activity Tracking Resident Involvement: Resident Care Provided Care Provided: Adult Hospital Medicine
[2020-07-30 11:37] VITALS: BP 83/60; TEMP 97.7; O2SAT 95
[2020-07-30 12:22] VITALS: PULSE 99
[2020-07-30] MEDS ORDERED: WARFARIN SOD 2.5 MG TAB PO SCH (16:00)
--- NOTE | 2020-07-30 16:08 | Billing Data ---
Date of Service July 30, 2020 Coding Level of Care Code D/C Day Management <30 mins
== END 2020-07-30 14:40 | disposition home or self-care (01) | DRG 394 ==
LOC: ED 17:23 → 2W 22:31 → SUATTDRO 22:31 → 2W 23:13
DX: Z87.891 Personal history of nicotine dependence; G30.9 Alzheimer's disease, unspecified; K92.2 Gastrointestinal hemorrhage, unspecified; H40.9 Unspecified glaucoma; Z79.01 Long term (current) use of anticoagulants; E78.5 Hyperlipidemia, unspecified; K62.6 Ulcer of anus and rectum; K52.89 Other specified noninfective gastroenteritis and colitis; I48.0 Paroxysmal atrial fibrillation; Z95.2 Presence of prosthetic heart valve; F02.80 Dementia in other diseases classified elsewhere, unspecified severity, without behavioral disturbance, psychotic disturbance, mood disturbance, and anxiety; E03.9 Hypothyroidism, unspecified; Z79.82 Long term (current) use of aspirin; K56.41 Fecal impaction; Z66 Do not resuscitate

== ENCOUNTER 2021-01-28 11:23 | Inpatient (IN) ==
[2021-01-28] MEDS ORDERED: SODIUM CHLORIDE 0.9% 500 ML IV STA (12:15)
--- NOTE | 2021-01-28 12:34 | Emergency Department Note ---
Impression & Plan Acetabular fracture, Hematoma of hip, Fall, UTI (urinary tract infection) ED Provider Note NAME: DAYANARA KONG AGE: 85 SEX: F : 1935 ARRIVES VIA: Ambulance INFORMANT: EMS personnel and group home staff ED PROVIDER(S): Damian Yee DO CHIEF COMPLAINT: Hip pain HPI: The patient is an 85-year-old female who has a history of dementia who presented to the emergency department for evaluation of right hip pain. The history is somewhat unclear. The patient apparently had a fall in the recent past. She was ordered x-rays a week ago because of hip pain. The x-rays did not show any acute abnormality. The patient continued to complain of right hip pain and was noted to have a very large hematoma over her right lateral thigh. At that time a CT without contrast was ordered but they were unable to get the patient into a wheelchair so she was sent to the emergency department for further evaluation. The patient herself denies having any headache nausea or vomiting but she is very confused at this time. It does appear to be her baseline however she is able to flex the hip with pain. There was no reported other injury. There was no reported loss of consciousness. The patient does take Coumadin for chronic atrial fibrillation. INR was elevated today. This is another reason she was sent to the emergency department. ROS: See above HPI for pertinent positives & negatives. A total of 10 systems reviewed and were otherwise negative. PAST MEDICAL HISTORY: See Below PAST SURGICAL HISTORY: See Below FAMILY HISTORY: See Below SOCIAL HISTORY: See Below HOME MEDICATIONS: See Below ALLERGIES: See Below VITALS: See Below PHYSICAL EXAMINATION: GENERAL: The patient is awake and alert. She appears comfortable. EYES: The conjunctivae are clear. The pupils are round and reactive. EARS, NOSE, MOUTH AND THROAT: The nose is without any evidence of any deformity. NECK: The neck is nontender and supple. RESPIRATORY: Normal respiratory effort is noted there is no evidence of wheezing rhonchi or rales CARDIOVASCULAR: Regular rate and rhythm noted there no murmurs rubs or gallops normal S1 normal S2. GASTROINTESTINAL: The abdomen is soft. Abdomen is nontender. BACK: No midline tenderness was appreciated to palpation. MUSCULOSKELETAL/EXTREMITIES: There was pain with range of motion testing of the right hip. There was ecchymosis overlying the right lateral hip. SKIN: There is no obvious evidence of any rash. Skin was warm and dry. NEUROLOGIC: Patient is awake and oriented to person but not place time or situation. Strength was symmetric but diminished. MEDICAL DECISION MAKING: The patient is an 85-year-old female who presented to the emergency department because of right hip pain. The patient had right hip pain after a fall some days ago. Outpatient x-rays revealed no source for the pain. The patient started having ecchymosis over her lateral thigh. She does take blood thinners. There is concern of serious injury so the patient was sent to the emergency department for further evaluation. The patient was found to have a high INR. She did have anemia compared to her baseline. She was given a dose of vitamin K. CT was obtained and did reveal an acetabular fracture which was nondisplaced and a large thigh hematoma. I discussed the patient's laboratory and radiographic studies with the on-call [facility]. They have agreed to evaluate the patient in the emergency department. Given the patient's age and comorbidities she is not likely a surgical candidate and given that this is not displaced at this time she may require just rehab but this could also represent significant mortality given the patient's underlying medical conditions. The patient was ordered IV antibiotics in the emergency department once her urinary tract infection was noticed on urinalysis. This was called to the floor to give the antibiotic as the patient had just left our department. Triage Nursing notes reviewed. Prior medical records reviewed Vital Signs: reviewed and remarkable for no significant abnormalities Differential diagnosis: Fracture, dislocation, contusion, intra-abdominal, pneumothorax, intrathoracic, intracranial, neurologic, compartment syndrome, rhabdomyolysis, as well as other pathologies. ER treatment provided: See below Diagnostics interpreted by me: ECG: EKG was obtained in the emergency department. My interpretation is atrial fibrillation at 68 bpm. There was no PVCs. Diffuse ST abnormalities were noted. This was compared to a tracing from July 252020. No significant changes were noted. Cardiac Monitoring: An order was placed for continuous cardiac monitoring. The monitor shows a rate of 76 bpm with atrial fibrillation rhythm. Laboratory studies: As stated above and show below. Imaging studies: See below Consultation(s): 1415: I discussed this case with Dr. Brito who was on-call for the [facility] group. He will evaluate the patient in the emergency depa rtment for further management. Past Med/Surg History Medical History Bilateral leg pain Bronchitis Dementia Dizziness Dysphonia Encounter for monitoring coumadin therapy Endocarditis Streptococcus Herpes zoster Septicemia Surgical History H/O mitral valve replacement History of cataract surgery Family History Denies family history of Hearing loss Heart disease Allergies Myocardial infarction Hypertension Stroke Asthma Social History Smoking Status: Former smoker Tobacco Type: Cigarettes Hx Alcohol Use: No Hx Substance Use: No Preferred Language: Swedish Communication Ability: Effective Well Puller Required: No Beliefs That Will Affect Care: None marital status: Current Living Situation: Personal Care Facility Current Living Situation Comment: lives at [facility] current occupational status: retired How many Children do You have: 2 Feels Safe at Home: Yes Assistive Devices: Walker Allergies Allergies Allergy/AdvReac Type Severity Reaction Status Date / Time No Known Drug Allergies Allergy Unknown Verified 01/28/21 13:42 Home Meds Home Medications Medication Instructions Recorded Confirmed acetaminophen 325 mg tablet 650 mg PO Q4 PRN 07/25/20 01/28/21 (Tylenol) aspirin 81 mg tablet,delayed 81 mg PO DAILY 07/25/20 01/28/21 release atorvastatin 20 mg tablet (Lipitor) 20 mg PO HS 07/25/20 01/28/21 bimatoprost 0.01 % eye drops 1 drp OPB HS 07/25/20 01/28/21 (Lumigan) cyanocobalamin (vitamin B-12) 1,000 mcg PO PM 07/25/20 01/28/21 1,000 mcg tablet (Vitamin B-12) donepezil 10 mg tablet (Aricept) 10 mg PO QPM 07/25/20 01/28/21 dorzolamide 22.3 mg-timolol 6.8 1 drp OPB BID 07/25/20 01/28/21 mg/mL eye drops levothyroxine 50 mcg tablet 50 mcg PO QPM 07/25/20 01/28/21 (Synthroid) multivitamin 1 tab PO PM 07/25/20 01/28/21 netarsudil 0.02 % eye drops 1 drp OPL DAILY 07/25/20 01/28/21 (Rhopressa) warfarin 2 mg tablet 2 mg PO DAILY 07/25/20 01/28/21 Previous Rx's Medication Instructions Recorded ipratropium bromide 21 mcg (0.03 2 spray INTRANASAL DAILY #30 ml 09/04/20 %) nasal spray memantine 10 mg tablet 10 mg PO BID #60 tab 12/24/20 Results & Data (ED) Vital Signs Vital Signs - 24 hr 01/28/21 10:58 01/28/21 11:30 01/28/21 12:15 Temperature 36.4 C L Temperature Source Oral Pulse Rate 66 63 Pulse Rate [Apical] Pulse Rate from SpO2 Sensor 65 Pulse Rhythm Regular Pulse Rhythm [Apical] Pulse Strength Normal Pulse Strength [Apical] Respiratory Rate 18 25 H Respiratory Effort / Characteristics Non-Labored Spontaneous Respiratory Depth Normal Respiratory Pattern Blood Pressure 87/61 L 85/60 L Blood Pressure [Right Arm] Blood Pressure Mean 69 68 Blood Pressure Mean [Right Arm] Blood Pressure Position Lying Blood Pressure Position [Right Arm] Pulse Oximetry 96 96 93 Oxygen Delivery Method Room Air Room Air Sepsis Recent Fever Within 48 Hours No Sepsis New/Unexplained Change in Mental Status N/A Sepsis Action Taken by Nursing No Action Required 01/28/21 12:30 01/28/21 12:36 01/28/21 13:30 Temperature Temperature Source Pulse Rate 59 L 67 Pulse Rate [Apical] 70 Pulse Rate from SpO2 Sensor 71 Pulse Rhythm Pulse Rhythm [Apical] Irregular Pulse Strength Pulse Strength [Apical] Normal Respiratory Rate 22 16 19 Respiratory Effort / Characteristics Non-Labored Spontaneous Respiratory Depth Normal Respiratory Pattern Regular Blood Pressure 104/69 108/63 Blood Pressure [Right Arm] 104/69 Blood Pressure Mean 80 78 Blood Pressure Mean [Right Arm] 80 Blood Pressure Position Blood Pressure Position [Right Arm] Sitting Pulse Oximetry 95 98 Oxygen Delivery Method Room Air Sepsis Recent Fever Within 48 Hours Sepsis New/Unexplained Change in Mental Status Sepsis Action Taken by Nursing 01/28/21 14:00 01/28/21 14:30 01/28/21 15:00 Temperature Temperature Source Pulse Rate 69 58 L 65 Pulse Rate [Apical] Pulse Rate from SpO2 Sensor 70 62 Pulse Rhythm Pulse Rhythm [Apical] Pulse Strength Pulse Strength [Apical] Respiratory Rate 20 19 20 Respiratory Effort / Characteristics Respiratory Depth Respiratory Pattern Blood Pressure 114/79 117/78 109/79 Blood Pressure [Right Arm] Blood Pressure Mean 90 91 89 Blood Pressure Mean [Right Arm] Blood Pressure Position Blood Pressure Position [Right Arm] Pulse Oximetry 99 98 Oxygen Delivery Method Sepsis Recent Fever Within 48 Hours Sepsis New/Unexplained Change in Mental Status Sepsis Action Taken by Nursing 01/28/21 15:30 01/28/21 16:00 01/28/21 16:30 Temperature Temperature Source Pulse Rate 70 66 66 Pulse Rate [Apical] Pulse Rate from SpO2 Sensor Pulse Rhythm Pulse Rhythm [Apical] Pulse Strength Pulse Strength [Apical] Respiratory Rate 13 16 17 Respiratory Effort / Characteristics Respiratory Depth Respiratory Pattern Blood Pressure 111/77 113/77 109/86 Blood Pressure [Right Arm] Blood Pressure Mean 88 89 93 Blood Pressure Mean [Right Arm] Blood Pressure Position Blood Pressure Position [Right Arm] Pulse Oximetry Oxygen Delivery Method Sepsis Recent Fever Within 48 Hours Sepsis New/Unexplained Change in Mental Status Sepsis Action Taken by Nursing 01/28/21 19:46 Temperature Temperature Source Pulse Rate Pulse Rate [Apical] 76 Pulse Rate from SpO2 Sensor Pulse Rhythm Pulse Rhythm [Apical] Pulse Strength Pulse Strength [Apical] Respiratory Rate Respiratory Effort / Characteristics Respiratory Depth Respiratory Pattern Blood Pressure Blood Pressure [Right Arm] 112/77 Blood Pressure Mean Blood Pressure Mean [Right Arm] 88 Blood Pressure Position Blood Pressure Position [Right Arm] Pulse Oximetry 99 Oxygen Delivery Method Room Air Sepsis Recent Fever Within 48 Hours Sepsis New/Unexplained Change in Mental Status Sepsis Action Taken by Jail Medications Current Medication List: was personally reviewed by me Laboratory Data Attestation: I reviewed the patient's lab results. Result diagrams: 01/28/21 11:42 01/28/21 11:42 Lab Results 01/28/21 01/28/21 01/28/21 Range/Units 11:42 11:42 13:15 WBC 7.91 (4.8-10.8) K/uL RBC 3.72 L (4.2-5.4) M/uL Hgb 11.7 L (12.0-16.0) g/dL Hct 36.3 L (37-47) % MCV 97.6 (80-100) fL MCH 31.5 (25-34) pg MCHC 32.2 (32-36) g/dL RDW Std Deviation 59.9 H (36.4-46.3) fL RDW Coeff of Asa 17.2 H (11.5-14.5) % Plt Count 181 (130-400) K/uL MPV 11.0 H (7.4-10.4) fL Immature Gran % (Auto) 0.1 % Neut % (Auto) 75.9 % Lymph % (Auto) 13.4 % [place] % (Auto) 10.0 % Eos % (Auto) 0.5 % Baso % (Auto) 0.1 % Neut # (Auto) 6.00 (1.4-6.5) K/uL Lymph # (Auto) 1.06 L (1.2-3.4) K/uL [place] # (Auto) 0.79 H (0.11-0.59) K/uL Eos # (Auto) 0.04 (0-0.5) K/uL Baso # (Auto) 0.01 (0-0.2) K/uL Immature Gran # (Auto) 0.01 (0.00-0.02) K/uL PT 36.0 H (9.0-12.0) Seconds INR 4.0 H (0.9-1.1) APTT 39.3 H (21.0-31.0) Seconds PTT Ratio 1.5 Sodium 141 (136-145) mmol/L Potassium 4.2 (3.5-5.1) mmol/L Chloride 112 H (98-107) mmol/L Carbon Dioxide 26 (21-32) mmol/L Anion Gap 3.0 (3-11) BUN 20 H (7-18) mg/dl Creatinine 1.02 (0.6-1.2) mg/dl Est Cr Clr Drug Dosing 38.2 ml/min Est GFR ( Amer) 58.5 ml/min Est GFR (Non-Af Amer) 50.5 ml/min BUN/Creatinine Ratio 19.9 (10-20) Glucose 123 H (70-99) mg/dl Calcium 9.0 (8.5-10.1) mg/dl Total Bilirubin 1.6 H (0.2-1) mg/dl AST 25 (15-37) U/L ALT 32 (12-78) U/L Alkaline Phosphatase 106 (45-117) U/L Troponin I < 0.015 (0-0.045) ng/ml Total Protein 6.0 L (6.4-8.2) gm/dl Albumin 3.1 L (3.4-5.0) gm/dl Globulin 2.9 (2.5-4.0) gm/dl Albumin/Globulin Ratio 1.1 (0.9-2) Lipase 193 (73-393) U/L Urine Color Urine Appearance (Clear) Urine pH (4.5-7.5) Ur Specific [place] (1.000-1.030) Urine Protein (Negative) Urine Glucose (UA) (Negative) Urine Ketones (Negative) Urine Blood (Negative) Urine Nitrite (Negative) Urine Bilirubin (Negative) Urine Urobilinogen (Negative) Ur Leukocyte Esterase (Negative) Urine WBC (Auto) (0-5) /hpf Urine RBC (Auto) (0-4) /hpf U Hyaline Cast (Auto) (0-5) /lpf U Epithel Cells (Auto) (0-5) /lpf Urine Bacteria (Auto) (Negative) Urine Yeast COVID-19 Eval Order SARS-CoV-2 (PCR) (Negative) 01/28/21 01/28/21 01/28/21 Range/Units 15:04 15:33 15:33 WBC (4.8-10.8) K/uL RBC (4.2-5.4) M/uL Hgb (12.0-16.0) g/dL Hct (37-47) % MCV (80-100) fL MCH (25-34) pg MCHC (32-36) g/dL RDW Std Deviation (36.4-46.3) fL RDW Coeff of Asa (11.5-14.5) % Plt Count (130-400) K/uL MPV (7.4-10.4) fL Immature Gran % (Auto) % Neut % (Auto) % Lymph % (Auto) % [place] % (Auto) % Eos % (Auto) % Baso % (Auto) % Neut # (Auto) (1.4-6.5) K/uL Lymph # (Auto) (1.2-3.4) K/uL [place] # (Auto) (0.11-0.59) K/uL Eos # (Auto) (0-0.5) K/uL Baso # (Auto) (0-0.2) K/uL Immature Gran # (Auto) (0.00-0.02) K/uL PT (9.0-12.0) Seconds INR (0.9-1.1) APTT (21.0-31.0) Seconds PTT Ratio Sodium (136-145) mmol/L Potassium (3.5-5.1) mmol/L Chloride (98-107) mmol/L Carbon Dioxide (21-32) mmol/L Anion Gap (3-11) BUN (7-18) mg/dl Creatinine (0.6-1.2) mg/dl Est Cr Clr Drug Dosing ml/min Est GFR ( Amer) ml/min Est GFR (Non-Af Amer) ml/min BUN/Creatinine Ratio (10-20) Glucose (70-99) mg/dl Calcium (8.5-10.1) mg/dl Total Bilirubin (0.2-1) mg/dl AST (15-37) U/L ALT (12-78) U/L Alkaline Phosphatase (45-117) U/L Troponin I (0-0.045) ng/ml Total Protein (6.4-8.2) gm/dl Albumin (3.4-5.0) gm/dl Globulin (2.5-4.0) gm/dl Albumin/Globulin Ratio (0.9-2) Lipase (73-393) U/L Urine Color Yellow Urine Appearance Turbid A (Clear) Urine pH 7.0 (4.5-7.5) Ur Specific [place] 1.020 (1.000-1.030) Urine Protein Trace H (Negative) Urine Glucose (UA) Negative (Negative) Urine Ketones Negative (Negative) Urine Blood Negative (Negative) Urine Nitrite Positive A (Negative) Urine Bilirubin Negative (Negative) Urine Urobilinogen Negative (Negative) Ur Leukocyte Esterase 2+ H (Negative) Urine WBC (Auto) >30 H (0-5) /hpf Urine RBC (Auto) 5-10 H (0-4) /hpf U Hyaline Cast (Auto) 1-5 (0-5) /lpf U Epithel Cells (Auto) 20-30 H (0-5) /lpf Urine Bacteria (Auto) 4+ H (Negative) Urine Yeast Not Reportable COVID-19 Eval Order Covid19 at [facility] SARS-CoV-2 (PCR) NEGATIVE (Negative) Administered Medications Discontinued Medications Sodium Chloride (Nss) 500 mls @ 999 mls/hr IV .Q31M STA Stop: 01/28/21 12:45 Last Infusion: 01/28/21 13:36 Dose: 0 mls/hr Documented by: [id number] Admin: 01/28/21 12:48 Dose: 999 mls/hr Documented by: [id number] Phytonadione 5 mg/ Sodium (Chloride) 50.5 mls @ 101 mls/hr IV ONE ONE Stop: 01/28/21 14:34 Last Infusion: 01/28/21 15:39 Dose: 0 mls/hr Documented by: [id number] Admin: 01/28/21 15:09 Dose: 101 mls/hr Documented by: [id number] Imaging Data Radiologist's Impression: Cervical Spine CT 01/28/21 12:15 CT OF THE CERVICAL SPINE WITHOUT CONTRAST CLINICAL HISTORY: trauma COMPARISON STUDY: Cervical spine CT December 29, 2020. TECHNIQUE: Helical axial images of the cervical spine were obtained without IV contrast. Sagittal and coronal reconstructions were viewed. Automated exposure control was utilized for the study. A dose lowering technique was utilized adhering to the principles of ALARA. FINDINGS: Slight anterolisthesis of C4 on C5 is unchanged since prior CT. Vertebral body heights are maintained. No acute cervical spine fracture or subluxation is present. There is no prevertebral edema. Facet joints are intact. Moderate to severe multilevel degenerative disc disease and facet arthrosis is present. The appearance of the cervical spine is unchanged. IMPRESSION: No acute cervical spine fracture or subluxation. ACT 112: Negative or not required by law. Electronically signed by: Osiel Tafoya M.D. 01/28/2021 1:32 PM Chest X-Ray 01/28/21 12:15 SINGLE VIEW CHEST CLINICAL HISTORY: Atypical chest pain. FINDINGS: 2 AP, portable, upright chest radiographs are compared to study dated 12/15/2018. The patient is status post midline sternotomy and cardiac valve surgery. The heart is enlarged noting atherosclerotic calcification of the thoracic aorta. The pulmonary vasculature is noncongested. Chronic interstitial thickening is similar to previous. There is bibasilar scarring/atelectasis. No airspace consolidation or large pleural effusion is identified. No pneumothorax is seen. The skeletal structures are osteopenic. The bony thorax is grossly intact. IMPRESSION: Cardiomegaly with no acute cardiopulmonary abnormality. ACT 112: Negative or not required by law. Electronically signed by: Pa Blake M.D. 01/28/2021 12:[address] 01/28/21 12:15 CT head/brain wo con CLINICAL HISTORY: 85 years-old Female with trauma. Acute head injury status post trauma TECHNIQUE: Multiple axial CT images of the head were obtained without contrast. A dose lowering technique was utilized adhering to the principles of ALARA. CT DOSE: 1327.41 mGy.cm COMPARISON: Head CT 12/29/2020 FINDINGS: No acute intracranial hemorrhage, midline shift, intracranial mass, hydrocephalus, territorial ischemia or abnormal extra-axial collection. Age- related involutional changes with ex vacuo ventriculomegaly. White matter hypodensities suggestive of chronic microvascular ischemic disease. Cerebral vascular calcifications. The calvarium is intact. Prior bilateral lens repair. The paranasal sinuses, mastoid air cells, and middle ear cavities are clear. IMPRESSION: No acute intracranial abnormality or calvarial fracture. ACT 112: Negative or not required by law. The above report was generated using voice recognition software. It may contain grammatical, syntax or spelling errors. Electronically signed by: Rufino Javier M.D. 01/28/2021 1:[address] 01/28/21 12:15 CT hip RT wo con CT DOSE: CLINICAL HISTORY: trauma TECHNIQUE: A dose lowering technique was utilized adhering to the principles of ALARA. COMPARISON STUDY: None. Correlation is made with CT of abdomen and pelvis performed on July 25, 2020. FINDINGS: Cortical irregularity and linear lucency of anterior portion of the right acetabulum. Which likely represent nondisplaced fracture. Small lucency seen through posterior aspect of the right acetabulum which might also represent fracture. Acuity is unknown (8/292). Evaluation is limited due to diffuse osteopenia. Vascular calcifications and subcutaneous soft tissue edema is seen. IMPRESSION: Nondisplaced fracture deformity of anterior and posterior aspect of acetabulum. No evidence of dislocation. Acuity is unknown. Evaluation is limited due to osteopenia. Findings will be called to emergency Department. ACT 112: Negative or not required by law. The above report was generated using voice recognition software. It may contain grammatical, syntax or spelling errors. Electronically signed by: Gela Santos DO 01/28/2021 1:[address] 01/28/21 12:15 CT pelvis wo con CLINICAL HISTORY: trauma COMPARISON STUDY: Pelvis radiograph December 29, 2020. CTA of the abdomen and pelvis July 17, 2020. TECHNIQUE: Axial images of the pelvis and hips were obtained without IV contrast. Sagittal and coronal reconstructions were viewed. Automated exposure control was utilized for the study. A dose lowering technique was utilized adhering to the principles of ALARA. FINDINGS: Note is made of moderate acute intramuscular hemorrhage within the right gluteal musculature extending into the right piriformis. The sacroiliac joints and symphysis pubis are intact. No acute proximal femoral fracture is present. Alignment of the hips is anatomic. Note is made of a nondisplaced fracture of the anterior wall of the right acetabulum. This is new since CT of July 17, 2020. There may also be a healing fracture of the medial aspect of the left pubic bone as well as the right inferior pubic ramus. IMPRESSION: 1. No acute proximal femoral fracture. 2. Moderate acute intramuscular hemorrhage within the right gluteal musculature extending into the right piriformis. 3. Nondisplaced fracture of the anterior wall of the right acetabulum. This is age indeterminate but appears subacute. Suspected healing fractures of the medial left pubic bone and right inferior pubic ramus. ACT 112: Negative or not required by law. Electronically signed by: Osiel Tafoya M.D. 01/28/2021 1:44 PM Discharge Plan Visit Data Chief Complaint: Hip Pain Stated Complaint: HIP PAIN ED Provider: Damian Yee Discharge Problem: Acetabular fracture, Hematoma of hip, Fall, UTI (urinary tract infection) Patient Disposition: Admitted As Inpatient Condition: Good Discharge Instructions Interventions: ED Discharge Assessment Last Done: 01/28/21 19:40 Forms Stand Alone Forms: [employer] Prescriptions Prescriptions: No Action memantine 10 mg tablet 10 mg PO BID Qty: 60 RF: 5 ipratropium bromide 21 mcg (0.03 %) spray,non-aerosol 2 spray intranasal DAILY Qty: 30 RF: 2 multivitamin Tablet 1 tab PO PM RF: 0 atorvastatin [Lipitor] 20 mg tablet 20 mg PO HS RF: 0 donepezil [Aricept] 10 mg tablet 10 mg PO QPM RF: 0 cyanocobalamin (vitamin B-12) [Vitamin B-12] 1,000 mcg Tablet 1,000 mcg PO PM RF: 0 aspirin 81 mg Tablet,Delayed Release (Dr/Ec) 81 mg PO DAILY RF: 0 levothyroxine [Synthroid] 50 mcg tablet 50 mcg PO QPM RF: 0 dorzolamide-timolol 22.3-6.8 mg/mL drops 1 drp OPB BID RF: 0 Lumigan 0.01 % drops 1 drp OPB HS RF: 0 Rhopressa 0.02 % drops 1 drp OPL DAILY RF: 0 acetaminophen [Tylenol] 325 mg Tablet 650 mg PO Q4 PRN (Reason: Fever Or Pain) RF: 0 warfarin 2 mg tablet 2 mg PO DAILY RF: 0 Referrals Referrals: Cesar Flower [Primary Care Provider] - Discharge Problem: Acetabular fracture Qualifiers: Encounter type: initial encounter Sublocation of acetabulum: unspecified portion of acetabulum Fracture type: closed Fracture alignment: nondisplaced Laterality: right Qualified Code(s): S32.401A - Unspecified fracture of right acetabulum, initial encounter for closed fracture Hematoma of hip Qualifiers: Encounter type: initial encounter Laterality: right Qualified Code(s): S70.01XA - Contusion of right hip, initial encounter Fall Qualifiers: Encounter type: initial encounter Qualified Code(s): W19.XXXA - Unspecified fall, initial encounter UTI (urinary tract infection) Qualifiers: Urinary tract infection type: site unspecified Hematuria presence: without hematuria Qualified Code(s): N39.0 - Urinary tract infection, site not specified
--- NOTE | 2021-01-28 12:54 | XRay Report ---
SINGLE VIEW CHEST CLINICAL HISTORY: Atypical chest pain. FINDINGS: 2 AP, portable, upright chest radiographs are compared to study dated 12/15/2018. The patien t is status post midline sternotomy and cardiac valve surgery. The heart is enlarged noting atheroscl erotic calcification of the thoracic aorta. The pulmonary vasculature is noncongested. Chronic inters titial thickening is similar to previous. There is bibasilar scarring/atelectasis. No airspace consol idation or large pleural effusion is identified. No pneumothorax is seen. The skeletal structures are osteopenic. The bony thorax is grossly intact. IMPRESSION: Cardiomegaly with no acute cardiopulmonary abnormality. ACT 112: Negative or not required by law. Electronically signed by: Pa Blake M.D. 01/28/2021 12:53 PM
[2021-01-28 13:09] LABS: Basophils # (auto) 0.01 K/uL (0-0.2); Basophils % (auto) 0.1 %; Eosinophils # (auto) 0.04 K/uL (0-0.5); Eosinophils % (auto) 0.5 %; Hematocrit (blood only) 36.3 % (37-47); Hemoglobin 11.7 g/dL (12.0-16.0); Immature Granulocytes # (auto) 0.01 K/uL (0.00-0.02); Immature Granulocytes % (auto) 0.1 %; Lymphocytes # (auto) 1.06 K/uL (1.2-3.4); Lymphocytes % (auto) 13.4 %; Mean Corpuscular Hemoglobin 31.5 pg (25-34); Mean Corpuscular Hgb Conc 32.2 g/dL (32-36); Mean Corpuscular Volume 97.6 fL (80-100); Monocytes # (auto) 0.79 K/uL (0.11-0.59); Neutrophils % (auto) 75.9 %; Platelet Count 181 K/uL (130-400); RDW Coefficient of Variation 17.2 % (11.5-14.5); RDW Standard Deviation 59.9 fL (36.4-46.3); Red Blood Count 3.72 M/uL (4.2-5.4); White Blood Count 7.91 K/uL (4.8-10.8)
[2021-01-28 13:17] LABS: Alanine Aminotransferase 32 U/L (12-78); Albumin Level 3.1 gm/dl (3.4-5.0); Aspartate Aminotransferase 25 U/L (15-37); BUN Creatinine Ratio 19.9 (10-20); Blood Urea Nitrogen 20 mg/dl (7-18); Carbon Dioxide 26 mmol/L (21-32); Chloride 112 mmol/L (98-107); Creatinine Clr Calc Pharmacy 38.2 ml/min; Est GFR (African American) 58.5 ml/min; Est GFR (Non-African American) 50.5 ml/min; Glucose 123 mg/dl (70-99); Lipase 193 U/L (73-393); Potassium 4.2 mmol/L (3.5-5.1); Sodium 141 mmol/L (136-145)
[2021-01-28 13:21] LABS: Albumin Globulin Ratio 1.1 (0.9-2); Alkaline Phosphatase 106 U/L (45-117); Bilirubin,Total 1.6 mg/dl (0.2-1); Globulin 2.9 gm/dl (2.5-4.0); Troponin I < 0.015 ng/ml (0-0.045)
--- NOTE | 2021-01-28 13:26 | CT Scan Report ---
CT head/brain wo con CLINICAL HISTORY: 85 years-old Female with trauma. Acute head injury status post trauma TECHNIQUE: Multiple axial CT images of the head were obtained without contrast. A dose lowering tech nique was utilized adhering to the principles of ALARA. CT DOSE: 1327.41 mGy.cm COMPARISON: Head CT 12/29/2020 FINDINGS: No acute intracranial hemorrhage, midline shift, intracranial mass, hydrocephalus, territorial ischem ia or abnormal extra-axial collection. Age-related involutional changes with ex vacuo ventriculomegal y. White matter hypodensities suggestive of chronic microvascular ischemic disease. Cerebral vascular calcifications. The calvarium is intact. Prior bilateral lens repair. The paranasal sinuses, mastoid air cells, and m iddle ear cavities are clear. IMPRESSION: No acute intracranial abnormality or calvarial fracture. ACT 112: Negative or not required by law. The above report was generated using voice recognition software. It may contain grammatical, syntax o r spelling errors. Electronically signed by: Rufino Javier M.D. 01/28/2021 1:24 PM
--- NOTE | 2021-01-28 13:30 | CT Scan Report ---
CT hip RT wo con CT DOSE: CLINICAL HISTORY: trauma TECHNIQUE: A dose lowering technique was utilized adhering to the principles of ALARA. COMPARISON STUDY: None. Correlation is made with CT of abdomen and pelvis performed on July 25. FINDINGS: Cortical irregularity and linear lucency of anterior portion of the right acetabulum. Which likely re present nondisplaced fracture. Small lucency seen through posterior aspect of the right acetabulum wh ich might also represent fracture. Acuity is unknown (). Evaluation is limited due to diffuse osteopenia. Vascular calcifications and subcutaneous soft tissue edema is seen. IMPRESSION: Nondisplaced fracture deformity of anterior and posterior aspect of acetabulum. No evidence of disloc ation. Acuity is unknown. Evaluation is limited due to osteopenia. Findings will be called to emergen cy Department. ACT 112: Negative or not required by law. The above report was generated using voice recognition software. It may contain grammatical, syntax o r spelling errors. Electronically signed by: Gela Santos DO 01/28/2021 1:29 PM
--- NOTE | 2021-01-28 13:33 | CT Scan Report ---
CT OF THE CERVICAL SPINE WITHOUT CONTRAST CLINICAL HISTORY: trauma COMPARISON STUDY: Cervical spine CT December 29, 2020. TECHNIQUE: Helical axial images of the cervical spine were obtained without IV contrast. Sagittal a nd coronal reconstructions were viewed. Automated exposure control was utilized for the study. A do se lowering technique was utilized adhering to the principles of ALARA. FINDINGS: Slight anterolisthesis of C4 on C5 is unchanged since prior CT. Vertebral body heights are maintained. No acute cervical spine fracture or subluxation is present. There is no prevertebral charisma a. Facet joints are intact. Moderate to severe multilevel degenerative disc disease and facet arthro sis is present. The appearance of the cervical spine is unchanged. IMPRESSION: No acute cervical spine fracture or subluxation. ACT 112: Negative or not required by law. Electronically signed by: Osiel Tafoya M.D. 01/28/2021 1:32 PM
--- NOTE | 2021-01-28 13:45 | CT Scan Report ---
CT pelvis wo con CLINICAL HISTORY: trauma COMPARISON STUDY: Pelvis radiograph December 29, 2020. CTA of the abdomen and pelvis July 17, 2020. TECHNIQUE: Axial images of the pelvis and hips were obtained without IV contrast. Sagittal and bills l reconstructions were viewed. Automated exposure control was utilized for the study. A dose lowerin g technique was utilized adhering to the principles of ALARA. FINDINGS: Note is made of moderate acute intramuscular hemorrhage within the right gluteal musculatur e extending into the right piriformis. The sacroiliac joints and symphysis pubis are intact. No acute proximal femoral fracture is present. Alignment of the hips is anatomic. Note is made of a nondispla yolette fracture of the anterior wall of the right acetabulum. This is new since CT of July 17, 2020. There may also be a healing fracture of the medial aspect of the left pubic bone as well as the right inferior pubic ramus. IMPRESSION: 1. No acute proximal femoral fracture. 2. Moderate acute intramuscular hemorrhage within the right gluteal musculature extending into the ri ght piriformis. 3. Nondisplaced fracture of the anterior wall of the right acetabulum. This is age indeterminate but appears subacute. Suspected healing fractures of the medial left pubic bone and right inferior pubic ramus. ACT 112: Negative or not required by law. Electronically signed by: Osiel Tafoya M.D. 01/28/2021 1:44 PM
[2021-01-28 13:55] LABS: Partial Thromboplastin Ratio 1.5; Partial Thromboplastin Time 39.3 Seconds (21.0-31.0)
[2021-01-28] MEDS ORDERED: PHYTONADIONE 5 MG in SODIUM CHLORIDE 0.9% 50 ML IV ONE (14:05)
[2021-01-28 15:23] LABS: Appearance Urine Turbid (Clear); Bacteria Urine Automated 4+ (Negative); Bilirubin Urine Negative (Negative); Blood Urine Negative (Negative); Color Urine Yellow; Epithelial Cell Urine Auto 20-30 /lpf (0-5); Glucose Urine UA Negative (Negative); Ketones Urine Negative (Negative); Leukocyte Esterase Urine 2+ (Negative); Nitrite Urine Positive (Negative); Protein Urine Trace (Negative); Urobilinogen Urine Negative (Negative); WBC Urine Automated >30 /hpf (0-5)
--- NOTE | 2021-01-28 15:36 | History & Physical Report ---
Date of Service January 28, 2021 Assessment & Plan (1) Acetabular fracture: Plan: Patient has right acetabular fracture on CT scan Has some soreness, for now will use Tylenol and ice as needed We will ask orthopedics to evaluate, suspect no surgical intervention will be required PT/OT once cleared for weightbearing (2) Hematoma: Plan: Patient did drop 2 g hemoglobin, has obvious right hip hematoma Continue to monitor for worsening. Follow H&H Treat coagulopathy as noted below (3) Warfarin-induced coagulopathy: Plan: INR is currently 4 while on Coumadin Patient was given 5 mg of vitamin K IV, will continue to monitor Patient does have frequent falls, may need to reconsider safety of full dose anticoagulation (Of note, the patient has a porcine mitral valve) (4) Hyperlipidemia: Plan: Continue Lipitor as ordered (5) Atrial fibrillation: Plan: Currently rate controlled. Hold anticoagulation as noted (6) Hypothyroid: Plan: Continue levothyroxine (7) Dementia: Plan: Continue Aricept and memantine as ordered History of Present Illness Chief Complaint: Right hip pain Primary Care Provider: Cesar Flower This is an 85-year-old female with past medical history of senile dementia, chronic atrial fibrillation, status post mitral valve replacement that presents today complaining of right hip pain. Patient is a limited historian but has a family friend in the room who is able to elaborate. Per history, patient was ambulatory episode yesterday. Earlier today, she was unable to ambulate at all which prompted staff at [facility] to transport to the emergency room for further evaluation. Here, she was found to have large hematoma on her right hip with some superficial ecchymosis. She is on Coumadin was found to be supratherapeutic with an INR 4. Of note, patient had 2 previous hospitalizations in the emergency room here on December 29 of this year. This was after a fall which landed on her right hip. At that time, head CT was negative. She was sent back to the assisted living but returned in the afternoon complaining more pain. Again, she was able to ambulate and x-ray of the pelvis at that time was negative for any fracture. Today, patient had a CT scan of the pelvis which showed right acetabular fracture along with healing fractures of the left pubic bone and right inferior pubic ramus. There is concern the patient may have had a second unwitnessed fall but the patient denies this. She does have a history of dementia and may not be reliable. However, the time my evaluation the patient is complaining of soreness of the right hip but otherwise appear to be in good spirits and in no acute distress. Vitals are stable, pulse is at 70 and she appears to be in atrial fibrillation on the monitor. Allergies Allergy/AdvReac Type Severity Reaction Status Date / Time No Known Drug Allergies Allergy Unknown Verified 01/28/21 13:42 Home Medications Medication Instructions Recorded Confirmed Type acetaminophen 325 mg tablet 650 mg PO Q4 PRN 07/25/20 01/28/21 History (Tylenol) aspirin 81 mg tablet,delayed 81 mg PO DAILY 07/25/20 01/28/21 History release atorvastatin 20 mg tablet (Lipitor) 20 mg PO HS 07/25/20 01/28/21 History bimatoprost 0.01 % eye drops 1 drp OPB HS 07/25/20 01/28/21 History (Lumigan) cyanocobalamin (vitamin B-12) 1,000 mcg PO PM 07/25/20 01/28/21 History 1,000 mcg tablet (Vitamin B-12) donepezil 10 mg tablet (Aricept) 10 mg PO QPM 07/25/20 01/28/21 History dorzolamide 22.3 mg-timolol 6.8 1 drp OPB BID 07/25/20 01/28/21 History mg/mL eye drops levothyroxine 50 mcg tablet 50 mcg PO QPM 07/25/20 01/28/21 History (Synthroid) multivitamin 1 tab PO PM 07/25/20 01/28/21 History netarsudil 0.02 % eye drops 1 drp OPL DAILY 07/25/20 01/28/21 History (Rhopressa) warfarin 2 mg tablet 2 mg PO DAILY 07/25/20 01/28/21 History ipratropium bromide 21 mcg (0.03 2 spray INTRANASAL DAILY #30 ml 09/04/20 01/28/21 Rx %) nasal spray memantine 10 mg tablet 10 mg PO BID #60 tab 12/24/20 01/28/21 Rx Past Med/Surg History Medical History Bilateral leg pain Bronchitis Dementia Dizziness Dysphonia Encounter for monitoring coumadin therapy Endocarditis Streptococcus Herpes zoster Septicemia Surgical History H/O mitral valve replacement History of cataract surgery Family History Denies family history of Hearing loss Heart disease Allergies Myocardial infarction Hypertension Stroke Asthma Social History Smoking Status: Former smoker Tobacco Type: Cigarettes Hx Alcohol Use: No Hx Substance Use: No Preferred Language: Greek Communication Ability: Effective Brand Executive Required: No Beliefs That Will Affect Care: None marital status: Current Living Situation: Personal Care Facility Current Living Situation Comment: lives at [facility] current occupational status: retired How many Children do You have: 2 Feels Safe at Home: Yes Assistive Devices: Walker Review of Systems Review of Systems: Unreliable secondary to patient's dementia, otherwise as noted above Physical Exam Constitutional: cooperative; no acute distress Neck: trachea midline, no thyromegaly Respiratory: normal respiratory effort Auscultation: lungs clear to auscult ation bilaterally; no crackles, no rales, no rhonchi and no wheezes Cardiovascular: Rate/Rhythm: regular rate and regular rhythm Heart Sounds: normal S1 and + murmur Gastrointestinal (Abdomen): Inspection/Auscultation: abdomen normal to inspection Percussion/Palpation: abdomen soft; abdomen nontender, no guarding, abdomen not rigid and no hepatosplenomegaly Skin: Trauma: + hematoma (R hip with firm hematoma, ecchymosis on surface. minimally tender) Results & Data Results & Data ([facility]) Vital Signs (Past 12 Hours) Vital Signs Temp Pulse Pulse Resp BP BP Pulse Ox 01/28/21 12:36 70 16 104/69 95 01/28/21 12:15 93 01/28/21 10:58 36.4 C L 66 18 87/61 L 96 Laboratory Results Laboratory Results WBC 7.91 K/uL (4.8-10.8) 01/28/21 11:42 RBC 3.72 M/uL (4.2-5.4) L 01/28/21 11:42 Hgb 11.7 g/dL (12.0-16.0) L 01/28/21 11:42 Hct 36.3 % (37-47) L 01/28/21 11:42 MCV 97.6 fL (80-100) 01/28/21 11:42 MCH 31.5 pg (25-34) 01/28/21 11:42 MCHC 32.2 g/dL (32-36) 01/28/21 11:42 RDW Std Deviation 59.9 fL (36.4-46.3) H 01/28/21 11:42 RDW Coeff of Asa 17.2 % (11.5-14.5) H 01/28/21 11:42 Plt Count 181 K/uL (130-400) 01/28/21 11:42 MPV 11.0 fL (7.4-10.4) H 01/28/21 11:42 Immature Gran % (Auto) 0.1 % 01/28/21 11:42 Neut % (Auto) 75.9 % 01/28/21 11:42 Lymph % (Auto) 13.4 % 01/28/21 11:42 [place] % (Auto) 10.0 % 01/28/21 11:42 Eos % (Auto) 0.5 % 01/28/21 11:42 Baso % (Auto) 0.1 % 01/28/21 11:42 Neut # (Auto) 6.00 K/uL (1.4-6.5) 01/28/21 11:42 Lymph # (Auto) 1.06 K/uL (1.2-3.4) L 01/28/21 11:42 [place] # (Auto) 0.79 K/uL (0.11-0.59) H 01/28/21 11:42 Eos # (Auto) 0.04 K/uL (0-0.5) 01/28/21 11:42 Baso # (Auto) 0.01 K/uL (0-0.2) 01/28/21 11:42 Immature Gran # (Auto) 0.01 K/uL (0.00-0.02) 01/28/21 11:42 PT 36.0 Seconds (9.0-12.0) H 01/28/21 13:15 INR 4.0 (0.9-1.1) H 01/28/21 13:15 APTT 39.3 Seconds (21.0-31.0) H 01/28/21 13:15 PTT Ratio 1.5 01/28/21 13:15 Sodium 141 mmol/L (136-145) 01/28/21 11:42 Potassium 4.2 mmol/L (3.5-5.1) 01/28/21 11:42 Chloride 112 mmol/L (98-107) H 01/28/21 11:42 Carbon Dioxide 26 mmol/L (21-32) 01/28/21 11:42 Anion Gap 3.0 (3-11) 01/28/21 11:42 BUN 20 mg/dl (7-18) H 01/28/21 11:42 Creatinine 1.02 mg/dl (0.6-1.2) 01/28/21 11:42 Est Cr Clr Drug Dosing 38.2 ml/min 01/28/21 11:42 Est GFR ( Amer) 58.5 ml/min 01/28/21 11:42 Est GFR (Non-Af Amer) 50.5 ml/min 01/28/21 11:42 BUN/Creatinine Ratio 19.9 (10-20) 01/28/21 11:42 Glucose 123 mg/dl (70-99) H 01/28/21 11:42 Calcium 9.0 mg/dl (8.5-10.1) 01/28/21 11:42 Total Bilirubin 1.6 mg/dl (0.2-1) H 01/28/21 11:42 AST 25 U/L (15-37) 01/28/21 11:42 ALT 32 U/L (12-78) 01/28/21 11:42 Alkaline Phosphatase 106 U/L (45-117) 01/28/21 11:42 Troponin I < 0.015 ng/ml (0-0.045) 01/28/21 11:42 Total Protein 6.0 gm/dl (6.4-8.2) L 01/28/21 11:42 Albumin 3.1 gm/dl (3.4-5.0) L 01/28/21 11:42 Globulin 2.9 gm/dl (2.5-4.0) 01/28/21 11:42 Albumin/Globulin Ratio 1.1 (0.9-2) 01/28/21 11:42 Lipase 193 U/L (73-393) 01/28/21 11:[address] 01/28/21 12:15 CT OF THE CERVICAL SPINE WITHOUT CONTRAST CLINICAL HISTORY: trauma COMPARISON STUDY: Cervical spine CT December 29, 2020. TECHNIQUE: Helical axial images of the cervical spine were obtained without IV contrast. Sagittal and coronal reconstructions were viewed. Automated exposure control was utilized for the study. A dose lowering technique was utilized adhering to the principles of ALARA. FINDINGS: Slight anterolisthesis of C4 on C5 is unchanged since prior CT. Vertebral body heights are maintained. No acute cervical spine fracture or subluxation is present. There is no prevertebral edema. Facet joints are intact. Moderate to severe multilevel degenerative disc disease and facet arthrosis is present. The appearance of the cervical spine is unchanged. IMPRESSION: No acute cervical spine fracture or subluxation. ACT 112: Negative or not required by law. Electronically signed by: Osiel Tafoya M.D. 01/28/2021 1:32 PM Chest X-Ray 01/28/21 12:15 SINGLE VIEW CHEST CLINICAL HISTORY: Atypical chest pain. FINDINGS: 2 AP, portable, upright chest radiographs are compared to study dated 12/15/2018. The patient is status post midline sternotomy and cardiac valve surgery. The heart is enlarged noting atherosclerotic calcification of the thoracic aorta. The pulmonary vasculature is noncongested. Chronic interstitial thickening is similar to previous. There is bibasilar scarring/atelectasis. No airspace consolidation or large pleural effusion is identified. No pneumothorax is seen. The skeletal structures are osteopenic. The bony thorax is grossly intact. IMPRESSION: Cardiomegaly with no acute cardiopulmonary abnormality. ACT 112: Negative or not required by law. Electronically signed by: Pa Blake M.D. 01/28/2021 12:[address] 01/28/21 12:15 CT head/brain wo con CLINICAL HISTORY: 85 years-old Female with trauma. Acute head injury status post trauma TECHNIQUE: Multiple axial CT images of the head were obtained without contrast. A dose lowering technique was utilized adhering to the principles of ALARA. CT DOSE: 1327.41 mGy.cm COMPARISON: Head CT 12/29/2020 FINDINGS: No acute intracranial hemorrhage, midline shift, intracranial mass, hydrocephalus, territorial ischemia or abnormal extra-axial collection. Age- related involutional changes with ex vacuo ventriculomegaly. White matter hypodensities suggestive of chronic microvascular ischemic disease. Cerebral vascular calcifications. The calvarium is intact. Prior bilateral lens repair. The paranasal sinuses, mastoid air cells, and middle ear cavities are clear. IMPRESSION: No acute intracranial abnormality or calvarial fracture. ACT 112: Negative or not required by law. The above report was generated using voice recognition software. It may contain grammatical, syntax or spelling errors. Electronically signed by: Rufino Javier M.D. 01/28/2021 1:[address] 01/28/21 12:15 CT hip RT wo con CT DOSE: CLINICAL HISTORY: trauma TECHNIQUE: A dose lowering technique was utilized adhering to the principles of ALARA. COMPARISON STUDY: None. Correlation is made with CT of abdomen and pelvis performed on July 25, 2020. FINDINGS: Cortical irregularity and linear lucency of anterior portion of the right acetabulum. Which likely represent nondisplaced fracture. Small lucency seen through posterior aspect of the right acetabulum which might also represent fracture. Acuity is unknown (8/292). Evaluation is limited due to diffuse osteopenia. Vascular calcifications and subcutaneous soft tissue edema is seen. IMPRESSION: Nondisplaced fracture deformity of anterior and posterior aspect of acetabulum. No evidence of dislocation. Acuity is unknown. Evaluation is limited due to osteopenia. Findings will be called to emergency Department. ACT 112: Negative or not required by law. The above report was generated using voice recognition software. It may contain grammatical, syntax or spelling errors. Electronically signed by: Gela Santos DO 01/28/2021 1:[address] 01/28/21 12:15 CT pelvis wo con CLINICAL HISTORY: trauma COMPARISON STUDY: Pelvis radiograph December 29, 2020. CTA of the abdomen and pelvis July 17, 2020. TECHNIQUE: Axial images of the pelvis and hips were obtained without IV contrast. Sagittal and coronal reconstructions were viewed. Automated exposure control was utilized for the study. A dose lowering technique was utilized adhering to the principles of ALARA. FINDINGS: Note is made of moderate acute intramuscular hemorrhage within the right gluteal musculature extending into the right piriformis. The sacroiliac joints and symphysis pubis are intact. No acute proximal femoral fracture is present. Alignment of the hips is anatomic. Note is made of a nondisplaced fracture of the anterior wall of the right acetabulum. This is new since CT of July 17, 2020. There may also be a healing fracture of the medial aspect of the left pubic bone as well as the right inferior pubic ramus. IMPRESSION: 1. No acute proximal femoral fracture. 2. Moderate acute intramuscular hemorrhage within the right gluteal musculature extending into the right piriformis. 3. Nondisplaced fracture of the anterior wall of the right acetabulum. This is age indeterminate but appears subacute. Suspected healing fractures of the medial left pubic bone and right inferior pubic ramus. ACT 112: Negative or not required by law. Electronically signed by: Osiel Tafoya M.D. 01/28/2021 1:44 PM PG Care Time/CCT Total # of Minutes Spent Total Time Spent with Patient: Total time spent is greater than 50% in coordination of care (as documented) at patient's floor/unit and/or counseling patient: Coding Level of Care Code 19486 Initial Inpt Care Lvl 3 Diagnoses Hyperlipidemia E78.5 Hypothyroid E03.9 Hypothyroidism type: acquired Acetabular fracture S32.409A Warfarin-induced coagulopathy D68.32; T45.515A Atrial fibrillation I48.91 Dementia F03.90 Hematoma T14.8XXA (1) Hypothyroid Hypothyroidism type: acquired Qualified Code(s): E03.9 - Hypothyroidism, unspecified
[2021-01-28] MEDS ORDERED: cefTRIAXone SODIUM 1,000 MG/50 ML BAG IV STA (20:36)
[2021-01-28] MEDS ORDERED: MAGNESIUM HYDROXIDE SUSP 30 ML UDC PO PRN (21:08)
[2021-01-28] MEDS ORDERED: ALUMINUM/MAGNESIUM SUSP 30 ML UDC PO PRN (21:08)
[2021-01-28] MEDS ORDERED: ONDANSETRON INJ 2 MG/ML 2 ML VIAL IV PRN (21:08)
[2021-01-28] MEDS: DORZOLAMIDE/TIMOLOL 22.3/6.8MG/ML 10 ML BTL OPB SCH (22:45)
[2021-01-28] MEDS: ATORVASTATIN 20 MG TAB PO SCH (22:47)
[2021-01-28] MEDS: LEVOTHYROXINE SODIUM 50 MCG TABLET PO SCH (22:47)
[2021-01-28] MEDS: MEMANTINE HCL 10 MG TAB PO SCH (22:47)
[2021-01-28] MEDS: DONEPEZIL HCL 10 MG TAB PO SCH (22:47)
[2021-01-28] MEDS: MULTIVITAMIN TAB PO SCH (22:50)
[2021-01-28] MEDS: BIMATOPROST 0.01% OP SOLN 2.5 ML BTL OPB SCH (22:51)
[2021-01-29] MEDS ORDERED: cefTRIAXone SODIUM 1,000 MG in DEXTROSE 5% 50 ML IV STA (00:30)
[2021-01-29] MEDS: ACETAMINOPHEN 325 MG TAB PO PRN ×3 (01:16→20:45)
[2021-01-29 06:26] LABS: Basophils # (auto) 0.01 K/uL (0-0.2); Basophils % (auto) 0.2 %; Eosinophils # (auto) 0.05 K/uL (0-0.5); Eosinophils % (auto) 0.8 %; Hematocrit (blood only) 35.2 % (37-47); Hemoglobin 11.3 g/dL (12.0-16.0); Lymphocytes # (auto) 1.08 K/uL (1.2-3.4); Lymphocytes % (auto) 17.1 %; Mean Corpuscular Hemoglobin 31.2 pg (25-34); Mean Corpuscular Hgb Conc 32.1 g/dL (32-36); Mean Corpuscular Volume 97.2 fL (80-100); Monocytes # (auto) 0.74 K/uL (0.11-0.59); Monocytes % (auto) 11.7 %; Neutrophils # (auto) 4.44 K/uL (1.4-6.5); Neutrophils % (auto) 70.2 %; Platelet Count 158 K/uL (130-400); RDW Coefficient of Variation 17.1 % (11.5-14.5); RDW Standard Deviation 60.7 fL (36.4-46.3); Red Blood Count 3.62 M/uL (4.2-5.4); White Blood Count 6.32 K/uL (4.8-10.8)
[2021-01-29 06:36] LABS: INR 1.4 (0.9-1.1); Prothrombin Time 13.4 Seconds (9.0-12.0)
[2021-01-29 06:56] LABS: Albumin Level 2.9 gm/dl (3.4-5.0); BUN Creatinine Ratio 22.2 (10-20); Calcium 8.8 mg/dl (8.5-10.1); Creatinine Clr Calc Pharmacy 50.4 ml/min; Est GFR (African American) 86.2 ml/min; Est GFR (Non-African American) 74.4 ml/min; Magnesium 2.3 mg/dl (1.8-2.4); Potassium 4.5 mmol/L (3.5-5.1)
[2021-01-29 06:59] LABS: Bilirubin,Total 1.8 mg/dl (0.2-1); Total Protein 5.9 gm/dl (6.4-8.2)
[2021-01-29] MEDS: ASPIRIN 81 MG ECTAB PO SCH (08:44)
[2021-01-29] MEDS: IPRATROPIUM BROMIDE NASAL SPRAY 0.06% 15ML SCH (08:44)
[2021-01-29] MEDS: DORZOLAMIDE/TIMOLOL 22.3/6.8MG/ML 10 ML BTL OPB SCH (08:44)
[2021-01-29] MEDS: MEMANTINE HCL 10 MG TAB PO SCH ×2 (08:45→20:45)
[2021-01-29 13:01] LABS: Basophils # (auto) 0.01 K/uL (0-0.2); Basophils % (auto) 0.1 %; Eosinophils # (auto) 0.05 K/uL (0-0.5); Eosinophils % (auto) 0.7 %; Hematocrit (blood only) 34.5 % (37-47); Hemoglobin 11.1 g/dL (12.0-16.0); Immature Granulocytes # (auto) 0.01 K/uL (0.00-0.02); Immature Granulocytes % (auto) 0.1 %; Lymphocytes # (auto) 1.13 K/uL (1.2-3.4); Lymphocytes % (auto) 15.7 %; Mean Corpuscular Hemoglobin 31.1 pg (25-34); Mean Corpuscular Hgb Conc 32.2 g/dL (32-36); Mean Corpuscular Volume 96.6 fL (80-100); Mean Platelet Volume 10.7 fL (7.4-10.4); Monocytes # (auto) 0.83 K/uL (0.11-0.59); Monocytes % (auto) 11.5 %; Neutrophils # (auto) 5.17 K/uL (1.4-6.5); Neutrophils % (auto) 71.9 %; Platelet Count 159 K/uL (130-400); RDW Coefficient of Variation 17.2 % (11.5-14.5); RDW Standard Deviation 60.6 fL (36.4-46.3); Red Blood Count 3.57 M/uL (4.2-5.4)
--- NOTE | 2021-01-29 13:59 | Hospitalist Progress Note ---
Date of Service January 29, 2021 Assessment & Plan (1) Acetabular fracture: Plan: Patient has right acetabular fracture on CT scan. - Continue Tylenol and ice as needed; pain is quite minimal presently. - Orthopedics consult pending. - PT/OT once cleared for weightbearing (2) Hematoma: Plan: Baseline hgb ~13. Patient did drop 2 g (11) with clear hematoma. - Follow H&H -> Stable on 01/29. - Treated coagulopathy as noted below (3) Warfarin-induced coagulopathy: Plan: INR was 4 while on Coumadin for afib. Given vitamin K 5 mg IV x 1 in the ED. (Of note, the patient has a porcine mitral valve.) - INR down to 1.4 on 01/29. - Monitor (4) Atrial fibrillation: Plan: Presently self rate-controlled. - Hold anticoagulation as noted - Not on any AV joellen blocking agents apart from timolol for glaucoma. - Monitor HR. (5) Hyperlipidemia: Plan: - Continue Lipitor (6) Hypothyroid: Plan: TSH was 1.7 in 05/2020. No signs/symptoms of hypo-/hyperthyroidism. - Continue home Synthroid 50 mcg - Recheck TSH (7) Dementia: Plan: Very responsive and pleasant. - Continued home Aricept and memantine (8) DVT prophylaxis: Plan: SCDs - Holding heparin for hematoma and anemia Admission and Anticipated Discharge Date Admission Date: January 28, 2021 Subjective Feels a little "blah," but cannot focalize these complaints. Not in any pain in the hips, stomach, or chest. Reports no fevers/chills, chest pain, shortness of breath, abdominal pain, nausea, or vomiting. Physical Exam Constitutional: WD/WN, vitals as above Eyes: EOM intact bilaterally; no conjunctival abnormality ENMT: external ear and nose normal, oropharynx normal Neck: trachea midline, no thyromegaly normal visual inspection Respiratory: normal respiratory effort, lungs clear to auscultation no respiratory distress Cardiovascular: RRR, no murmur, no edema Gastrointestinal (Abdomen): Inspection/Auscultation: abdomen normal to inspection; abdomen not distended Musculoskeletal: no cyanosis or clubbing, extremities motor strength 5/5 Skin: no rashes, warm and dry Neurologic: moves all extremities and awake Psychiatric: Orientation: alert, oriented to person and cooperative Results & Data Results & Data ([facility]) Vital Signs (Past 12 Hours) Vital Signs Temp Pulse Pulse Resp BP BP Pulse Ox 01/29/21 12:00 36.5 C 55 L 16 96/67 L 98 01/29/21 10:46 65 01/29/21 07:52 36.1 C L 75 18 114/76 94 01/29/21 04:00 36.4 C L 70 20 101/72 96 PG Care Time/CCT Total # of Minutes Spent Total Time Spent with Patient: Total time spent is greater than 50% in coordination of care (as documented) at patient's floor/unit and/or counseling patient: Coding Level of Care Code 44848 Subseq Hosp Care Lvl 3 Diagnoses Acetabular fracture S32.409A Hematoma T14.8XXA Warfarin-induced coagulopathy D68.32; T45.515A Hyperlipidemia E78.5 Atrial fibrillation I48.91 Hypothyroid E03.9 Hypothyroidism type: acquired Dementia F03.90 DVT prophylaxis Z29.9 (1) Hypothyroid Hypothyroidism type: acquired Qualified Code(s): E03.9 - Hypothyroidism, unspecified
--- NOTE | 2021-01-29 15:51 | Orthopedic Consultation ---
Date of Service January 29, 2021 Assessment & Plan (1) Acetabular fracture: She was seen and examined by Dr. Freeman. She has a small chip fracture of the anterior wall of the acetabulum. This does not involve the weightbearing portion of the acetabulum. She can do PT/OT, weight bear as tolerated. She does have some older pelvis fractures as well. She does not need any surgery at this time. She can follow up as needed as an outpatient. History of Present Illness Reason for Consultation: .right acetabular fracture Requesting Physician: . Attending Physician: Tomas Bustos MD . 85 y/o patient, with history of dementia, with complaints of right hip pain. She denies any other pain. Her history was obtained from the chart. She does not recall if she fell or why her hip hurts. Per the h & p she was in the ER 12/29 and had a pelvis xray. Then just couple of days ago was brought back to the ER because she would not ambulate. Allergies Allergy/AdvReac Type Severity Reaction Status Date / Time No Known Drug Allergies Allergy Unknown Verified 01/28/21 13:42 Home Medications Medication Instructions Recorded Confirmed Type acetaminophen 325 mg tablet 650 mg PO Q4 PRN 07/25/20 01/28/21 History (Tylenol) aspirin 81 mg tablet,delayed 81 mg PO DAILY 07/25/20 01/28/21 History release atorvastatin 20 mg tablet (Lipitor) 20 mg PO HS 07/25/20 01/28/21 History bimatoprost 0.01 % eye drops 1 drp OPB HS 07/25/20 01/28/21 History (Lumigan) cyanocobalamin (vitamin B-12) 1,000 mcg PO PM 07/25/20 01/28/21 History 1,000 mcg tablet (Vitamin B-12) donepezil 10 mg tablet (Aricept) 10 mg PO QPM 07/25/20 01/28/21 History dorzolamide 22.3 mg-timolol 6.8 1 drp OPB BID 07/25/20 01/28/21 History mg/mL eye drops levothyroxine 50 mcg tablet 50 mcg PO QPM 07/25/20 01/28/21 History (Synthroid) multivitamin 1 tab PO PM 07/25/20 01/28/21 History netarsudil 0.02 % eye drops 1 drp OPL DAILY 07/25/20 01/28/21 History (Rhopressa) warfarin 2 mg tablet 2 mg PO DAILY 07/25/20 01/28/21 History ipratropium bromide 21 mcg (0.03 2 spray INTRANASAL DAILY #30 ml 09/04/20 01/28/21 Rx %) nasal spray memantine 10 mg tablet 10 mg PO BID #60 tab 12/24/20 01/28/21 Rx Past Med/Surg History Medical History Bilateral leg pain Bronchitis Dementia Dizziness Dysphonia Encounter for monitoring coumadin therapy Endocarditis Streptococcus Herpes zoster Septicemia Surgical History H/O mitral valve replacement History of cataract surgery Family History Denies family history of Hearing loss Heart disease Allergies Myocardial infarction Hypertension Stroke Asthma Social History Smoking Status: Former smoker Tobacco Type: Cigarettes Smoking End Date: + 20 years ago; Second Hand Exposure: No; Hx Alcohol Use: No Hx Substance Use: No Preferred Language: Korean Communication Ability: Impaired Handkerchief Sample Clerk Required: No Beliefs That Will Affect Care: None marital status: Current Living Situation: Long-Term Current Living Situation Comment: lives at [facility] current occupational status: retired How many Children do You have: 2 Other Information That Helps Us Care for You: No Feels Safe at Home: Yes Safety Concerns: Feels Safe At This Time Assistive Devices: Glasses Assistive Devices Comment: Reading Glasses Review of Systems All systems reviewed & are unremarkable except as noted in HPI & below. Physical Exam . alert. NAD. No pain with motion of the left leg. She has some ecchymosis of the right proximal lateral thigh. Small bruise di stally as well. She does have some pain with range of motion of her hip, particularly hip flexion. Results & Data Results & Data Laboratory Results . Diagnostic Findings . PG Care Time/CCT Total # of Minutes Spent Total Time Spent with Patient: Total time spent is greater than 50% in coordination of care (as documented) at patient's floor/unit and/or counseling patient: Coding Level of Care Code 78867 Inpt Consult Level 3 Diagnoses Acetabular fracture S32.401A Encounter type: initial encounter Fracture alignment: nondisplaced Fracture type: closed Laterality: right Sublocation of acetabulum: unspecified portion of acetabulum (1) Acetabular fracture Encounter type: initial encounter Fracture alignment: nondisplaced Fracture type: closed Laterality: right Sublocation of acetabulum: unspecified portion of acetabulum Qualified Code(s): S32.401A - Unspecified fracture of right acetabulum, initial encounter for closed fracture
[2021-01-29] MEDS: ATORVASTATIN 20 MG TAB PO SCH (20:45)
[2021-01-29] MEDS: LEVOTHYROXINE SODIUM 50 MCG TABLET PO SCH (20:45)
[2021-01-29] MEDS: BIMATOPROST 0.01% OP SOLN 2.5 ML BTL OPB SCH ×2 (20:45→20:46)
[2021-01-29] MEDS: DONEPEZIL HCL 10 MG TAB PO SCH (20:45)
[2021-01-29] MEDS: CYANOCOBALAMIN 500 MCG TABLET (VITAMIN B-12) PO SCH (20:45)
[2021-01-29] MEDS: MULTIVITAMIN TAB PO SCH (20:45)
[2021-01-30 06:04] LABS: Hematocrit (blood only) 32.7 % (37-47); Hemoglobin 10.7 g/dL (12.0-16.0); Mean Corpuscular Hemoglobin 31.3 pg (25-34); Mean Corpuscular Hgb Conc 32.7 g/dL (32-36); Mean Corpuscular Volume 95.6 fL (80-100); Mean Platelet Volume 10.7 fL (7.4-10.4); Platelet Count 146 K/uL (130-400); RDW Coefficient of Variation 17.1 % (11.5-14.5); RDW Standard Deviation 58.5 fL (36.4-46.3); Red Blood Count 3.42 M/uL (4.2-5.4); White Blood Count 5.65 K/uL (4.8-10.8)
[2021-01-30 06:13] LABS: INR 1.2 (0.9-1.1); Prothrombin Time 11.6 Seconds (9.0-12.0)
[2021-01-30 06:39] LABS: BUN Creatinine Ratio 29.1 (10-20); Calcium 8.8 mg/dl (8.5-10.1); Creatinine Clr Calc Pharmacy 56.6 ml/min; Est GFR (Non-African American) 81.9 ml/min; Magnesium 2.4 mg/dl (1.8-2.4); Potassium 3.9 mmol/L (3.5-5.1)
[2021-01-30 06:50] LABS: Thyroid Stimulating Hormone 1.67 uIu/ml (0.300-4.500)
[2021-01-30] MEDS: ASPIRIN 81 MG ECTAB PO SCH (08:11)
[2021-01-30] MEDS: MEMANTINE HCL 10 MG TAB PO SCH ×2 (08:11→21:31)
[2021-01-30] MEDS: IPRATROPIUM BROMIDE NASAL SPRAY 0.06% 15ML SCH (08:12)
--- NOTE | 2021-01-30 14:36 | Hospitalist Progress Note ---
Date of Service January 30, 2021 Assessment & Plan (1) Acetabular fracture: Plan: Patient has right acetabular fracture on CT scan. - Continue Tylenol and ice as needed; pain is quite minimal presently. - Orthopedics consult seen. No plan for surgery. - PT/OT now that she is cleared for weightbearing. Plan for SNF when able. (2) Hematoma: Plan: Baseline hgb ~13. Patient did drop 2 g (11) with clear hematoma. - Follow H&H -> Stable on 01/30. - Treated coagulopathy as noted below (3) Warfarin-induced coagulopathy: Plan: INR was 4 while on Coumadin for afib. Given vitamin K 5 mg IV x 1 in the ED. (Of note, the patient has a porcine mitral valve.) - INR down to 1.2 on 01/30. - Monitor (4) Atrial fibrillation: Plan: Presently self rate-controlled. - Hold anticoagulation as noted - Not on any AV joellen blocking agents apart from timolol for glaucoma. Disco ntinued the timolol given her HR and generally low/borderline BPs. - Monitor HR. (5) Hyperlipidemia: Plan: - Continue Lipitor (6) Hypothyroid: Plan: TSH was 1.7 in 05/2020 and this admission. No signs/symptoms of hypo- /hyperthyroidism. - Continue home Synthroid 50 mcg - Recheck TSH (7) Dementia: Plan: Very responsive and pleasant. - Continued home Aricept and memantine (8) DVT prophylaxis: Plan: SCDs - Holding heparin for hematoma and anemia - Can restart warfarin on discharge. Admission and Anticipated Discharge Date Admission Date: January 28, 2021 Subjective Seen during breakfast. Doing well. Reports some mild, continued pain the right hip. Reports no fevers/chills, chest pain, shortness of breath, abdominal pain, nausea, or vomiting. Physical Exam Constitutional: WD/WN, vitals as above Eyes: EOM intact bilaterally; no conjunctival abnormality ENMT: external ear and nose normal, oropharynx normal Neck: trachea midline, no thyromegaly normal visual inspection Respiratory: normal respiratory effort, lungs clear to auscultation no respiratory distress Cardiovascular: RRR, no murmur, no edema Gastrointestinal (Abdomen): Inspection/Auscultation: abdomen normal to inspection; abdomen not distended Musculoskeletal: no cyanosis or clubbing, extremities motor strength 5/5 Skin: no rashes, warm and dry Neurologic: moves all extremities and awake Psychiatric: Orientation: alert, oriented to person and cooperative Results & Data Results & Data ([facility]) Vital Signs (Past 12 Hours) Vital Signs Temp Pulse Pulse Resp BP BP Pulse Ox 01/30/21 11:30 36.3 C L 76 18 92/65 L 96 01/30/21 07:54 88 01/30/21 07:43 36.5 C 85 18 118/83 100 01/30/21 04:00 36.6 C 91 H 18 100/75 98 PG Care Time/CCT Total # of Minutes Spent Total Time Spent with Patient: Total time spent is greater than 50% in coordination of care (as documented) at patient's floor/unit and/or counseling patient: Coding Level of Care Code 97290 Subseq Hosp Care Lvl 3 Diagnoses Acetabular fracture S32.409A Hematoma T14.8XXA Warfarin-induced coagulopathy D68.32; T45.515A Atrial fibrillation I48.91 Hyperlipidemia E78.5 Hypothyroid E03.9 Hypothyroidism type: acquired Dementia F03.90 DVT prophylaxis Z29.9 (1) Hypothyroid Hypothyroidism type: acquired Qualified Code(s): E03.9 - Hypothyroidism, unspecified
[2021-01-30] MEDS: ACETAMINOPHEN 325 MG TAB PO PRN (21:30)
[2021-01-30] MEDS: BIMATOPROST 0.01% OP SOLN 2.5 ML BTL OPB SCH ×2 (21:30)
[2021-01-30] MEDS: LEVOTHYROXINE SODIUM 50 MCG TABLET PO SCH (21:31)
[2021-01-30] MEDS: CYANOCOBALAMIN 500 MCG TABLET (VITAMIN B-12) PO SCH (21:31)
[2021-01-30] MEDS: MULTIVITAMIN TAB PO SCH (21:31)
[2021-01-30] MEDS: DONEPEZIL HCL 10 MG TAB PO SCH (21:31)
[2021-01-30] MEDS: ATORVASTATIN 20 MG TAB PO SCH (21:36)
--- NOTE | 2021-01-31 06:00 | Electrocardiogram Report ---
Test Reason : Blood Pressure : / mmHG Vent. Rate : 068 BPM Atrial Rate : 049 BPM P-R Int : 000 ms QRS Dur : 090 ms QT Int : 428 ms P-R-T Axes : 000 005 -11 degrees QTc Int : 455 ms Atrial fibrillation Septal infarct (cited on or before 13-JAN-2014) Abnormal ECG When compared with ECG of 25-JUL-2020 18:15, Vent. rate has decreased BY 33 BPM Inverted T waves have replaced nonspecific T wave abnormality in Inferior leads Confirmed by Michelet Momin ([id number]) on 01/31/2021 6:00:25 AM Referred By: Cesar Flower Confirmed By:Michelet Momin
[2021-01-31 06:04] LABS: Hematocrit (blood only) 33.6 % (37-47); Hemoglobin 10.7 g/dL (12.0-16.0); Mean Corpuscular Hemoglobin 30.7 pg (25-34); Mean Corpuscular Hgb Conc 31.8 g/dL (32-36); Mean Corpuscular Volume 96.3 fL (80-100); Mean Platelet Volume 9.9 fL (7.4-10.4); Platelet Count 146 K/uL (130-400); RDW Coefficient of Variation 17.2 % (11.5-14.5); RDW Standard Deviation 59.7 fL (36.4-46.3); Red Blood Count 3.49 M/uL (4.2-5.4); White Blood Count 6.02 K/uL (4.8-10.8)
[2021-01-31 06:13] LABS: INR 1.1 (0.9-1.1); Prothrombin Time 11.4 Seconds (9.0-12.0)
[2021-01-31 06:34] LABS: BUN Creatinine Ratio 33.1 (10-20); Calcium 8.7 mg/dl (8.5-10.1); Creatinine Clr Calc Pharmacy 49.3 ml/min; Est GFR (African American) 89.1 ml/min; Est GFR (Non-African American) 76.9 ml/min; Potassium 3.8 mmol/L (3.5-5.1)
[2021-01-31] MEDS: IPRATROPIUM BROMIDE NASAL SPRAY 0.06% 15ML SCH (08:26)
[2021-01-31] MEDS: ASPIRIN 81 MG ECTAB PO SCH (08:26)
[2021-01-31] MEDS: MEMANTINE HCL 10 MG TAB PO SCH (08:26)
--- NOTE | 2021-01-31 12:52 | Discharge Summary ---
Date of Service January 31, 2021 Admission HPI Per Admitting Provider This is an 85-year-old female with past medical history of senile dementia, chronic atrial fibrillation, status post mitral valve replacement that presents today complaining of right hip pain. Patient is a limited historian but has a family friend in the room who is able to elaborate. Per history, patient was ambulatory episode yesterday. Earlier today, she was unable to ambulate at all which prompted staff at [facility] to transport to the emergency room for further evaluation. Here, she was found to have large hematoma on her right hip with some superficial ecchymosis. She is on Coumadin was found to be supratherapeutic with an INR 4. Of note, patient had 2 previous hospitalizations in the emergency room here on December 29 of this year. This was after a fall which landed on her right hip. At that time, head CT was negative. She was sent back to the assisted living but returned in the afternoon complaining more pain. Again, she was able to ambulate and x-ray of the pelvis at that time was negative for any fracture. Today, patient had a CT scan of the pelvis which showed right acetabular fracture along with healing fractures of the left pubic bone and right inferior pubic ramus. There is concern the patient may have had a second unwitnessed fall but the patient denies this. She does have a history of dementia and may not be reliable. However, the time my evaluation the patient is complaining of soreness of the right hip but otherwise appear to be in good spirits and in no acute distress. Vitals are stable, pulse is at 70 and she appears to be in atrial fibrillation on the monitor. Principal Diagnosis Fall, acetabular fracture, right thigh hematoma Discharge Exam Constitutional WD/WN, vitals as above Eyes EOM intact bilaterally; no conjunctival abnormality ENMT external ear and nose normal, oropharynx normal Neck trachea midline, no thyromegaly normal visual inspection Respiratory normal respiratory effort, lungs clear to auscultation no respiratory distress Cardiovascular RRR, no murmur, no edema Gastrointestinal (Abdomen) Inspection/Auscultation: abdomen normal to inspection; abdomen not distended Musculoskeletal no cyanosis or clubbing, extremities motor strength 5/5 Skin no rashes, warm and dry Neurologic moves all extremities and awake Psychiatric Orientation: alert, oriented to person and cooperative Discharge Data Allergies Allergy/AdvReac Type Severity Reaction Status Date / Time No Known Drug Allergies Allergy Unknown Verified 01/28/21 13:42 Consultations 01/28/21 14:16 ED Decision to Admit Stat 01/28/21 15:40 Consult Orthopedic Surgery Routine Ordered Studies 01/28/21 12:15 CT cervical spine wo con Stat CT head/brain wo con Stat CT hip RT wo con Stat CT pelvis wo con Stat Hospital Course (1) Acetabular fracture: Patient has right acetabular fracture on CT scan. - Continue Tylenol and ice as needed; pain is quite minimal presently. - Orthopedics consult seen. No plan for surgery. - PT/OT now that she is cleared for weightbearing. Plan for SNF when able. (2) Hematoma: Baseline hgb ~13. Patient did drop 2 g (11) with clear hematoma. - Follow H&H -> Stable on 01/31 and going up. - Treated coagulopathy as noted below (3) Warfarin-induced coagulopathy: INR was 4 while on Coumadin for afib. Given vitamin K 5 mg IV x 1 in the ED. (Of note, the patient has a porcine mitral valve.) - INR down to 1.2 on 01/30. - Monitor (4) Atrial fibrillation: Presently self rate-controlled. - Hold anticoagulation as noted - Not on any AV joellen blocking agents apart from timolol for glaucoma. Discontinued the timolol given her HR and generally low/borderline BPs. - Monitor HR. (5) Hyperlipidemia: - Continue Lipitor (6) Hypothyroid: TSH was 1.7 in 05/2020 and this admission. No signs/symptoms of hypo- /hyperthyroidism. - Continue home Synthroid 50 mcg (7) Dementia: Very responsive and pleasant. - Continued home Aricept and memantine (8) DVT prophylaxis: SCDs - Holding heparin for hematoma and anemia - Can restart warfarin on discharge. Total Time Total Time Spent Total Time Spent (In Minutes): 35 Discharge Plan Discharge Items Patient Disposition: Transfer [facility] Fac Reason For Visit: ACETABULAR FRACTURE, HEMATOMA Discharge Diagnosis: Fall, hematoma, pelvic fracture Condition on Discharge: Good Activity: Resume your previous activity Weightbearing: Full weightbearing Weightbearing Comment: As tolerated Non-emergency contact: Primary Care Provider and Surgeon Call non-emergency contact if: your symptoms worsen and your pain is worsening Follow-up/Referrals: Cesar Flower [Primary Care Provider] - Eloy Freeman MD [Physician] - (Follow-up as needed for ongoing hip pain.) Diet: Regular Addtl Attending Provider Instructions: Ms. De La Vega was admitted after a fall. She was found to have an acetabular "chip" fracture and a hematoma on her right thigh. Her hemoglobin did fall, but not to an extent that would need a transfusion (lowest hgb was 10.7 and baseline looked to be ~12 - 13). She had some ongoing pain in the right hip at the site of the hematoma, but no overt pain from the fracture. She was evaluated by orthopedics (Dr. Freeman) who felt this was a non-operative fracture. There were also some older fracture in the pelvis, all non-operative, that stemmed from likely prior falls. Her warfarin was reversed with vitamin K in the hospital with her INR being 1.2 on discharge. From our notes, it looks like she is on it for atrial fibrillatio n. Her warfarin can be resumed without a bridge and INR can be check in 3-4 days. Her INR on admission was 4.0, so her warfarin dose may need to be slightly lowered long-term. Overall, she was deemed stable to return to her care facility. She was in good spirits on the day of discharge. Pending Studies at Discharge: No Stand-Alone Forms: [facility] Skilled Items Patient informed of condition?: Yes DNR: No Discharge Level of Care: Skilled Communicable Disease: No Discharge Prognosis: Stable Lines: None Urinary Catheter: No Medications and DC Order Prescriptions: Continued memantine 10 mg tablet 10 mg PO BID Qty: 60 RF: 5 ipratropium bromide 21 mcg (0.03 %) spray,non-aerosol 2 spray intranasal DAILY Qty: 30 RF: 2 multivitamin Tablet 1 tab PO PM RF: 0 atorvastatin [Lipitor] 20 mg tablet 20 mg PO HS RF: 0 donepezil [Aricept] 10 mg tablet 10 mg PO QPM RF: 0 cyanocobalamin (vitamin B-12) [Vitamin B-12] 1,000 mcg Tablet 1,000 mcg PO PM RF: 0 aspirin 81 mg Tablet,Delayed Release (Dr/Ec) 81 mg PO DAILY RF: 0 levothyroxine [Synthroid] 50 mcg tablet 50 mcg PO QPM RF: 0 Lumigan 0.01 % drops 1 drp OPB HS RF: 0 Rhopressa 0.02 % drops 1 drp OPL DAILY RF: 0 acetaminophen [Tylenol] 325 mg Tablet 650 mg PO Q4 PRN (Reason: Fever Or Pain) RF: 0 warfarin 2 mg tablet 2 mg PO DAILY RF: 0 Discontinued dorzolamide-timolol 22.3-6.8 mg/mL drops 1 drp OPB BID RF: 0 Discharge Orders: Discharge Order (Routine); Ordered 01/31/21 Ordered By: Tomas Bustos Admission Data Admit Date/Time: 01/28/21 15:40 Attending Provider: Tomas Bustos Admit Provider: Robinson Brito Primary Care Provider: Cesar Flower Other Providers: Eloy Freeman ; Tomas Bustos Other Interventions: Discharge Summary Assessment (RN) Last Done: 01/31/21 11:58 Coding Level of Care Code D/C DAY MANAGEMENT >30 MINS Diagnoses Acetabular fracture S32.409A Hematoma T14.8XXA Warfarin-induced coagulopathy D68.32; T45.515A Atrial fibrillation I48.91 Hyperlipidemia E78.5 Hypothyroid E03.9 Hypothyroidism type: acquired Dementia F03.90 DVT prophylaxis Z29.9
== END 2021-01-31 13:47 | DRG 543 ==
LOC: ED 11:23 → 2N 15:40 → SUATTDRO 15:40 → 2N 19:40